=== PATIENT | female | born 1935 | race Caucasian/White ===

== ENCOUNTER 2022-06-12 17:00 | Inpatient (IN) | payer MEDICARE ==
[2022-06-12] MEDS ORDERED: MORPHINE SULFATE 4 MG/ML SYRINGE IVP STA (18:08)
[2022-06-12 18:44] LABS: Basophils # (A) 0.1 k/uL (0-0.2); Basophils % (A) 1 %; Eosinophils # (A) 0.1 k/uL (0-0.7); Eosinophils % (A) 1 %; HGB 12.5 gm/dL (11.4-16.0); Lymphocytes # (A) 1.9 k/uL (1.0-4.8); Lymphocytes % (A) 18 %; MCH 31.9 pg (25.0-35.0); MCHC 33.8 g/dL (31.0-37.0); MCV 94.3 fL (80.0-100.0); Mean Platelet Volume 8.8; Monocytes # (A) 0.4 k/uL (0-1.0); Monocytes % (A) 4 %; Neutrophils # (A) 8.6 k/uL (1.3-7.7); Neutrophils % (A) 77 %; Platelet Count 192 k/uL (150-450); RBC 3.92 m/uL (3.80-5.40); RDW 13.6 % (11.5-15.5); WBC 11.1 k/uL (3.8-10.6)
[2022-06-12 18:50] LABS: Albumin 4.5 g/dL (3.5-5.0); Calcium 10.1 mg/dL (8.4-10.2); Potassium 4.8 mmol/L (3.5-5.1); Total Bilirubin 0.3 mg/dL (0.2-1.3); Total Protein 6.9 g/dL (6.3-8.2)
[2022-06-12 19:00] LABS: Partial Thromboplastin Time 22.8 sec (22.0-30.0); Prothrombin Time 10.5 sec (9.0-12.0)
--- NOTE | 2022-06-12 19:02 | XR ---
EXAMINATION TYPE: XR Hip RT and AP Pelvis DATE OF EXAM: 06/12/2022 COMPARISON: NONE HISTORY: Fall. Pain TECHNIQUE: 3 views FINDINGS: There is impacted fracture of the right femoral neck. There is no dislocation. There is 3 c m of displacement. The pelvic ring is intact. Proximal left femur is intact. IMPRESSION: Acute impacted and displaced femoral neck fracture of the right hip.
--- NOTE | 2022-06-12 19:03 | XR ---
EXAMINATION TYPE: XR chest 1V DATE OF EXAM: 06/12/2022 COMPARISON: NONE HISTORY: Preop TECHNIQUE: Single view FINDINGS: There is no heart failure nor confluent pneumonic infiltrate. Costophrenic angles are clear . There are no hilar masses. The bony thorax is intact. IMPRESSION: No active cardiopulmonary disease. Normal heart.
--- NOTE | 2022-06-12 20:33 | ED ---
General Adult HPI - General Chief complaint: Fall Stated complaint: Fall/hip pain Time Seen by Provider: 06/12/22 17:24 Source: family Mode of arrival: wheelchair Limitations: no limitations - History of Present Illness Initial comments: This is an 86-year-old female with a past medical history including hypertension, diabetes as well as mild dementia presents emergency Department with her daughter and EMS after a fall in the parking lot. The patient stated that she was walking quickly around the car when she a mechanical fall, tripping and falling landing on her right hip. The patient stated that she did not hit her head and did not lose consciousness. The patient complained of right hip pain and had a shortened and rotated right hip. The patient denied any other trauma. The patient was resting in bed comfortably and denied any lightheade dness, dizziness as well as any fevers or chills. - Related Data Home Medications Medication Instructions Recorded Confirmed Albuterol Inhaler [Ventolin Hfa 2 puff INHALATION RT-Q4H PRN 06/12/22 06/12/22 Inhaler] Albuterol Nebulized [Ventolin 2.5 mg INHALATION RT-QID PRN 06/12/22 06/12/22 Nebulized] Aspirin EC [Ecotrin Low Dose] 81 mg PO DAILY 06/12/22 06/12/22 Gabapentin [Neurontin] 100 mg PO HS 06/12/22 06/12/22 HYDROcodone/APAP 7.5-325MG [[place] 1 tab PO Q6H PRN 06/12/22 06/12/22 7.5-325] Levothyroxine Sodium [Synthroid] 50 mcg PO DAILY 06/12/22 06/12/22 Ondansetron Odt [Zofran Odt] 4 mg PO Q4-6H PRN 06/12/22 06/12/22 guaiFENesin 200 mg PO Q6H PRN 06/12/22 06/12/22 lisinopriL [Zestril] 5 mg PO DAILY 06/12/22 06/12/22 Allergies Allergy/AdvReac Type Severity Reaction Status Date / Time No Known Allergies Allergy Verified 06/12/22 21:22 Review of Systems ROS Statement: Those systems with pertinent positive or pertinent negative responses have been documented in the HPI. ROS Other: All systems not noted in ROS Statement are negative. Past Medical History Past Medical History: COPD, Diabetes Mellitus, Renal Disease History of Any Multi-Drug Resistant Organisms: None Reported Past Surgical History: Appendectomy, Hysterectomy Additional Past Surgical History / Comment(s): gallbladder removed Past Psychological History: No Psychological Hx Reported Smoking Status: Current every day smoker Past Alcohol Use History: None Reported Past Drug Use History: None Reported General Exam Limitations: no limitations General appearance: alert, in no apparent distress Head exam: Present: atraumatic, normocephalic Eye exam: Present: normal appearance, PERRL Pupils: Present: normal accommodation ENT exam: Present: normal exam, normal oropharynx, mucous membranes moist Neck exam: Present: normal inspection, full ROM Respiratory exam: Present: normal lung sounds bilaterally Cardiovascular Exam: Present: regular rate, normal rhythm, normal heart sounds GI/Abdominal exam: Present: soft, normal bowel sounds Extremities exam: Present: normal inspection (Normal inspection of the left hip and left lower extremity. Tenderness palpation noted to the posterior right hip with decreased range of motion. Right leg was externally rotated and shortened), full ROM Back exam: Present: normal inspection, full ROM Neurological exam: Present: alert, oriented X3, CN II-XII intact Psychiatric exam: Present: normal affect, normal mood Skin exam: Present: warm, dry Course Vital Signs 06/12/22 06/12/22 06/12/22 17:18 17:21 21:28 Temperature 97.7 F 98.4 F Pulse Rate 85 81 Pulse Rate [ 85 Pulse Oximetery ] Respiratory 18 18 16 Rate Blood Pressure 158/82 158/82 Blood Pressure 153/84 [Left Arm] O2 Sat by Pulse 95 91 L Oximetry Medical Decision Making - Medical Decision Making The patient was seen and evaluated in the emergency department. On physical exam, the patient was resting in bed without any acute distress. Vital signs admission were stable and within normal limits. Due to the nature the patient's complaints, an x-ray of the right hip and pelvis were obtained. X-ray showed an acute impacted fracture of the right femoral neck. Due to these findings, orthopedic surgery, Dr. Brown was contacted. She did agree to accept the patient for admission and requested medical evaluation for clearance. The patient and her daughter were told of these results and the plan for admission and surgical intervention in the morning. They were agreeable to this plan and the patient was made nothing by mouth at midnight for surgery tomorrow and was admitted in stable condition. - Lab Data Result diagrams: 06/12/22 18:20 06/12/22 18:20 Lab Results 06/12/22 06/12/22 06/12/22 Range/Units 18:20 18:20 18:20 WBC 11.1 H (3.8-10.6) k/uL RBC 3.92 (3.80-5.40) m/uL Hgb 12.5 (11.4-16.0) gm/dL Hct 37.0 (34.0-46.0) % MCV 94.3 (80.0-100.0) fL MCH 31.9 (25.0-35.0) pg MCHC 33.8 (31.0-37.0) g/dL RDW 13.6 (11.5-15.5) % Plt Count 192 (150-450) k/uL MPV 8.8 Neutrophils % 77 % Lymphocytes % 18 % Monocytes % 4 % Eosinophils % 1 % Basophils % 1 % Neutrophils # 8.6 H (1.3-7.7) k/uL Lymphocytes # 1.9 (1.0-4.8) k/uL Monocytes # 0.4 (0-1.0) k/uL Eosinophils # 0.1 (0-0.7) k/uL Basophils # 0.1 (0-0.2) k/uL PT 10.5 (9.0-12.0) sec INR 1.0 (<1.2) APTT 22.8 (22.0-30.0) sec Sodium 138 (137-145) mmol/L Potassium 4.8 (3.5-5.1) mmol/L Chloride 106 (98-107) mmol/L Carbon Dioxide 24 (22-30) mmol/L Anion Gap 8 mmol/L BUN 42 H (7-17) mg/dL Creatinine 1.24 H (0.52-1.04) mg/dL Est GFR (CKD-EPI)AfAm 46 (>60 ml/min/1.73 sqM) Est GFR (CKD-EPI)NonAf 40 (>60 ml/min/1.73 sqM) Glucose 131 H (74-99) mg/dL Calcium 10.1 (8.4-10.2) mg/dL Total Bilirubin 0.3 (0.2-1.3) mg/dL AST 24 (14-36) U/L ALT 22 (4-34) U/L Alkaline Phosphatase 98 (38-126) U/L Total Protein 6.9 (6.3-8.2) g/dL Albumin 4.5 (3.5-5.0) g/dL Urine Color Urine Appearance (Clear) Urine pH (5.0-8.0) Ur Specific [place] (1.001-1.035) Urine Protein (Negative) Urine Glucose (UA) (Negative) Urine Ketones (Negative) Urine Blood (Negative) Urine Nitrite (Negative) Urine Bilirubin (Negative) Urine Urobilinogen (<2.0) mg/dL Ur Leukocyte Esterase (Negative) Blood Type Blood Type Recheck Bld Type Recheck Status Spec Expiration Date 06/12/22 06/12/22 Range/Units 20:57 21:13 WBC (3.8-10.6) k/uL RBC (3.80-5.40) m/uL Hgb (11.4-16.0) gm/dL Hct (34.0-46.0) % MCV (80.0-100.0) fL MCH (25.0-35.0) pg MCHC (31.0-37.0) g/dL RDW (11.5-15.5) % Plt Count (150-450) k/uL MPV Neutrophils % % Lymphocytes % % Monocytes % % Eosinophils % % Basophils % % Neutrophils # (1.3-7.7) k/uL Lymphocytes # (1.0-4.8) k/uL Monocytes # (0-1.0) k/uL Eosinophils # (0-0.7) k/uL Basophils # (0-0.2) k/uL PT (9.0-12.0) sec INR (<1.2) APTT (22.0-30.0) sec Sodium (137-145) mmol/L Potassium (3.5-5.1) mmol/L Chloride (98-107) mmol/L Carbon Dioxide (22-30) mmol/L Anion Gap mmol/L BUN (7-17) mg/dL Creatinine (0.52-1.04) mg/dL Est GFR (CKD-EPI)AfAm (>60 ml/min/1.73 sqM) Est GFR (CKD-EPI)NonAf (>60 ml/min/1.73 sqM) Glucose (74-99) mg/dL Calcium (8.4-10.2) mg/dL Total Bilirubin (0.2-1.3) mg/dL AST (14-36) U/L ALT (4-34) U/L Alkaline Phosphatase (38-126) U/L Total Protein (6.3-8.2) g/dL Albumin (3.5-5.0) g/dL Urine Color Light Yellow Urine Appearance Clear (Clear) Urine pH 5.5 (5.0-8.0) Ur Specific [place] 1.011 (1.001-1.035) Urine Protein Negative (Negative) Urine Glucose (UA) Negative (Negative) Urine Ketones Negative (Negative) Urine Blood Negative (Negative) Urine Nitrite Negative (Negative) Urine Bilirubin Negative (Negative) Urine Urobilinogen <2.0 (<2.0) mg/dL Ur Leukocyte Esterase Negative (Negative) Blood Type O Positive Blood Type Recheck No Previous Record Bld Type Recheck Status CABO Indicated Spec Expiration Date 06/15/20222312 Disposition Clinical Impression: Closed right hip fracture Disposition: ADMITTED IP TO THIS [facility] Condition: Stable Is patient prescribed a controlled substance at d/c from ED?: No Referrals: Nonstaff,Physician [Primary Care Provider] - 1-2 days Time of Disposition: 20:00 Decision Date: 06/12/22 Decision Time: 20:00
[2022-06-12] MEDS ORDERED: NALOXONE 0.4 MG/ML 1 ML VIAL IV PRN (20:35)
[2022-06-12] MEDS: SODIUM CHLORIDE 0.9% 1,000 ML IV SCH (20:57)
[2022-06-12] MEDS: HYDROmorphone 0.5 MG/0.5 ML SYRINGE IVP PRN (21:38)
[2022-06-12 21:41] LABS: Appearance,Urine Clear (Clear); Bilirubin,Urine Negative (Negative); Blood,Urine Negative (Negative); Color,Urine Light Yellow; Glucose,Urine (UA) Negative (Negative); Ketones,Urine Negative (Negative); Leukocyte Esterase,Urine Negative (Negative); Nitrite,Urine Negative (Negative); PH, Urine 5.5 (5.0-8.0); Protein,Urine Negative (Negative); Specific Gravity,Urine 1.011 (1.001-1.035); Urobilinogen,Urine <2.0 mg/dL (<2.0)
[2022-06-12] MEDS ORDERED: guaiFENesin SYRUP 100MG/5ML 200 MG/10 ML CUP PO PRN (22:22)
[2022-06-12] MEDS: GABAPENTIN 100 MG CAP PO SCH (22:40)
[2022-06-13] MEDS: HYDROmorphone 0.5 MG/0.5 ML SYRINGE IVP PRN (03:25)
[2022-06-13] MEDS: ONDANSETRON 4 MG/2 ML VIAL IVP PRN (06:31)
[2022-06-13] MEDS: LEVOTHYROXINE 50 MCG TAB PO SCH (06:31)
[2022-06-13] MEDS: ALBUTEROL NEBULIZED 2.5 MG/3 ML INHALATION PRN ×3 (07:24→18:04)
[2022-06-13] MEDS ORDERED: lisinopriL 5 MG TAB PO SCH (09:00)
[2022-06-13] MEDS: ASPIRIN 81 MG PO SCH (09:04)
[2022-06-13] MEDS: SODIUM CHLORIDE 0.9% 1,000 ML IV SCH ×2 (09:05→22:47)
--- NOTE | 2022-06-13 11:48 | P.HPOR ---
History of Present Illness H&P Date: 06/13/22 Chief Complaint: Right hip pain The patient is an 86-year-old female with a past medical history including COPD, diabetes, and renal failure who presented to the emergency department yesterday after sustaining a fall outside. The patient's daughter is at bedside and states that she was walking around her truck and fell. The patient does not use a cane or walker. She lives with her son but her daughter frequently takes care of her. X-rays in the emergency department revealed a displaced right femoral neck fracture. She was admitted to orthopedics for surgical intervention. Today, the patient appears comfortable laying in bed. She is very hard of hearing and is currently not wearing her hearing aids. Review of Systems ROS unobtainable: due to mental status Past Medical History Past Medical History: COPD, Diabetes Mellitus, Renal Disease Additional Past Medical History / Comment(s): diabetes controlled with diet History of Any Multi-Drug Resistant Organisms: None Reported Past Surgical History: Appendectomy, Hysterectomy Additional Past Surgical History / Comment(s): gallbladder removed Past Anesthesia/Blood Transfusion Reactions: No Reported Reaction Past Psychological History: No Psychological Hx Reported Smoking Status: Current every day smoker Past Alcohol Use History: None Reported Past Drug Use History: None Reported Medications and Allergies Home Medications Medication Instructions Recorded Confirmed Type Albuterol Inhaler [Ventolin Hfa 2 puff INHALATION RT-Q4H PRN 06/12/22 06/12/22 History Inhaler] Albuterol Nebulized [Ventolin 2.5 mg INHALATION RT-QID PRN 06/12/22 06/12/22 History Nebulized] Aspirin EC [Ecotrin Low Dose] 81 mg PO DAILY 06/12/22 06/12/22 History Gabapentin [Neurontin] 100 mg PO HS 06/12/22 06/12/22 History HYDROcodone/APAP 7.5-325MG [[place] 1 tab PO Q6H PRN 06/12/22 06/12/22 History 7.5-325] Levothyroxine Sodium [Synthroid] 50 mcg PO DAILY 06/12/22 06/12/22 History Ondansetron Odt [Zofran Odt] 4 mg PO Q4-6H PRN 06/12/22 06/12/22 History guaiFENesin 200 mg PO Q6H PRN 06/12/22 06/12/22 History lisinopriL [Zestril] 5 mg PO DAILY 06/12/22 06/12/22 History Allergies Allergy/AdvReac Type Severity Reaction Status Date / Time No Known Allergies Allergy Verified 06/12/22 21:22 Physical Examination Osteopathic Statement: *. No significant issues noted on an osteopathic structural exam other than those noted in the History and Physical/Consult. The patient is a 86 year old female that is no acute distress. She is alert and oriented x2 and very hard of hearing. The patient's head is normocephalic and atraumatic. Exam of the cervical spine reveals no pain upon palpation or range of motion. Exam of the bilateral upper extremities reveal no obvious deformities or pain upon range of motion. Exam of the left lower extremity reveals no pain upon palpation. Exam of the right lower extremity reveals a externally rotated and shortened leg. No pain upon palpation to the lateral hip. There is pain upon logrolling and any range of motion of the leg. Bilateral calves are soft and nontender. Patient has good foot and ankle motion bilaterally. Neurological and circulatory status is intact. Results X-rays of the right hip reveal a displaced femoral neck fracture. - Labs Labs: Abnormal Lab Results - Last 24 Hours (Table) 06/12/22 06/12/22 Range/Units 18:20 18:20 WBC 11.1 H (3.8-10.6) k/uL Neutrophils # 8.6 H (1.3-7.7) k/uL BUN 42 H (7-17) mg/dL Creatinine 1.24 H (0.52-1.04) mg/dL Glucose 131 H (74-99) mg/dL H & H 06/12/22 Range/Units 18:20 Hgb 12.5 (11.4-16.0) gm/dL Hct 37.0 (34.0-46.0) % Coagulation 06/12/22 Range/Units 18:20 INR 1.0 (<1.2) Result Diagrams: 06/12/22 18:20 06/12/22 18:20 Assessment and Plan (1) Diabetes mellitus Current Visit: Yes Status: Acute Code(s): E11.9 - TYPE 2 DIABETES MELLITUS WITHOUT COMPLICATIONS SNOMED Code(s): 37539238 (2) Renal failure Current Visit: Yes Status: Acute Code(s): N19 - UNSPECIFIED KIDNEY FAILURE SNOMED Code(s): 92471095 (3) COPD (chronic obstructive pulmonary disease) Current Visit: Yes Status: Acute Code(s): J44.9 - CHRONIC OBSTRUCTIVE PULMONARY DISEASE, UNSPECIFIED SNOMED Code(s): 05544274 (4) Closed right hip fracture Current Visit: Yes Status: Acute Code(s): S72.001A - FRACTURE OF UNSP PART OF NECK OF RIGHT FEMUR, INIT SNOMED Code(s): 787678800 Plan: The clinical and x-ray findings were discussed with the patient and her daughter. The case was discussed at length with Dr. Brown Treatment options were discussed and surgical intervention is recommended. We discussed the surgical plan as well as the expected postoperative course. Risks and benefits were reviewed including (but not limited to) the risks of infection, bleeding, blood clots, dislocation, delayed or nonunion, anesthesia-related complications and possible need for additional surgery. Questions were invited and answered. The patient expressed understanding and wishes to proceed with surgery. The patient will be kept on bedrest. Continue PRN pain management. NPO today. She is scheduled for a right hip hemiarthroplasty later this afternoon. She has been cleared by internal medicine this morning. Agree with above. PT seen and examined. Care discussed with the patient's daughter. Plan for hemiarthroplasty today.
[2022-06-13] MEDS ORDERED: PHENYLEPHRINE-0.9% NACL SYG 1,000 MCG/10 ML SYRINGE ONE (12:21)
[2022-06-13] MEDS ORDERED: PROPOFOL 10 MG/ML 20 ML VIAL IV ONE (12:21)
[2022-06-13] MEDS ORDERED: MIDAZOLAM 2 MG/2 ML VIAL ONE (12:21)
[2022-06-13] MEDS ORDERED: fentaNYL (PF) 50 MCG/ML 2 ML AMP ONE (12:21)
[2022-06-13] MEDS ORDERED: KETAMINE 10 MG/ML 20 ML VIAL ONE (12:21)
[2022-06-13] MEDS ORDERED: SODIUM CHLORIDE 0.9% 1,000 ML IV ONE ×2 (12:27→13:24)
--- NOTE | 2022-06-13 13:28 | P.CONS ---
History of Present Illness - Reason for Consult Preoperative clearance - History of Present Illness Patient is pleasant 86-year-old with moderate to severe dementia had a mechanical fall. Patient does have history of COPD with oxygen lives with the her son with frequent visits from daughter. X-rays showed a displaced right femoral fracture. Patient's EKG showed some ST depressions but patient is going for surgery today initially wanted to order an echocardiogram to see the any wall motion abnormalities patient doesn't have any history of coronary artery disease patient is bit dehydrated with the elevated creatinine of 1.24 baseline creatinine is not available bun of 42 to patient does have leukocytosis. Patient denied any chest pain or shortness of breath at this time patient is on 2 L of oxygen which she wears at home REVIEW OF SYSTEMS: All other review of systems are negative except those mentioned above PHYSICAL EXAMINATION: GENERAL: The patient is alert and oriented x2, not in any acute distress. Well developed, well nourished. HEENT: Pupils are round and equally reacting to light. EOMI. No scleral icterus. No conjunctival pallor. Normocephalic, atraumatic. No pharyngeal erythema. No thyromegaly. CARDIOVASCULAR: S1 and S2 present. No murmurs, rubs, or gallops. PULMONARY: Chest is clear to auscultation, no wheezing or crackles. ABDOMEN: Soft, nontender, nondistended, normoactive bowel sounds. No palpable organomegaly. MUSCULOSKELETAL: Deferred to orthopedic surgery EXTREMITIES: No cyanosis, clubbing, or pedal edema. NEUROLOGICAL: Gross neurological examination did not reveal any focal deficits. SKIN: No rashes. Assessment and plan -Preoperative risk assessment for orthopedic surgery for right hip fracture: Patient is moderate operative risk for surgery, same thing was discussed with the daughter at bedside and daughter is agreeable for surgery considering the surgery improves patient functionality. -Leukocytosis secondary to fall -Mild acute renal failure prerenal azotemia due to dehydration continue with IV fluids -COPD without any acute exacerbation continue with oxygen as needed -Hypertension next and have an hypothyroidism DVT prophylaxis: Subcutaneous heparin Past Medical History Past Medical History: COPD, Diabetes Mellitus, Renal Disease Additional Past Medical History / Comment(s): diabetes controlled with diet History of Any Multi-Drug Resistant Organisms: None Reported Past Surgical History: Appendectomy, Hysterectomy Additional Past Surgical History / Comment(s): gallbladder removed Past Anesthesia/Blood Transfusion Reactions: No Reported Reaction Past Psychological History: No Psychological Hx Reported Smoking Status: Current every day smoker Past Alcohol Use History: None Reported Past Drug Use History: None Reported Medications and Allergies Home Medications Medication Instructions Recorded Confirmed Type Albuterol Inhaler [Ventolin Hfa 2 puff INHALATION RT-Q4H PRN 06/12/22 06/12/22 History Inhaler] Albuterol Nebulized [Ventolin 2.5 mg INHALATION RT-QID PRN 06/12/22 06/12/22 History Nebulized] Aspirin EC [Ecotrin Low Dose] 81 mg PO DAILY 06/12/22 06/12/22 History Gabapentin [Neurontin] 100 mg PO HS 06/12/22 06/12/22 History HYDROcodone/APAP 7.5-325MG [[place] 1 tab PO Q6H PRN 06/12/22 06/12/22 History 7.5-325] Levothyroxine Sodium [Synthroid] 50 mcg PO DAILY 06/12/22 06/12/22 History Ondansetron Odt [Zofran Odt] 4 mg PO Q4-6H PRN 06/12/22 06/12/22 History guaiFENesin 200 mg PO Q6H PRN 06/12/22 06/12/22 History lisinopriL [Zestril] 5 mg PO DAILY 06/12/22 06/12/22 History Allergies Allergy/AdvReac Type Severity Reaction Status Date / Time No Known Allergies Allergy Verified 06/12/22 21:22 Physical Exam Vitals: Vital Signs Temp Pulse Pulse Resp BP BP Pulse Ox 06/13/22 12:00 95 06/13/22 11:50 90 06/13/22 11:41 88 06/13/22 09:00 97 16 96 06/13/22 07:42 98 134/76 90 L 06/13/22 07:41 96 06/13/22 07:28 97 06/13/22 07:24 95 06/13/22 01:29 98.3 F 86 15 107/66 93 L 06/12/22 21:28 98.4 F 85 16 153/84 91 L 06/12/22 17:21 81 18 158/82 06/12/22 17:18 97.7 F 85 18 158/82 95 Intake and Output 06/12/22 06/13/22 06/13/22 22:59 06:59 14:59 Intake Total 850 Output Total 1300 Balance -1300 850 Intake: IV 850 Output: Urine 1300 Other: Voiding Method Indwelling Catheter Weight 43.091 kg Results CBC & Chem 7: 06/12/22 18:20 06/12/22 18:20 Labs: Abnormal Lab Results - Last 24 Hours (Table) 06/12/22 06/12/22 Range/Units 18:20 18:20 WBC 11.1 H (3.8-10.6) k/uL Neutrophils # 8.6 H (1.3-7.7) k/uL BUN 42 H (7-17) mg/dL Creatinine 1.24 H (0.52-1.04) mg/dL Glucose 131 H (74-99) mg/dL
[2022-06-13] MEDS ORDERED: ceFAZolin 3,000 MG in SODIUM CHLORIDE 0.9% IRRIGATIO 3,000 ML IRRIGATION ONE (13:42)
[2022-06-13] MEDS ORDERED: MAGNESIUM HYDROXIDE 2,400 MG/10 ML CUP PO PRN (14:06)
[2022-06-13 14:11] LABS: Glucose,Whole Blood 98 mg/dL (70-110)
--- NOTE | 2022-06-13 14:30 | P.OP ---
Date of Procedure: 06/13/22 Preoperative Diagnosis: Right femoral neck fracture Postoperative Diagnosis: Same Procedure(s) Performed: Right hip uncemented hemiarthroplasty Implants: [employer], collared size 1 stem, +4 neck, 44 mm head Anesthesia: spinal Surgeon: Sophie Brown Founder And Chief Technical Officer #1: Saleem Cordova Founder And Chief Technical Officer #2: Olesya Amaro Estimated Blood Loss (ml): 100 Condition: stable Disposition: PACU Indications for Procedure: Brunilda is an 86-year-old female who had a ground-level fall sustaining a right femoral neck fracture that is displaced. We had a discussion with the patient and her daughter about her treatment options and they have decided to proceed with a harshad-hip arthroplasty. Description of Procedure: Patient, operative extremity, and procedure were identified in the preoperative holding area. After informed consent was obtained from the patient's daughter, her POA, the patient was brought back to the operating room. A spinal anesthetic was provided by the anesthesia team. The patient was then moved onto the operating table and placed in a lateral position with the [place] medina. All bony prominences and neurovascular structures were carefully padded and protected. The extremity was then prepped and draped in normal sterile fashion. After formal timeout was performed, a longitudinal incision was made centered over the greater trochanter. Dissection was carried down through the subcutaneo us tissue to the IT band. This was then split longitudinally and freed up from the abductors. The Charnley retractor was inserted. A modified Kidd injured her approach was utilized splitting the gluteus medius and lifting the anterior capsule along with lifting the abductors and part of the vastus. This was done with the hip in external rotation. The fracture was identified and there was a flush of hematoma. Further external rotation elevated the femoral neck and this was visualized down to the lesser trochanter. A revised neck cut was made about a finger's breath above the lesser trochanter. Using the corkscrew the femoral head was removed and measured 45 mm. The leg was then placed into the bag and external rotation. This revealed the proximal and of the femur. The jukebox routeman tool was then utilized to open the canal. The canal finder was then inserted followed by the rattail rasp. This was used to lateralize. The chili pepper rasp were then utilized to further lateralize. Serial broaches were then introduced with as much lateralization as possible and about 15 of anteversion. A size 1 was deemed to be a good fit. The broach was augmented with the trials a 0 neck and a 44 head. The hip was then reduced and taken through range of motion. It was stable past 90 of flexion and internal rotation. Patient was able to achieve full extension of the hip without undue tension. Leg lengths were just shy of even. There was some shuck. Hip was then dislocated and all trials were removed. The wound was thoroughly washed with pulse lavage. Final implants were selected a size 1 collared stem and 44 unipolar head. The stem was gently impacted into place. A 4+ neck was selected and fit into the 44 unipolar head. This construct was then inserted onto the Meyer taper and firmly tapped into place. The hip was then reduced and again taken through range of motion. The hip was stable and there was minimal shuck. Wound was again irrigated with pulse lavage. The abductors and capsule were repaired back to the bone with bone tunnels and FiberWire. There is good approximation of the soft tissue. The IT band was then repaired with a combination of FiberWire and stratafix. The remainder of the wound was closed in a layered fashion with 2-0 Vicryl and 4-0 Monocryl and skin glue. Wound was dressed with a operative foam dressing. Patient was aroused by the anesthesia team and brought back to PACU in stable condition.
--- NOTE | 2022-06-13 14:39 | XR ---
EXAMINATION TYPE: XR Hip Limited RT DATE OF EXAM: 06/13/2022 COMPARISON: NONE HISTORY: Postop hip surgery TECHNIQUE: Single view FINDINGS: There is right hip prosthesis. Components appear in anatomic position. IMPRESSION: No complicating process seen.
[2022-06-13] MEDS: HYDROcodone/APAP 7.5-325MG 1 EACH TAB PO PRN (15:52)
--- NOTE | 2022-06-13 19:39 | XR ---
EXAMINATION TYPE: XR pelvis AP view DATE OF EXAM: 06/13/2022 COMPARISON: Yesterday HISTORY: Postop hip surgery TECHNIQUE: Single view FINDINGS: There is right hip prosthesis. Components appear in anatomic position. IMPRESSION: No complicating process seen.
[2022-06-13 20:45] LABS: Glucose,Whole Blood 191 mg/dL (70-110)
[2022-06-13] MEDS ORDERED: HEPARIN SODIUM,PORCINE/PF 5,000 UNIT/0.5 ML SYRINGE SQ SCH (21:00)
[2022-06-13] MEDS: SENNOSIDES-DOCUSATE SODIUM 1 EACH TAB PO SCH (21:51)
[2022-06-13] MEDS: GABAPENTIN 100 MG CAP PO SCH (21:52)
[2022-06-14] MEDS: ONDANSETRON 4 MG/2 ML VIAL IVP PRN (01:31)
[2022-06-14 01:35] LABS: Glucose,Whole Blood 206 mg/dL (70-110)
[2022-06-14 05:57] LABS: Glucose,Whole Blood 179 mg/dL (70-110)
[2022-06-14] MEDS: LEVOTHYROXINE 50 MCG TAB PO SCH (06:00)
[2022-06-14] MEDS: ASPIRIN 81 MG PO SCH (08:50)
[2022-06-14] MEDS ORDERED: ENOXAPARIN 40 MG/0.4 ML SYRINGE SQ SCH (09:00)
[2022-06-14 09:02] LABS: Basophils # (A) 0.03 X 10*3/uL (0.00-0.10); Basophils % (A) 0.2 %; Eosinophils # (A) 0 X 10*3/uL (0.04-0.35); Eosinophils % (A) 0 %; HGB 9.8 g/dL (12.0-15.0); Immature Grans, Automated 0.3 %; Lymphocytes # (A) 0.56 X 10*3/uL (0.90-5.00); Lymphocytes % (A) 4.5 %; MCH 31.5 pg (27.0-32.0); MCHC 31.6 g/dL (32.0-37.0); MCV 99.7 fL (80.0-97.0); Monocytes # (A) 0.85 X 10*3/uL (0.20-1.00); Monocytes % (A) 6.8 %; NRBC Per 100 WBC 0 /100 WBCS (0.0-0.0); Neutrophils # (A) 11.03 X 10*3/uL (1.80-7.70); Neutrophils % (A) 88.2 %; Platelet Count 152 X 10*3/uL (140-440); RBC 3.11 X 10*6/uL (4.10-5.20); RDW 14.3 % (11.5-14.5); WBC 12.51 X 10*3/uL (4.50-10.00)
[2022-06-14 09:19] LABS: African American GFR (CKD) 33.7 (60.0-200.0); Anion Gap 11.4 mmol/L (10.00-18.00); BUN/Creat Ratio 21.18 Ratio (12.00-20.00); Blood Urea Nitrogen 34.1 mg/dL (9.0-27.0); Calcium 9.1 mg/dL (8.7-10.3); Non-African American GFR(CKD) 29.1 (60.0-200.0); Potassium 4.6 mmol/L (3.5-5.5)
--- NOTE | 2022-06-14 09:38 | XR ---
EXAMINATION TYPE: XR chest 1V portable DATE OF EXAM: 06/14/2022 COMPARISON: 06/12/2022 HISTORY: Hypoxia TECHNIQUE: Single frontal view of the chest is obtained. FINDINGS: There is hyperinflation. Bilateral lower lobe infiltrate and small effusion. Heart size no rmal. Curvature of the spine with vascular calcifications. No overt failure. IMPRESSION: 1. Bilateral lower lobe infiltrate and pleural effusion correlate for pneumonia. 2. COPD.
[2022-06-14 10:47] VITALS: BMI 17.4
[2022-06-14] MEDS: PIPERACILLIN-TAZOBACTAM 3.375 GM in SODIUM CHLORIDE 0.9% 100 ML IVPB SCH ×2 (11:24→22:05)
[2022-06-14 11:26] LABS: Glucose,Whole Blood 156 mg/dL (70-110)
[2022-06-14 12:34] LABS: ABG Base Excess -5.7 mmol/L; ABG HCO3 20 mmol/L (21-25); ABG Oxygen Saturation 84.4 % (94-97); ABG PCO2 37 mmHg (35-45); ABG PH 7.34 (7.35-7.45); ABG TCO2 21 mmol/L (19-24); Allen Test Performed? Yes
[2022-06-14 12:38] LABS: ABG PO2 50 mmHg (83-108)
[2022-06-14] MEDS: ALBUTEROL NEBULIZED 2.5 MG/3 ML INHALATION PRN (12:56)
--- NOTE | 2022-06-14 13:14 | P.PN ---
Subjective Progress Note Date: 06/14/22 Principal diagnosis: Status post right hip hemiarthroplasty This is a 86 year-old female post right hip hemiarthroplasty. This is post-op day 1. The patient was evaluated at the bedside today. The patient denies nausea, vomiting, abdominal pain, shortness of breath, and chest pain this morning. She states her pain is controlled at this time. The patient has not been up with physical therapy. A swallow evaluation has been ordered and we are awaiting pulmonary to see her as well. She is currently on a non-rebreather. The patient states her breathing feels good right now and she denies any shortness of breath or chest pain. Objective - Vital Signs Vital signs: Vital Signs Temp 99.7 F H 06/14/22 07:24 Pulse 96 06/14/22 13:07 Resp 18 06/14/22 13:07 BP 110/58 06/14/22 07:24 Pulse Ox 94 L 06/14/22 07:26 FiO2 Intake & Output 06/13/22 06/14/22 06/14/22 18:59 06:59 18:59 Intake Total 1051 Output Total 830 250 Balance 221 -250 Weight 43.091 kg Intake: IV 1051 Output: Urine 730 250 Estimated Blood Loss 100 Other: Voiding Method Indwelling Catheter Indwelling Catheter - Exam The patient does not appear in acute distress. Alert and orientated x3. Dressing is clean dry and intact. Incision appears fine with no erythema or active drainage. Calf is soft and nontender. Good foot and ankle motion without difficulty. Sensation and circulatory status is intact. - Labs CBC & Chem 7: 06/14/22 05:53 06/14/22 05:53 Labs: Abnormal Lab Results - Last 24 Hours (Table) 06/13/22 06/14/22 06/14/22 Range/Units 20:44 01:33 05:53 WBC 12.51 H (4.50-10.00) X 10*3/uL RBC 3.11 L (4.10-5.20) X 10*6/uL Hgb 9.8 L (12.0-15.0) g/dL Hct 31.0 L (37.2-46.3) % MCV 99.7 H (80.0-97.0) fL MCHC 31.6 L (32.0-37.0) g/dL Neutrophils # 11.03 H (1.80-7.70) X 10*3/uL Lymphocytes # 0.56 L (0.90-5.00) X 10*3/uL Eosinophils # 0 L (0.04-0.35) X 10*3/uL ABG pH (7.35-7.45) ABG pO2 (83-108) mmHg ABG HCO3 (21-25) mmol/L ABG O2 Saturation (94-97) % Chloride (96-109) mmol/L Carbon Dioxide (20.0-27.5) mmol/L BUN (9.0-27.0) mg/dL Creatinine (0.6-1.5) mg/dL Est GFR (CKD-EPI)AfAm (60.0-200.0) Est GFR (CKD-EPI)NonAf (60.0-200.0) BUN/Creatinine Ratio (12.00-20.00) Ratio Glucose (70-110) mg/dL POC Glucose (mg/dL) 191 H 206 H (70-110) mg/dL Total Creatine Kinase (30-135) U/L 06/14/22 06/14/22 06/14/22 Range/Units 05:53 05:55 11:24 WBC (4.50-10.00) X 10*3/uL RBC (4.10-5.20) X 10*6/uL Hgb (12.0-15.0) g/dL Hct (37.2-46.3) % MCV (80.0-97.0) fL MCHC (32.0-37.0) g/dL Neutrophils # (1.80-7.70) X 10*3/uL Lymphocytes # (0.90-5.00) X 10*3/uL Eosinophils # (0.04-0.35) X 10*3/uL ABG pH (7.35-7.45) ABG pO2 (83-108) mmHg ABG HCO3 (21-25) mmol/L ABG O2 Saturation (94-97) % Chloride 113 H (96-109) mmol/L Carbon Dioxide 19.0 L (20.0-27.5) mmol/L BUN 34.1 H (9.0-27.0) mg/dL Creatinine 1.6 H (0.6-1.5) mg/dL Est GFR (CKD-EPI)AfAm 33.7 L (60.0-200.0) Est GFR (CKD-EPI)NonAf 29.1 L (60.0-200.0) BUN/Creatinine Ratio 21.18 H (12.00-20.00) Ratio Glucose 181 H (70-110) mg/dL POC Glucose (mg/dL) 179 H 156 H (70-110) mg/dL Total Creatine Kinase (30-135) U/L 06/14/22 06/14/22 Range/Units 12:08 12:30 WBC (4.50-10.00) X 10*3/uL RBC (4.10-5.20) X 10*6/uL Hgb (12.0-15.0) g/dL Hct (37.2-46.3) % MCV (80.0-97.0) fL MCHC (32.0-37.0) g/dL Neutrophils # (1.80-7.70) X 10*3/uL Lymphocytes # (0.90-5.00) X 10*3/uL Eosinophils # (0.04-0.35) X 10*3/uL ABG pH 7.34 L (7.35-7.45) ABG pO2 50 L* (83-108) mmHg ABG HCO3 20 L (21-25) mmol/L ABG O2 Saturation 84.4 L (94-97) % Chloride (96-109) mmol/L Carbon Dioxide (20.0-27.5) mmol/L BUN (9.0-27.0) mg/dL Creatinine (0.6-1.5) mg/dL Est GFR (CKD-EPI)AfAm (60.0-200.0) Est GFR (CKD-EPI)NonAf (60.0-200.0) BUN/Creatinine Ratio (12.00-20.00) Ratio Glucose (70-110) mg/dL POC Glucose (mg/dL) (70-110) mg/dL Total Creatine Kinase 323 H (30-135) U/L Assessment and Plan (1) Diabetes mellitus Current Visit: Yes Status: Acute Code(s): E11.9 - TYPE 2 DIABETES MELLITUS WITHOUT COMPLICATIONS SNOMED Code(s): 28481699 (2) Renal failure Current Visit: Yes Status: Acute Code(s): N19 - UNSPECIFIED KIDNEY FAILURE SNOMED Code(s): 87032290 (3) COPD (chronic obstructive pulmonary disease) Current Visit: Yes Status: Acute Code(s): J44.9 - CHRONIC OBSTRUCTIVE PULMONARY DISEASE, UNSPECIFIED SNOMED Code(s): 69519028 (4) Closed right hip fracture Current Visit: Yes Status: Acute Code(s): S72.001A - FRACTURE OF UNSP PART OF NECK OF RIGHT FEMUR, INIT SNOMED Code(s): 960369071 Plan: 1. Continue pain control 2. Anticoagulation with Lovenox 3. Start physical therapy and ambulation, weightbearing as tolerated with a walker. 4. Anticipate discharge to skilled rehab when medically stable.
[2022-06-14 13:20] LABS: Creatine Kinase MB 3.8 ng/mL (0.0-2.4)
[2022-06-14 13:23] LABS: Troponin I 0.044 ng/mL (0.000-0.034)
[2022-06-14] MEDS: SODIUM CHLORIDE 0.9% 1,000 ML IV SCH (14:11)
--- NOTE | 2022-06-14 14:28 | P.PN ---
Subjective Progress Note Date: 06/14/22 Patient is pleasant 86-year-old with moderate to severe dementia had a mechanical fall. Patient does have history of COPD with oxygen lives with the her son with frequent visits from daughter. X-rays showed a displaced right femoral fracture. Patient's EKG showed some ST depressions but patient is going for surgery today initially wanted to order an echocardiogram to see the any wall motion abnormalities patient doesn't have any history of coronary artery disease patient is bit dehydrated with the elevated creatinine of 1.24 baseline creatinine is not available bun of 42 to patient does have leukocytosis. Patient denied any chest pain or shortness of breath at this time patient is on 2 L of oxygen which she wears at home 06/14/22. Patient seen and examined. Patient oxygen requirement increased this morning, had to be placed on 15 L of oxygen via Ventimask. Does not look in any respiratory distress on exam. Denies any chest pain. Case discussed with nursing staff REVIEW OF SYSTEMS: CONSTITUTIONAL: No fever, no malaise,. CARDIOVASCULAR: No chest pain, no palpitations, no syncope. PULMONARY: no cough, GASTROINTESTINAL: No diarrhea, no nausea, no vomiting, no abdominal pain. NEUROLOGICAL: No headaches, no weakness, PHYSICAL EXAMINATION: GENERAL: The patient is alert and oriented x3, not in any acute distress. Well developed, well nourished. HEENT: Pupils are round and equally reacting to light. EOMI. No scleral icterus. No conjunctival pallor. Normocephalic, atraumatic. No pharyngeal erythema. No thyromegaly. CARDIOVASCULAR: S1 and S2 present. No murmurs, rubs, or gallops. PULMONARY: Coarse breath some bilaterally ABDOMEN: Soft, nontender, nondistended, normoactive bowel sounds. No palpable organomegaly. MUSCULOSKELETAL: No joint swelling or deformity. EXTREMITIES: No cyanosis, clubbing, or pedal edema. NEUROLOGICAL: Gross neurological examination did not reveal any focal deficits. SKIN: No rashes. Assessment and plan Acute hypoxic respiratory failure Bacterial pneumonia Status post right hip hemiarthroplasty -Leukocytosis MARIA ELENA -COPD -Hypertension hypothyroidism Plan; Continue oxygen supplementation. Order stat ABGs ordered d-dimer, troponin. Results of chest x-ray noted, shows bilateral lower lobe infiltrate. Start patient on IV Zosyn. Consult pulmonary. Objective - Vital Signs Vital signs: Vital Signs Temp 99.7 F H 06/14/22 07:24 Pulse 96 06/14/22 13:07 Resp 18 06/14/22 13:07 BP 110/58 06/14/22 07:24 Pulse Ox 94 L 06/14/22 07:26 FiO2 Intake & Output 06/13/22 06/14/22 06/14/22 18:59 06:59 18:59 Intake Total 1051 Output Total 830 250 Balance 221 -250 Weight 43.091 kg Intake: IV 1051 Output: Urine 730 250 Estimated Blood Loss 100 Other: Voiding Method Indwelling Catheter Indwelling Catheter - Labs CBC & Chem 7: 06/14/22 05:53 06/14/22 05:53 Labs: Abnormal Lab Results - Last 24 Hours (Table) 06/13/22 06/14/22 06/14/22 Range/Units 20:44 01:33 05:53 WBC 12.51 H (4.50-10.00) X 10*3/uL RBC 3.11 L (4.10-5.20) X 10*6/uL Hgb 9.8 L (12.0-15.0) g/dL Hct 31.0 L (37.2-46.3) % MCV 99.7 H (80.0-97.0) fL MCHC 31.6 L (32.0-37.0) g/dL Neutrophils # 11.03 H (1.80-7.70) X 10*3/uL Lymphocytes # 0.56 L (0.90-5.00) X 10*3/uL Eosinophils # 0 L (0.04-0.35) X 10*3/uL ABG pH (7.35-7.45) ABG pO2 (83-108) mmHg ABG HCO3 (21-25) mmol/L ABG O2 Saturation (94-97) % Chloride (96-109) mmol/L Carbon Dioxide (20.0-27.5) mmol/L BUN (9.0-27.0) mg/dL Creatinine (0.6-1.5) mg/dL Est GFR (CKD-EPI)AfAm (60.0-200.0) Est GFR (CKD-EPI)NonAf (60.0-200.0) BUN/Creatinine Ratio (12.00-20.00) Ratio Glucose (70-110) mg/dL POC Glucose (mg/dL) 191 H 206 H (70-110) mg/dL Total Creatine Kinase (30-135) U/L CK-MB (CK-2) (0.0-2.4) ng/mL Troponin I (0.000-0.034) ng/mL 06/14/22 06/14/22 06/14/22 Range/Units 05:53 05:55 11:24 WBC (4.50-10.00) X 10*3/uL RBC (4.10-5.20) X 10*6/uL Hgb (12.0-15.0) g/dL Hct (37.2-46.3) % MCV (80.0-97.0) fL MCHC (32.0-37.0) g/dL Neutrophils # (1.80-7.70) X 10*3/uL Lymphocytes # (0.90-5.00) X 10*3/uL Eosinophils # (0.04-0.35) X 10*3/uL ABG pH (7.35-7.45) ABG pO2 (83-108) mmHg ABG HCO3 (21-25) mmol/L ABG O2 Saturation (94-97) % Chloride 113 H (96-109) mmol/L Carbon Dioxide 19.0 L (20.0-27.5) mmol/L BUN 34.1 H (9.0-27.0) mg/dL Creatinine 1.6 H (0.6-1.5) mg/dL Est GFR (CKD-EPI)AfAm 33.7 L (60.0-200.0) Est GFR (CKD-EPI)NonAf 29.1 L (60.0-200.0) BUN/Creatinine Ratio 21.18 H (12.00-20.00) Ratio Glucose 181 H (70-110) mg/dL POC Glucose (mg/dL) 179 H 156 H (70-110) mg/dL Total Creatine Kinase (30-135) U/L CK-MB (CK-2) (0.0-2.4) ng/mL Troponin I (0.000-0.034) ng/mL 06/14/22 06/14/22 Range/Units 12:08 12:30 WBC (4.50-10.00) X 10*3/uL RBC (4.10-5.20) X 10*6/uL Hgb (12.0-15.0) g/dL Hct (37.2-46.3) % MCV (80.0-97.0) fL MCHC (32.0-37.0) g/dL Neutrophils # (1.80-7.70) X 10*3/uL Lymphocytes # (0.90-5.00) X 10*3/uL Eosinophils # (0.04-0.35) X 10*3/uL ABG pH 7.34 L (7.35-7.45) ABG pO2 50 L* (83-108) mmHg ABG HCO3 20 L (21-25) mmol/L ABG O2 Saturation 84.4 L (94-97) % Chloride (96-109) mmol/L Carbon Dioxide (20.0-27.5) mmol/L BUN (9.0-27.0) mg/dL Creatinine (0.6-1.5) mg/dL Est GFR (CKD-EPI)AfAm (60.0-200.0) Est GFR (CKD-EPI)NonAf (60.0-200.0) BUN/Creatinine Ratio (12.00-20.00) Ratio Glucose (70-110) mg/dL POC Glucose (mg/dL) (70-110) mg/dL Total Creatine Kinase 323 H (30-135) U/L CK-MB (CK-2) 3.8 H (0.0-2.4) ng/mL Troponin I 0.044 H* (0.000-0.034) ng/mL
[2022-06-14] MEDS ORDERED: IPRATROPIUM-ALBUTEROL 3 ML NEB INHALATION PRN (16:18)
[2022-06-14] MEDS ORDERED: FUROSEMIDE 10 MG/ML 4 ML VIAL IV STA (16:20)
--- NOTE | 2022-06-14 16:21 | P.CNPUL ---
History of Present Illness Consult date: 06/14/22 Reason for consult: dyspnea, hypoxemia History of present illness: 86-year-old female patient is being seen for hypoxemia following a hip surgery. The patient presented to the hospital because of a displaced right femoral fracture and the patient was taken to the operating room yesterday and the patient underwent ORIF and today she is postop day #1. Note that the patient's oxygen requirement progressively got worse. Initially she was on 2 L and currently she is on a 15 L of oxygen through a nonrebreather facemask. She does not seem to be in significant respiratory distress. The pulmonary consultation was requested accordingly. Chest x-ray showed opacification lung bases worse on the right and the patient has probably some atelectatic changes in the right lung base. An underlying effusion cannot be completely excluded. She is known to have advanced COPD and she is oxygen dependent and she lives with her son. No fever. No chills. Blood gas fro today and this was done on a FiO2 of unknown showed a pH of 7.34 with a pCO2 of 37 and pO2 of 50. I believe this was done an FiO2 of 45-50%. Her d-dimer is expectedly elevated at 3.41 following a orthopedic surgery. The white cell count from yesterday or today is at 12.5 wit h a hemoglobin of 9.8 and a platelet count of 152. The rest of the blood work shows a BUN of 34 with a creatinine of 1.6 and a sodium level of 143. The glucose at 181. Troponins are 0.0 44. UA was negative. CPK was 323. Review of Systems DEMENTIA and DEAF ROS unobtainable: due to mental status Past Medical History Past Medical History: COPD, Diabetes Mellitus, Renal Disease Additional Past Medical History / Comment(s): diabetes controlled with diet History of Any Multi-Drug Resistant Organisms: None Reported Past Surgical History: Appendectomy, Hysterectomy Additional Past Surgical History / Comment(s): gallbladder removed Past Anesthesia/Blood Transfusion Reactions: No Reported Reaction Past Psychological History: No Psychological Hx Reported Smoking Status: Current every day smoker Past Alcohol Use History: None Reported Past Drug Use History: None Reported Medications and Allergies Home Medications Medication Instructions Recorded Confirmed Type Albuterol Inhaler [Ventolin Hfa 2 puff INHALATION RT-Q4H PRN 06/12/22 06/12/22 History Inhaler] Albuterol Nebulized [Ventolin 2.5 mg INHALATION RT-QID PRN 06/12/22 06/12/22 History Nebulized] Aspirin EC [Ecotrin Low Dose] 81 mg PO DAILY 06/12/22 06/12/22 History Gabapentin [Neurontin] 100 mg PO HS 06/12/22 06/12/22 History HYDROcodone/APAP 7.5-325MG [Bridgeton 1 tab PO Q6H PRN 06/12/22 06/12/22 History 7.5-325] Levothyroxine Sodium [Synthroid] 50 mcg PO DAILY 06/12/22 06/12/22 History Ondansetron Odt [Zofran Odt] 4 mg PO Q4-6H PRN 06/12/22 06/12/22 History guaiFENesin 200 mg PO Q6H PRN 06/12/22 06/12/22 History lisinopriL [Zestril] 5 mg PO DAILY 06/12/22 06/12/22 History Enoxaparin [Lovenox] 40 mg SQ DAILY #30 each 06/14/22 Rx Sennosides-Docusate Sodium 2 tab PO HS #30 tablet 06/14/22 Rx [Senokot-S] Allergies Allergy/AdvReac Type Severity Reaction Status Date / Time No Known Allergies Allergy Verified 06/12/22 21:22 Physical Exam Vitals: Vital Signs Temp Pulse Pulse Resp BP Pulse Ox 06/14/22 14:00 99.2 F 100 16 117/60 91 L 06/14/22 13:07 96 18 06/14/22 12:56 92 18 06/14/22 07:26 94 L 06/14/22 07:24 99.7 F H 93 17 110/58 92 L 06/14/22 01:20 97.9 F 96 20 134/71 90 L 06/13/22 19:49 98.8 F 96 18 112/64 88 L 06/13/22 18:13 86 06/13/22 18:04 86 06/13/22 16:52 96 118/56 93 L 06/13/22 16:37 97 123/65 93 L 06/13/22 16:22 96 137/61 94 L Intake and Output 06/14/22 06/14/22 06/14/22 06:59 14:59 22:59 Output Total 250 Balance -250 Output: Urine 250 Other: Voiding Method Indwelling Catheter Weight 43.091 kg GENERAL: The patient is alert and oriented x3, not in any acute distress. Well developed, well nourished. The patient is currently on 100% nonrebreather facemask. The breathing is nonlabored. Head exam was generally normal. There was no scleral icterus or corneal arcus. Mucous membranes were moist. HEENT: Pupils are round and equally reacting to light. EOMI. No scleral icterus. No conjunctival pallor. Normocephalic, atraumatic. No pharyngeal erythema. No thyromegaly. CARDIOVASCULAR: S1 and S2 present. No murmurs, rubs, or gallops. PULMONARY: Coarse breath some bilaterally ABDOMEN: Soft, nontender, nondistended, normoactive bowel sounds. No palpable organomegaly. MUSCULOSKELETAL: No joint swelling or deformity. EXTREMITIES: No cyanosis, clubbing, or pedal edema. NEUROLOGICAL: Gross neurological examination did not reveal any focal deficits. SKIN: No rashes. Results - Laboratory Findings CBC and BMP: 06/14/22 05:53 06/14/22 05:53 ABG ABG pH 7.34 (7.35-7.45) L 06/14/22 12:30 ABG pCO2 37 mmHg (35-45) 06/14/22 12:30 ABG pO2 50 mmHg (83-108) L* 06/14/22 12:30 ABG O2 Saturation 84.4 % (94-97) L 06/14/22 12:30 PT/INR, D-dimer PT 10.5 sec (9.0-12.0) 06/12/22 18:20 INR 1.0 (<1.2) 06/12/22 18:20 D-Dimer 3.41 mg/L FEU (<0.60) H 06/14/22 14:51 Abnormal lab findings: Abnormal Labs 06/12/22 06/12/22 06/13/22 18:20 18:20 20:44 WBC 11.1 H RBC Hgb Hct MCV MCHC Neutrophils # 8.6 H Lymphocytes # Eosinophils # D-Dimer ABG pH ABG pO2 ABG HCO3 ABG O2 Saturation Chloride Carbon Dioxide BUN 42 H Creatinine 1.24 H Est GFR (CKD-EPI)AfAm Est GFR (CKD-EPI)NonAf BUN/Creatinine Ratio Glucose 131 H POC Glucose (mg/dL) 191 H Total Creatine Kinase CK-MB (CK-2) Troponin I 06/14/22 06/14/22 06/14/22 01:33 05:53 05:53 WBC 12.51 H RBC 3.11 L Hgb 9.8 L Hct 31.0 L MCV 99.7 H MCHC 31.6 L Neutrophils # 11.03 H Lymphocytes # 0.56 L Eosinophils # 0 L D-Dimer ABG pH ABG pO2 ABG HCO3 ABG O2 Saturation Chloride 113 H Carbon Dioxide 19.0 L BUN 34.1 H Creatinine 1.6 H Est GFR (CKD-EPI)AfAm 33.7 L Est GFR (CKD-EPI)NonAf 29.1 L BUN/Creatinine Ratio 21.18 H Glucose 181 H POC Glucose (mg/dL) 206 H Total Creatine Kinase CK-MB (CK-2) Troponin I 06/14/22 06/14/22 06/14/22 05:55 11:24 12:08 WBC RBC Hgb Hct MCV MCHC Neutrophils # Lymphocytes # Eosinophils # D-Dimer ABG pH ABG pO2 ABG HCO3 ABG O2 Saturation Chloride Carbon Dioxide BUN Creatinine Est GFR (CKD-EPI)AfAm Est GFR (CKD-EPI)NonAf BUN/Creatinine Ratio Glucose POC Glucose (mg/dL) 179 H 156 H Total Creatine Kinase 323 H CK-MB (CK-2) 3.8 H Troponin I 0.044 H* 06/14/22 06/14/22 12:30 14:51 WBC RBC Hgb Hct MCV MCHC Neutrophils # Lymphocytes # Eosinophils # D-Dimer 3.41 H ABG pH 7.34 L ABG pO2 50 L* ABG HCO3 20 L ABG O2 Saturation 84.4 L Chloride Carbon Dioxide BUN Creatinine Est GFR (CKD-EPI)AfAm Est GFR (CKD-EPI)NonAf BUN/Creatinine Ratio Glucose POC Glucose (mg/dL) Total Creatine Kinase CK-MB (CK-2) Troponin I - Diagnostic Findings Chest x-ray: image reviewed Assessment and Plan Plan: Acute on chronic hypoxic yesterday failure. Currently on 100% on rebreather facemask. There is a significant worsening in the chest x-ray finding. There is development of lower lobe atelectasis worse on the right. Consider mucus plugging as the patient has some volume loss on the right and consider underlying effusion. Pulmonary embolism is felt to be very much less likely D-dimer, nonspecific elevation secondary to orthopedic surgery and femur fracture Right femur fracture post-ORIF and the patient is postop day #2 COPD Chronic hypoxic respiratory failure Dementia Impaired hearing/deafness Chronic kidney disease stage 2-3 Diabetes mellitus Plan Keep the patient 100% on rebreather facemask Continue IV Zosyn Incentive spirometer and deep breathing Lasix 40 mg IV 1 Noncontrast CAT scan of the chest Repeat chest x-ray in the morning Continue Lovenox for DVT prophylaxis at a dose of 30 mg subcu daily Fluids to KVO Advance diet Swallow evaluation and aspiration precautions We'll follow
[2022-06-14] MEDS: IPRATROPIUM-ALBUTEROL 3 ML NEB INHALATION PRN ×2 (16:31→19:49)
[2022-06-14 16:44] LABS: Glucose,Whole Blood 137 mg/dL (70-110)
--- NOTE | 2022-06-14 18:23 | CT ---
EXAMINATION TYPE: CT chest wo con CT DLP: 164.2 mGycm, Automated exposure control for dose reduction was used. DATE OF EXAM: 06/14/2022 5:29 PM COMPARISON: Chest 06/15/2022. CLINICAL INDICATION:Female, 86 years old with history of hypoxemia, hypoxic, pre-op for hip fx TECHNIQUE: Multiple axial images were obtained through the chest. Sagittal and coronal reformats were created for review. Contrast used: none Oral contrast used: none. FINDINGS: LUNGS/ PLEURA: There is atelectasis of the left lower lobe with opacified airways. There is trace lef t pleural effusion. Consolidation changes are seen in the right lower lobe with opacified airways. AIRWAY: A few opacified airways are seen in the bilateral lower lobes left greater than right.. HEART: Heart is within normal limits for size. Moderate to severe coronary artery atherosclerosis. MEDIASTINUM: No gross evidence of adenopathy. VASCULATURE: There is ascending thoracic aorta measuring up to 4.3 cm. MUSCULOSKELETAL: No acute osseous abnormalities SOFT TISSUES/LYMPH NODES: Unremarkable. LOWER NECK: No significant findings. UPPER ABDOMEN: Scattered splenic and hepatic calcified granulomas IMPRESSION: 1. Bilateral atelectasis with complete atelectasis of the left lower lobe and partial the right lowe r lobe. Opacified airways are seen within these lobes correlate for retained secretions/aspiration. A telectasis likely represents postobstructive atelectasis. 2. Moderate severe coronary artery atherosclerosis. 3. 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
[2022-06-14 20:11] LABS: Glucose,Whole Blood 210 mg/dL (70-110)
[2022-06-14] MEDS: GABAPENTIN 100 MG CAP PO SCH (22:05)
[2022-06-14] MEDS: SENNOSIDES-DOCUSATE SODIUM 1 EACH TAB PO SCH (22:05)
[2022-06-14] MEDS: HYDROcodone/APAP 7.5-325MG 1 EACH TAB PO PRN (22:06)
[2022-06-15 06:24] LABS: Glucose,Whole Blood 145 mg/dL (70-110)
[2022-06-15] MEDS: LEVOTHYROXINE 50 MCG TAB PO SCH (07:06)
[2022-06-15] MEDS: ASPIRIN 81 MG PO SCH (07:47)
[2022-06-15] MEDS: IPRATROPIUM-ALBUTEROL 3 ML NEB INHALATION PRN ×4 (07:48→20:46)
--- NOTE | 2022-06-15 07:56 | XR ---
EXAMINATION TYPE: XR chest 1V portable DATE OF EXAM: 06/15/2022 6:55 AM COMPARISON: Chest radiographs from 06/14/2022, CT chest 06/14/2022 TECHNIQUE: XR chest 1V portable Frontal view of the chest. CLINICAL INDICATION:Female, 86 years old with history of Pneumonia, effusion; FINDINGS: Lungs/Pleura: No pneumothorax. Flattening of the hemidiaphragms with increased lucency of the upper l ungs consistent with COPD changes. Retrocardiac consolidation which improves slightly improved from p rior examination. Improved aeration of the right lower lung. Small left pleural effusion. Pulmonary vascularity: Unremarkable. Heart/mediastinum: Cardiomediastinal silhouette is stable. Ascending thoracic aortic ectasia up to 4. 2 cm. Atherosclerotic calcifications are seen in the aorta. Musculoskeletal: No acute osseous pathology. Left shoulder arthropathy. IMPRESSION: 1. Slight decrease in retrocardiac consolidation with improved aeration of the right lung. 2. Small left pleural effusion. 3. COPD changes.
[2022-06-15] MEDS: PIPERACILLIN-TAZOBACTAM 3.375 GM in SODIUM CHLORIDE 0.9% 100 ML IVPB SCH ×2 (08:16→21:14)
[2022-06-15] MEDS: ENOXAPARIN 30 MG/0.3 ML SYRINGE SQ SCH (08:17)
[2022-06-15 10:25] LABS: Basophils # (A) 0.03 X 10*3/uL (0.00-0.10); Basophils % (A) 0.3 %; Eosinophils # (A) 0 X 10*3/uL (0.04-0.35); Eosinophils % (A) 0 %; HCT 25.9 % (37.2-46.3); HGB 8.1 g/dL (12.0-15.0); Immature Grans, Automated 0.4 %; Lymphocytes # (A) 0.95 X 10*3/uL (0.90-5.00); Lymphocytes % (A) 8.4 %; MCH 30.6 pg (27.0-32.0); MCHC 31.3 g/dL (32.0-37.0); MCV 97.7 fL (80.0-97.0); Mean Platelet Volume 11.8 fL (9.5-12.2); Monocytes # (A) 0.79 X 10*3/uL (0.20-1.00); NRBC Per 100 WBC 0 /100 WBCS (0.0-0.0); Neutrophils # (A) 9.43 X 10*3/uL (1.80-7.70); Neutrophils % (A) 83.9 %; Platelet Count 145 X 10*3/uL (140-440); RBC 2.65 X 10*6/uL (4.10-5.20); RDW 14.5 % (11.5-14.5); WBC 11.25 X 10*3/uL (4.50-10.00)
[2022-06-15 10:50] LABS: African American GFR (CKD) 21.9 (60.0-200.0); Albumin 3.3 g/dL (3.8-4.9); Albumin/Globulin Ratio 1.69 (1.60-3.17); Anion Gap 12.6 mmol/L (10.00-18.00); BUN/Creat Ratio 22.52 Ratio (12.00-20.00); Blood Urea Nitrogen 51.8 mg/dL (9.0-27.0); Calcium 9.2 mg/dL (8.7-10.3); Carbon Dioxide 22.2 mmol/L (20.0-27.5); Globulin 1.9 g/dL (1.6-3.3); Non-African American GFR(CKD) 18.9 (60.0-200.0); Potassium 4.3 mmol/L (3.5-5.5); Total Bilirubin 0.3 mg/dL (0.30-1.20); Total Protein 5.2 g/dL (6.2-8.2)
[2022-06-15] MEDS: SODIUM CHLORIDE 0.9% 1,000 ML IV SCH (10:56)
--- NOTE | 2022-06-15 11:01 | P.CRDCN ---
History of Present Illness Consult date: 06/15/22 History of present illness: HISTORY OF PRESENT ILLNESS: This is a 86-year-old female with a past medical history significant for hypertension and hypothyroidism. Patient does not follow with a icu nurse. We have been asked to see the patient in consultation for abnormal troponin. Patient is admitted to the hospital secondary to a fall. She suffered a right femoral neck fracture. She underwent right hip uncemented hemiarthroplasty with orthopedics on 06/13/2022. Patient examined at the bedside. Patient is lethargic at the time of examination. She was able to open her eyes and nod her head yes or no to a few questions. She denied having any chest pain or pressure. Denied having any shortness of breath. Patient is currently on 15 L of oxygen. Blood pressure stable at 103/65. Heart rate in the 80s to 90s. * EKG reveals sinus mechanism with no signs of acute ischemia * Chest xray slight decrease in retrocardiac consolidation with improved aeration of the right lung, small left pleural effusion, COPD changes. * Laboratory data: WBC 11.25. Hemoglobin 8.1. Platelet count 145. Sodium 146. Potassium 4.3. BUN 51.8. Creatinine 2.3. * Current home cardiac medications include lisinopril 5 mg daily and aspirin 81 mg daily REVIEW OF SYSTEMS: At the time of my exam: Unable to obtain thorough review of systems secondary to altered mental status PHYSICAL EXAM: VITAL SIGNS: Reviewed. GENERAL: Well-developed in no acute distress. HEENT: Head is normocephalic. Pupils are equal, round. Sclerae anicteric. Mucous membranes of the mouth are moist. Neck supple. No JVD or thyromegaly LUNGS: Respirations even and unlabored. Lungs essentially clear to auscultation bilaterally, diminished. HEART: Regular rate and rhythm. S1 and S2 heard. ABDOMEN: Soft. Nondistended. Nontender. EXTREMITIES: Normal range of motion. No clubbing or cyanosis. Peripheral pulses intact. No lower extremity edema NEUROLOGIC: Lethargic ASSESSMENT: Fall, status post right hip fracture, status post right hip hemiarthroplasty Acute hypoxic respiratory failure requiring supplemental oxygen COPD, patient oxygen dependent at home Abnormal troponin, of unclear significance, no evidence of acute coronary syndrome Acute kidney injury History of hypertension Hypothyroidism Dementia PLAN: Obtain additional troponin level Obtain 2D echo to assess cardiac structure and function Hold Lisinopril Begin IVF at 75cc/hr Further recommendations pending patient course Nurse practitioner note has been reviewed by physician. Signing provider agrees with the documented findings, assessment, and plan of care. Past Medical History Past Medical History: COPD, Diabetes Mellitus, Renal Disease Additional Past Medical History / Comment(s): diabetes controlled with diet History of Any Multi-Drug Resistant Organisms: None Reported Past Surgical History: Appendectomy, Hysterectomy Additional Past Surgical History / Comment(s): gallbladder removed Past Anesthesia/Blood Transfusion Reactions: No Reported Reaction Past Psychological History: No Psychological Hx Reported Smoking Status: Current every day smoker Past Alcohol Use History: None Reported Past Drug Use History: None Reported Medications and Allergies Home Medications Medication Instructions Recorded Confirmed Type Albuterol Inhaler [Ventolin Hfa 2 puff INHALATION RT-Q4H PRN 06/12/22 06/12/22 History Inhaler] Albuterol Nebulized [Ventolin 2.5 mg INHALATION RT-QID PRN 06/12/22 06/12/22 History Nebulized] Aspirin EC [Ecotrin Low Dose] 81 mg PO DAILY 06/12/22 06/12/22 History Gabapentin [Neurontin] 100 mg PO HS 06/12/22 06/12/22 History HYDROcodone/APAP 7.5-325MG [[place] 1 tab PO Q6H PRN 06/12/22 06/12/22 History 7.5-325] Levothyroxine Sodium [Synthroid] 50 mcg PO DAILY 06/12/22 06/12/22 History Ondansetron Odt [Zofran Odt] 4 mg PO Q4-6H PRN 06/12/22 06/12/22 History guaiFENesin 200 mg PO Q6H PRN 06/12/22 06/12/22 History lisinopriL [Zestril] 5 mg PO DAILY 06/12/22 06/12/22 History Enoxaparin [Lovenox] 40 mg SQ DAILY #30 each 06/14/22 Rx Sennosides-Docusate Sodium 2 tab PO HS #30 tablet 06/14/22 Rx [Senokot-S] Allergies Allergy/AdvReac Type Severity Reaction Status Date / Time No Known Allergies Allergy Verified 06/12/22 21:22 Physical Exam Vitals: Vital Signs Temp Pulse Pulse Resp BP Pulse Ox FiO2 06/15/22 07:58 88 06/15/22 07:48 100 100 100 06/15/22 07:20 97.5 F L 81 16 103/65 100 06/15/22 02:00 98.7 F 85 22 90/50 96 06/14/22 22:05 85 22 06/14/22 20:01 101 H 06/14/22 19:51 99 94 L 06/14/22 19:44 99.2 F 105 H 22 111/66 94 L 06/14/22 16:44 100 06/14/22 16:32 100 06/14/22 14:00 99.2 F 100 16 117/60 91 L 06/14/22 13:07 96 18 06/14/22 12:56 92 18 Intake and Output 06/14/22 06/15/22 06/15/22 22:59 06:59 14:59 Output Total 700 1000 Balance -700 -1000 Output: Urine 700 1000 Other: Voiding Method Indwelling Catheter Results 06/15/22 06:35 06/15/22 06:35 Cardiac Enzymes 06/14/22 06/15/22 Range/Units 12:08 06:35 AST 21 (13-35) U/L CK-MB (CK-2) 3.8 H (0.0-2.4) ng/mL Troponin I 0.044 H* (0.000-0.034) ng/mL CBC 06/15/22 Range/Units 06:35 WBC 11.25 H (4.50-10.00) X 10*3/uL RBC 2.65 L (4.10-5.20) X 10*6/uL Hgb 8.1 L (12.0-15.0) g/dL Hct 25.9 L (37.2-46.3) % Plt Count 145 (140-440) X 10*3/uL Comprehensive Metabolic Panel 06/15/22 Range/Units 06:35 Sodium 146 H (135-145) mmol/L Potassium 4.3 (3.5-5.5) mmol/L Chloride 111 H (96-109) mmol/L Carbon Dioxide 22.2 (20.0-27.5) mmol/L BUN 51.8 H (9.0-27.0) mg/dL Creatinine 2.3 H (0.6-1.5) mg/dL Glucose 141 H (70-110) mg/dL Calcium 9.2 (8.7-10.3) mg/dL AST 21 (13-35) U/L ALT 9 (8-44) U/L Alkaline Phosphatase 54 (41-126) U/L Total Protein 5.2 L (6.2-8.2) g/dL Albumin 3.3 L (3.8-4.9) g/dL Current Medications Generic Name Dose Route Start Last Admin Trade Name Freq PRN Reason Stop Dose Admin Acetaminophen 650 mg 06/13/22 10:34 Acetaminophen Tab 325 Mg Tab PO Q6HR PRN Fever and/ or Pain Hydrocodone Bitart/Acetaminophen 1 each 06/12/22 22:22 06/14/22 22:06 Hydrocodone/Apap 7.5-325mg 1 Each Tab PO 1 each Q6H PRN Administration Severe Pain (Scale 7 to 10) Albuterol/Ipratropium 3 ml 06/14/22 16:18 06/15/22 07:48 Ipratropium-Albuterol 3 Ml Neb INHALATION 3 ml RT-QID PRN Administration Shortness Of Breath Or Wheezing Albuterol/Ipratropium 3 ml 06/14/22 16:18 Ipratropium-Albuterol 3 Ml Neb INHALATION RT-Q2H PRN Shortness Of Breath Or Wheezing Aspirin 81 mg 06/13/22 09:00 06/15/22 07:47 Aspirin 81 Mg PO Not Given DAILY CHANDANA Enoxaparin Sodium 30 mg 06/15/22 09:00 06/15/22 08:17 Enoxaparin 30 Mg/0.3 Ml Syringe SQ 30 mg DAILY CHANDANA Administration Gabapentin 100 mg 06/12/22 22:30 06/14/22 22:05 Gabapentin 100 Mg Cap PO 100 mg HS CHANDANA Administration Guaifenesin 200 mg 06/12/22 22:22 Guaifenesin Syrup 100mg/5ml 200 Mg/10 Ml Cup PO Q6H PRN Congestion Piperacillin Sod/Tazobactam 100 mls @ 25 mls/hr 06/14/22 11:00 06/15/22 08:16 Sod 3.375 gm/ Sodium Chloride IVPB 25 mls/hr Q12HR CHANDANA Administration Protocol Sodium Chloride 1,000 mls @ 75 mls/hr 06/15/22 09:30 Saline 0.9% IV .[id number] [facility] Levothyroxine Sodium 50 mcg 06/13/22 06:30 06/15/22 07:06 Levothyroxine 50 Mcg Tab PO Not Given DAILY@0630 [facility] Magnesium Hydroxide 2,400 mg 06/13/22 14:06 Magnesium Hydroxide 2,400 Mg/10 Ml Cup PO DAILY PRN Constipation Naloxone HCl 0.2 mg 06/12/22 20:35 Naloxone 0.4 Mg/Ml 1 Ml Vial IV Q2M PRN Opioid Reversal Ondansetron HCl 4 mg 06/12/22 22:24 06/14/22 01:31 Ondansetron 4 Mg/2 Ml Vial IVP 4 mg Q6HR PRN Administration Nausea And Vomiting Senna/Docusate Sodium 2 each 06/13/22 21:00 06/14/22 22:05 Sennosides-Docusate Sodium 1 Each Tab PO 2 each HS CHANDANA Administration Tramadol HCl 50 mg 06/13/22 10:33 Tramadol 50 Mg Tab PO QID PRN Pain/Discomfort Intake and Output 06/14/22 06/15/22 06/15/22 22:59 06:59 14:59 Output Total 700 1000 Balance -700 -1000 Output: Urine 700 1000 Other: Voiding Method Indwelling Catheter 06/15/22 06:35 06/15/22 06:35
--- NOTE | 2022-06-15 11:23 | P.PN ---
Subjective Progress Note Date: 06/15/22 Principal diagnosis: Status post right hip hemiarthroplasty This is a 86 year-old female post right hip hemiarthroplasty. This is post-op day 2. The patient was evaluated at the bedside today. The patient denies nausea, vomiting, abdominal pain, shortness of breath, and chest pain this morning. She states her pain is controlled at this time. The patient has been evaluated by pulmonary and cardiology. Objective - Vital Signs Vital signs: Vital Signs Temp 97.5 F L 06/15/22 07:20 Pulse 88 06/15/22 07:58 Resp 16 06/15/22 07:20 BP 103/65 06/15/22 07:20 Pulse Ox 100 06/15/22 07:48 FiO2 100 06/15/22 07:48 Intake & Output 06/14/22 06/15/22 06/15/22 18:59 06:59 18:59 Output Total 700 1000 Balance -700 -1000 Weight 43.091 kg Output: Urine 700 1000 Other: Voiding Method Indwelling Catheter Indwelling Catheter - Exam The patient does not appear in acute distress. Alert and orientated x3. Dressing is clean dry and intact. Incision appears fine with no erythema or active drainage. Calf is soft and nontender. Good foot and ankle motion without difficulty. Sensation and circulatory status is intact. - Labs CBC & Chem 7: 06/15/22 06:35 06/15/22 06:35 Labs: Abnormal Lab Results - Last 24 Hours (Table) 06/14/22 06/14/22 06/14/22 Range/Units 11:24 12:08 12:30 WBC (4.50-10.00) X 10*3/uL RBC (4.10-5.20) X 10*6/uL Hgb (12.0-15.0) g/dL Hct (37.2-46.3) % MCV (80.0-97.0) fL MCHC (32.0-37.0) g/dL Immature Gran # (0.00-0.04) X 10*3/uL Neutrophils # (1.80-7.70) X 10*3/uL Eosinophils # (0.04-0.35) X 10*3/uL D-Dimer (<0.60) mg/L FEU ABG pH 7.34 L (7.35-7.45) ABG pO2 50 L* (83-108) mmHg ABG HCO3 20 L (21-25) mmol/L ABG O2 Saturation 84.4 L (94-97) % Sodium (135-145) mmol/L Chloride (96-109) mmol/L BUN (9.0-27.0) mg/dL Creatinine (0.6-1.5) mg/dL Est GFR (CKD-EPI)AfAm (60.0-200.0) Est GFR (CKD-EPI)NonAf (60.0-200.0) BUN/Creatinine Ratio (12.00-20.00) Ratio Glucose (70-110) mg/dL POC Glucose (mg/dL) 156 H (70-110) mg/dL Total Creatine Kinase 323 H (30-135) U/L CK-MB (CK-2) 3.8 H (0.0-2.4) ng/mL Troponin I 0.044 H* (0.000-0.034) ng/mL Total Protein (6.2-8.2) g/dL Albumin (3.8-4.9) g/dL 06/14/22 06/14/22 06/14/22 Range/Units 14:51 16:43 20:09 WBC (4.50-10.00) X 10*3/uL RBC (4.10-5.20) X 10*6/uL Hgb (12.0-15.0) g/dL Hct (37.2-46.3) % MCV (80.0-97.0) fL MCHC (32.0-37.0) g/dL Immature Gran # (0.00-0.04) X 10*3/uL Neutrophils # (1.80-7.70) X 10*3/uL Eosinophils # (0.04-0.35) X 10*3/uL D-Dimer 3.41 H (<0.60) mg/L FEU ABG pH (7.35-7.45) ABG pO2 (83-108) mmHg ABG HCO3 (21-25) mmol/L ABG O2 Saturation (94-97) % Sodium (135-145) mmol/L Chloride (96-109) mmol/L BUN (9.0-27.0) mg/dL Creatinine (0.6-1.5) mg/dL Est GFR (CKD-EPI)AfAm (60.0-200.0) Est GFR (CKD-EPI)NonAf (60.0-200.0) BUN/Creatinine Ratio (12.00-20.00) Ratio Glucose (70-110) mg/dL POC Glucose (mg/dL) 137 H 210 H (70-110) mg/dL Total Creatine Kinase (30-135) U/L CK-MB (CK-2) (0.0-2.4) ng/mL Troponin I (0.000-0.034) ng/mL Total Protein (6.2-8.2) g/dL Albumin (3.8-4.9) g/dL 06/15/22 06/15/22 06/15/22 Range/Units 06:22 06:35 06:35 WBC 11.25 H (4.50-10.00) X 10*3/uL RBC 2.65 L (4.10-5.20) X 10*6/uL Hgb 8.1 L (12.0-15.0) g/dL Hct 25.9 L (37.2-46.3) % MCV 97.7 H (80.0-97.0) fL MCHC 31.3 L (32.0-37.0) g/dL Immature Gran # 0.05 H (0.00-0.04) X 10*3/uL Neutrophils # 9.43 H (1.80-7.70) X 10*3/uL Eosinophils # 0 L (0.04-0.35) X 10*3/uL D-Dimer (<0.60) mg/L FEU ABG pH (7.35-7.45) ABG pO2 (83-108) mmHg ABG HCO3 (21-25) mmol/L ABG O2 Saturation (94-97) % Sodium 146 H (135-145) mmol/L Chloride 111 H (96-109) mmol/L BUN 51.8 H (9.0-27.0) mg/dL Creatinine 2.3 H (0.6-1.5) mg/dL Est GFR (CKD-EPI)AfAm 21.9 L (60.0-200.0) Est GFR (CKD-EPI)NonAf 18.9 L (60.0-200.0) BUN/Creatinine Ratio 22.52 H (12.00-20.00) Ratio Glucose 141 H (70-110) mg/dL POC Glucose (mg/dL) 145 H (70-110) mg/dL Total Creatine Kinase (30-135) U/L CK-MB (CK-2) (0.0-2.4) ng/mL Troponin I (0.000-0.034) ng/mL Total Protein 5.2 L (6.2-8.2) g/dL Albumin 3.3 L (3.8-4.9) g/dL 06/15/22 Range/Units 10:09 WBC (4.50-10.00) X 10*3/uL RBC (4.10-5.20) X 10*6/uL Hgb (12.0-15.0) g/dL Hct (37.2-46.3) % MCV (80.0-97.0) fL MCHC (32.0-37.0) g/dL Immature Gran # (0.00-0.04) X 10*3/uL Neutrophils # (1.80-7.70) X 10*3/uL Eosinophils # (0.04-0.35) X 10*3/uL D-Dimer (<0.60) mg/L FEU ABG pH (7.35-7.45) ABG pO2 (83-108) mmHg ABG HCO3 (21-25) mmol/L ABG O2 Saturation (94-97) % Sodium (135-145) mmol/L Chloride (96-109) mmol/L BUN (9.0-27.0) mg/dL Creatinine (0.6-1.5) mg/dL Est GFR (CKD-EPI)AfAm (60.0-200.0) Est GFR (CKD-EPI)NonAf (60.0-200.0) BUN/Creatinine Ratio (12.00-20.00) Ratio Glucose (70-110) mg/dL POC Glucose (mg/dL) (70-110) mg/dL Total Creatine Kinase (30-135) U/L CK-MB (CK-2) (0.0-2.4) ng/mL Troponin I 0.038 H* (0.000-0.034) ng/mL Total Protein (6.2-8.2) g/dL Albumin (3.8-4.9) g/dL Assessment and Plan (1) Diabetes mellitus Current Visit: Yes Status: Acute Code(s): E11.9 - TYPE 2 DIABETES MELLITUS WITHOUT COMPLICATIONS SNOMED Code(s): 89530812 (2) Renal failure Current Visit: Yes Status: Acute Code(s): N19 - UNSPECIFIED KIDNEY FAILURE SNOMED Code(s): 73331317 (3) COPD (chronic obstructive pulmonary disease) Current Visit: Yes Status: Acute Code(s): J44.9 - CHRONIC OBSTRUCTIVE PULMONARY DISEASE, UNSPECIFIED SNOMED Code(s): 50176718 (4) Closed right hip fracture Current Visit: Yes Status: Acute Code(s): S72.001A - FRACTURE OF UNSP PART OF NECK OF RIGHT FEMUR, INIT SNOMED Code(s): 242601386 Plan: 1. Continue pain control 2. Anticoagulation with Lovenox 3. Start physical therapy and ambulation, weightbearing as tolerated with a walker. 4. Anticipate discharge to skilled rehab when medically stable.
[2022-06-15 11:30] LABS: Glucose,Whole Blood 131 mg/dL (70-110)
--- NOTE | 2022-06-15 13:32 | P.PN ---
Subjective Progress Note Date: 06/15/22 Patient is pleasant 86-year-old with moderate to severe dementia had a mechanical fall. Patient does have history of COPD with oxygen lives with the her son with frequent visits from daughter. X-rays showed a displaced right femoral fracture. Patient's EKG showed some ST depressions but patient is going for surgery today initially wanted to order an echocardiogram to see the any wall motion abnormalities patient doesn't have any history of coronary artery disease patient is bit dehydrated with the elevated creatinine of 1.24 baseline creatinine is not available bun of 42 to patient does have leukocytosis. Patient denied any chest pain or shortness of breath at this time patient is on 2 L of oxygen which she wears at home 06/14/22. Patient seen and examined. Patient oxygen requirement increased this morning, had to be placed on 15 L of oxygen via Ventimask. Does not look in any respiratory distress on exam. Denies any chest pain. Case discussed with nursing staff 06/15/22. Patient seen and examined. Currently on 6 L of oxygen via nasal cannula. Respiratory status has improved compared to yesterday. Patient continues to be lethargic. Currently waiting on speech evaluation. REVIEW OF SYSTEMS: CONSTITUTIONAL: No fever, no malaise,. CARDIOVASCULAR: No chest pain, no palpitations, no syncope. PULMONARY: no cough, GASTROINTESTINAL: No diarrhea, no nausea, no vomiting, no abdominal pain. NEUROLOGICAL: No headaches, no weakness, PHYSICAL EXAMINATION: GENERAL: The patient is alert , not in any acute distress. Well developed, well nourished. HEENT: Pupils are round and equally reacting to light. EOMI. No scleral icterus. No conjunctival pallor. Normocephalic, atraumatic. No pharyngeal erythema. No thyromegaly. CARDIOVASCULAR: S1 and S2 present. No murmurs, rubs, or gallops. PULMONARY: Coarse breath some bilaterally ABDOMEN: Soft, nontender, nondistended, normoactive bowel sounds. No palpable organomegaly. MUSCULOSKELETAL: No joint swelling or deformity. Right hip surgical scar seen NEUROLOGICAL: Gross neurological examination did not reveal any focal deficits. SKIN: No rashes. Assessment and plan Acute hypoxic respiratory failure Bacterial pneumonia Elevated troponin Status post right hip hemiarthroplasty -Leukocytosis MARIA ELENA -COPD -Hypertension hypothyroidism Plan; Continue oxygen supplementation. Aggressive bronchopulmonary hygiene Aspiration precautions Follow-up on speech ventilation. Trend troponins. 2-D echo ordered Results of chest x-ray noted, shows bilateral lower lobe infiltrate. CT chest shows the following Bilateral atelectasis with complete atelectasis of the left lower lobe and partial right lower lobe. Specified airways are seen within these lobes cor relate for retained secretions/aspiration Continue IV Zosyn. Follow-up on pulmonary recommendations follow-up with cardiology recommendations Objective - Vital Signs Vital signs: Vital Signs Temp 97.5 F L 06/15/22 07:20 Pulse 92 06/15/22 11:48 Resp 16 06/15/22 07:20 BP 103/65 06/15/22 07:20 Pulse Ox 100 06/15/22 07:48 FiO2 100 06/15/22 07:48 Intake & Output 06/14/22 06/15/22 06/15/22 18:59 06:59 18:59 Output Total 700 1000 Balance -700 -1000 Weight 43.091 kg Output: Urine 700 1000 Other: Voiding Method Indwelling Catheter Indwelling Catheter - Labs CBC & Chem 7: 06/15/22 06:35 06/15/22 06:35 Labs: Abnormal Lab Results - Last 24 Hours (Table) 06/14/22 06/14/22 06/14/22 Range/Units 14:51 16:43 20:09 WBC (4.50-10.00) X 10*3/uL RBC (4.10-5.20) X 10*6/uL Hgb (12.0-15.0) g/dL Hct (37.2-46.3) % MCV (80.0-97.0) fL MCHC (32.0-37.0) g/dL Immature Gran # (0.00-0.04) X 10*3/uL Neutrophils # (1.80-7.70) X 10*3/uL Eosinophils # (0.04-0.35) X 10*3/uL D-Dimer 3.41 H (<0.60) mg/L FEU Sodium (135-145) mmol/L Chloride (96-109) mmol/L BUN (9.0-27.0) mg/dL Creatinine (0.6-1.5) mg/dL Est GFR (CKD-EPI)AfAm (60.0-200.0) Est GFR (CKD-EPI)NonAf (60.0-200.0) BUN/Creatinine Ratio (12.00-20.00) Ratio Glucose (70-110) mg/dL POC Glucose (mg/dL) 137 H 210 H (70-110) mg/dL Troponin I (0.000-0.034) ng/mL Total Protein (6.2-8.2) g/dL Albumin (3.8-4.9) g/dL Procalcitonin (0.02-0.09) ng/mL 06/15/22 06/15/22 06/15/22 Range/Units 06:22 06:35 06:35 WBC 11.25 H (4.50-10.00) X 10*3/uL RBC 2.65 L (4.10-5.20) X 10*6/uL Hgb 8.1 L (12.0-15.0) g/dL Hct 25.9 L (37.2-46.3) % MCV 97.7 H (80.0-97.0) fL MCHC 31.3 L (32.0-37.0) g/dL Immature Gran # 0.05 H (0.00-0.04) X 10*3/uL Neutrophils # 9.43 H (1.80-7.70) X 10*3/uL Eosinophils # 0 L (0.04-0.35) X 10*3/uL D-Dimer (<0.60) mg/L FEU Sodium (135-145) mmol/L Chloride (96-109) mmol/L BUN (9.0-27.0) mg/dL Creatinine (0.6-1.5) mg/dL Est GFR (CKD-EPI)AfAm (60.0-200.0) Est GFR (CKD-EPI)NonAf (60.0-200.0) BUN/Creatinine Ratio (12.00-20.00) Ratio Glucose (70-110) mg/dL POC Glucose (mg/dL) 145 H (70-110) mg/dL Troponin I (0.000-0.034) ng/mL Total Protein (6.2-8.2) g/dL Albumin (3.8-4.9) g/dL Procalcitonin 3.75 H (0.02-0.09) ng/mL 1106/15/22 06/15/22 Range/Units 06:35 10:09 11:28 WBC (4.50-10.00) X 10*3/uL RBC (4.10-5.20) X 10*6/uL Hgb (12.0-15.0) g/dL Hct (37.2-46.3) % MCV (80.0-97.0) fL MCHC (32.0-37.0) g/dL Immature Gran # (0.00-0.04) X 10*3/uL Neutrophils # (1.80-7.70) X 10*3/uL Eosinophils # (0.04-0.35) X 10*3/uL D-Dimer (<0.60) mg/L FEU Sodium 146 H (135-145) mmol/L Chloride 111 H (96-109) mmol/L BUN 51.8 H (9.0-27.0) mg/dL Creatinine 2.3 H (0.6-1.5) mg/dL Est GFR (CKD-EPI)AfAm 21.9 L (60.0-200.0) Est GFR (CKD-EPI)NonAf 18.9 L (60.0-200.0) BUN/Creatinine Ratio 22.52 H (12.00-20.00) Ratio Glucose 141 H (70-110) mg/dL POC Glucose (mg/dL) 131 H (70-110) mg/dL Troponin I 0.038 H* (0.000-0.034) ng/mL Total Protein 5.2 L (6.2-8.2) g/dL Albumin 3.3 L (3.8-4.9) g/dL Procalcitonin (0.02-0.09) ng/mL
[2022-06-15] MEDS: traMADol 50 MG TAB PO PRN (15:22)
--- NOTE | 2022-06-15 15:37 | P.PN ---
Subjective Progress Note Date: 06/15/22 86-year-old female patient is being seen for hypoxemia following a hip surgery. The patient presented to the hospital because of a displaced right femoral fracture and the patient was taken to the operating room yesterday and the patient underwent ORIF and today she is postop day #1. Note that the patient's oxygen requirement progressively got worse. Initially she was on 2 L and currently she is on a 15 L of oxygen through a nonrebreather facemask. She does not seem to be in significant respiratory distress. The pulmonary consultation was requested accordingly. Chest x-ray showed opacification lung bases worse on the right and the patient has probably some atelectatic changes in the right brit ng base. An underlying effusion cannot be completely excluded. She is known to have advanced COPD and she is oxygen dependent and she lives with her son. No fever. No chills. Blood gas fro today and this was done on a FiO2 of unknown showed a pH of 7.34 with a pCO2 of 37 and pO2 of 50. I believe this was done an FiO2 of 45-50%. Her d-dimer is expectedly elevated at 3.41 following a orthoped ic surgery. The white cell count from yesterday or today is at 12.5 with a hemoglobin of 9.8 and a platelet count of 152. The rest of the blood work shows a BUN of 34 with a creatinine of 1.6 and a sodium level of 143. The glucose at 181. Troponins are 0.0 44. UA was negative. CPK was 323. The patient is seen today 06/15/2022 in follow-up on the regular medical floor. She is currently resting comfortably in bed. Alert in no acute distress. She did undergo ORIF of the right hip. Postoperative day #2. He is currently maintaining O2 saturations up to 100% on nonrebreather mask. She's afebrile. Hemodynamically stable. Computed tomography scan of the chest revealed bilateral atelectasis with complete atelectasis of the left lower lobe and partial right lower lobe. Opacified areas are seen within is correlate for retained secretions/aspiration. Atelectasis. Moderate severe coronary artery atherosclerosis. Today's chest x-ray reveals slight decrease in retrocardiac consolidation with improved aeration in the right lung. Small effusion. COPD changes. White count 11.2. Hemoglobin 8.1. Platelets 145. Sodium 146. Potassium 4.3. BUN 52. Creatinine 2.3. Glucose 141. Calcitonin 3.75. She is continued on DuoNeb inhalations. Lovenox for DVT prophylaxis. Antibiotics in the form of Zosyn. Attempting to work with the incentive spirometer. Objective - Vital Signs Vital signs: Vital Signs Temp 97.5 F L 06/15/22 07:20 Pulse 92 06/15/22 11:48 Resp 16 06/15/22 07:20 BP 103/65 06/15/22 07:20 Pulse Ox 100 06/15/22 07:48 FiO2 100 06/15/22 07:48 Intake & Output 06/14/22 06/15/22 06/15/22 18:59 06:59 18:59 Output Total 700 1000 Balance -700 -1000 Weight 43.091 kg Output: Urine 700 1000 Other: Voiding Method Indwelling Catheter Indwelling Catheter - Exam GENERAL: The patient is an 86-year-old female patient, alert and oriented x3, not in any acute distress. Well developed, well nourished. The patient is currently on 100% nonrebreather facemask. The breathing is nonlabored. Head exam was generally normal. There was no scleral icterus or corneal arcus. Mucous membranes were moist. HEENT: Pupils are round and equally reacting to light. EOMI. No scleral icterus. No conjunctival pallor. Normocephalic, atraumatic. No pharyngeal erythema. No thyromegaly. CARDIOVASCULAR: S1 and S2 present. No murmurs, rubs, or gallops. PULMONARY: Minimal coarse breath sounds bilaterally with faint crackles in the bases ABDOMEN: Soft, nontender, nondistended, normoactive bowel sounds. No palpable organomegaly. MUSCULOSKELETAL: No joint swelling or deformity. EXTREMITIES: No cyanosis, clubbing, or pedal edema. NEUROLOGICAL: Gross neurological examination did not reveal any focal deficits. - Labs CBC & Chem 7: 06/15/22 06:35 06/15/22 06:35 Labs: Abnormal Lab Results - Last 24 Hours (Table) 06/14/22 06/14/22 06/15/22 Range/Units 16:43 20:09 06:22 WBC (4.50-10.00) X 10*3/uL RBC (4.10-5.20) X 10*6/uL Hgb (12.0-15.0) g/dL Hct (37.2-46.3) % MCV (80.0-97.0) fL MCHC (32.0-37.0) g/dL Immature Gran # (0.00-0.04) X 10*3/uL Neutrophils # (1.80-7.70) X 10*3/uL Eosinophils # (0.04-0.35) X 10*3/uL Sodium (135-145) mmol/L Chloride (96-109) mmol/L BUN (9.0-27.0) mg/dL Creatinine (0.6-1.5) mg/dL Est GFR (CKD-EPI)AfAm (60.0-200.0) Est GFR (CKD-EPI)NonAf (60.0-200.0) BUN/Creatinine Ratio (12.00-20.00) Ratio Glucose (70-110) mg/dL POC Glucose (mg/dL) 137 H 210 H 145 H (70-110) mg/dL Troponin I (0.000-0.034) ng/mL Total Protein (6.2-8.2) g/dL Albumin (3.8-4.9) g/dL Procalcitonin (0.02-0.09) ng/mL 06/15/22 06/15/22 06/15/22 Range/Units 06:35 06:35 06:35 WBC 11.25 H (4.50-10.00) X 10*3/uL RBC 2.65 L (4.10-5.20) X 10*6/uL Hgb 8.1 L (12.0-15.0) g/dL Hct 25.9 L (37.2-46.3) % MCV 97.7 H (80.0-97.0) fL MCHC 31.3 L (32.0-37.0) g/dL Immature Gran # 0.05 H (0.00-0.04) X 10*3/uL Neutrophils # 9.43 H (1.80-7.70) X 10*3/uL Eosinophils # 0 L (0.04-0.35) X 10*3/uL Sodium 146 H (135-145) mmol/L Chloride 111 H (96-109) mmol/L BUN 51.8 H (9.0-27.0) mg/dL Creatinine 2.3 H (0.6-1.5) mg/dL Est GFR (CKD-EPI)AfAm 21.9 L (60.0-200.0) Est GFR (CKD-EPI)NonAf 18.9 L (60.0-200.0) BUN/Creatinine Ratio 22.52 H (12.00-20.00) Ratio Glucose 141 H (70-110) mg/dL POC Glucose (mg/dL) (70-110) mg/dL Troponin I (0.000-0.034) ng/mL Total Protein 5.2 L (6.2-8.2) g/dL Albumin 3.3 L (3.8-4.9) g/dL Procalcitonin 3.75 H (0.02-0.09) ng/mL 06/15/22 06/15/22 Range/Units 10:09 11:28 WBC (4.50-10.00) X 10*3/uL RBC (4.10-5.20) X 10*6/uL Hgb (12.0-15.0) g/dL Hct (37.2-46.3) % MCV (80.0-97.0) fL MCHC (32.0-37.0) g/dL Immature Gran # (0.00-0.04) X 10*3/uL Neutrophils # (1.80-7.70) X 10*3/uL Eosinophils # (0.04-0.35) X 10*3/uL Sodium (135-145) mmol/L Chloride (96-109) mmol/L BUN (9.0-27.0) mg/dL Creatinine (0.6-1.5) mg/dL Est GFR (CKD-EPI)AfAm (60.0-200.0) Est GFR (CKD-EPI)NonAf (60.0-200.0) BUN/Creatinine Ratio (12.00-20.00) Ratio Glucose (70-110) mg/dL POC Glucose (mg/dL) 131 H (70-110) mg/dL Troponin I 0.038 H* (0.000-0.034) ng/mL Total Protein (6.2-8.2) g/dL Albumin (3.8-4.9) g/dL Procalcitonin (0.02-0.09) ng/mL Assessment and Plan Assessment: Acute on chronic hypoxic respiratory failure. Patient was on 100% nonrebreather facemask and the patient is currently down to 6 L of O2 nasal cannula. There is slight improvement in the chest x-ray today. Computed tomography scan of the chest revealed bilateral atelectasis with complete atelectasis of the left lower lobe and partial of the right lower lobe. Opacified airways are seen within the slopes correlate for retained secretions/aspiration. Atelectasis likely with postobstructive atelectasis. She is continued on bronchodilators and Zosyn. Educated with the incentive spirometer D-dimer, nonspecific elevation secondary to orthopedic surgery and femur fracture Right femur fracture post-ORIF and the patient is postop day #3 COPD Chronic hypoxic respiratory failure Dementia Impaired hearing/deafness Chronic kidney disease stage 2-3 Diabetes mellitus Plan: The patient was seen and evaluated Chest x-ray, labs and medications reviewed Encourage the increased use of the incentive spirometer Titrate the FiO2 as tolerated Increase her activity as tolerated We will continue to follow I have personally seen and examined the patient, performed the documentation and the assessment and plan as written. Number of minutes spent on the visit: 10. This is a joint evaluation that was done along with the nurse practitioner. The patient is doing better. She was in the 100% on rebreather facemask and the patient has been weaned down to 6 L of oxygen by nasal cannula. The CAT scan of the chest was completed yesterday and showed some bilateral atelectatic changes in the lung bases and there was some significant atelectasis and left lower lobe and partial atelectasis of the right lower lobe. These are postsurgical changes. Underlying pneumonia is felt to be less likely although it's possible. The patient accordingly is covered with IV Zosyn. The patient is currently improving. The patient was reassured. We'll do a swallow evaluation and if the swallow evaluation that included the patient will be off her diet.
[2022-06-15 16:38] LABS: Glucose,Whole Blood 204 mg/dL (70-110)
[2022-06-15 20:02] LABS: Glucose,Whole Blood 140 mg/dL (70-110)
[2022-06-15] MEDS: GABAPENTIN 100 MG CAP PO SCH (21:14)
[2022-06-15] MEDS: SENNOSIDES-DOCUSATE SODIUM 1 EACH TAB PO SCH (21:14)
[2022-06-16] MEDS: SODIUM CHLORIDE 0.9% 1,000 ML IV SCH ×2 (01:17→08:19)
[2022-06-16 06:03] LABS: Glucose,Whole Blood 134 mg/dL (70-110)
[2022-06-16] MEDS: traMADol 50 MG TAB PO PRN ×2 (06:52→12:52)
[2022-06-16] MEDS: LEVOTHYROXINE 50 MCG TAB PO SCH (06:52)
[2022-06-16] MEDS: ASPIRIN 81 MG PO SCH (07:26)
[2022-06-16] MEDS: IPRATROPIUM-ALBUTEROL 3 ML NEB INHALATION PRN ×3 (07:37→19:48)
[2022-06-16] MEDS: ENOXAPARIN 30 MG/0.3 ML SYRINGE SQ SCH (08:18)
[2022-06-16] MEDS: PIPERACILLIN-TAZOBACTAM 3.375 GM in SODIUM CHLORIDE 0.9% 100 ML IVPB SCH ×2 (08:19→21:51)
[2022-06-16 09:24] LABS: Basophils # (A) 0.02 X 10*3/uL (0.00-0.10); Basophils % (A) 0.2 %; Eosinophils # (A) 0 X 10*3/uL (0.04-0.35); Eosinophils % (A) 0 %; HCT 27.6 % (37.2-46.3); HGB 8.6 g/dL (12.0-15.0); Immature Grans, Automated 0.4 %; Lymphocytes # (A) 0.66 X 10*3/uL (0.90-5.00); Lymphocytes % (A) 7.3 %; MCH 30.7 pg (27.0-32.0); MCHC 31.2 g/dL (32.0-37.0); MCV 98.6 fL (80.0-97.0); Mean Platelet Volume 11.5 fL (9.5-12.2); Monocytes # (A) 0.45 X 10*3/uL (0.20-1.00); NRBC Per 100 WBC 0 /100 WBCS (0.0-0.0); Neutrophils # (A) 7.85 X 10*3/uL (1.80-7.70); Neutrophils % (A) 87.1 %; Platelet Count 162 X 10*3/uL (140-440); RDW 14.4 % (11.5-14.5); WBC 9.02 X 10*3/uL (4.50-10.00)
[2022-06-16 09:38] LABS: African American GFR (CKD) 31.5 (60.0-200.0); Albumin 3.6 g/dL (3.8-4.9); Albumin/Globulin Ratio 1.57 (1.60-3.17); Anion Gap 14.6 mmol/L (10.00-18.00); BUN/Creat Ratio 30.29 Ratio (12.00-20.00); Blood Urea Nitrogen 51.5 mg/dL (9.0-27.0); Calcium 9.6 mg/dL (8.7-10.3); Carbon Dioxide 21.4 mmol/L (20.0-27.5); Globulin 2.3 g/dL (1.6-3.3); Non-African American GFR(CKD) 27.2 (60.0-200.0); Potassium 3.9 mmol/L (3.5-5.5); Total Bilirubin 0.3 mg/dL (0.30-1.20); Total Protein 5.9 g/dL (6.2-8.2)
--- NOTE | 2022-06-16 10:04 | CA ---
Transthoracic Echo Report Name: Brunilda Elizabeth Age: 86 Gender: F : 1935 Exam Date: 06/15/2022 09:21 Exam Location: [facility] Ht (in): 62 Wt (lb): 95 Ordering Physician: Pankaj Cabezas MD Attending/Referring Phys: Chair Maker Adrienne Conklin RDCS Procedure CPT: Indications: SHORTNESS OF BREATH Cardiac Hx: Technical Quality: Contrast 1: Total Dose (mL): Contrast 2: Total Dose (mL): MEASUREMENTS (Male / Female) Normal Values 2D ECHO LV Diastolic Diameter PLAX 3.2 cm 4.2 - 5.9 / 3.9 - 5.3 cm LV Systolic Diameter PLAX 1.8 cm IVS Diastolic Thickness 1.0 cm 0.6 - 1.0 / 0.6 - 0.9 cm LVPW Diastolic Thickness 1.0 cm 0.6 - 1.0 / 0.6 - 0.9 cm LV Relative Wall Thickness 0.6 RV Internal Dim ED PLAX 2.5 cm LA Volume 20.8 cm??? 18 - 58 / 22 - 52 cm??? M-MODE Aortic Root Diameter MM 3.5 cm LA Systolic Diameter MM 2.7 cm LA Ao Ratio MM 0.8 AV Cusp Separation MM 1.1 cm DOPPLER AV Peak Velocity 165.5 cm/s AV Peak Gradient 11.0 mmHg AV Mean Velocity 111.3 cm/s AV Mean Gradient 5.5 mmHg AV Velocity Time Integral 31.4 cm LVOT Peak Velocity 107.2 cm/s LVOT Peak Gradient 4.6 mmHg MV Area PHT 3.0 cm??? Mitral E Point Velocity 88.7 cm/s Mitral A Point Velocity 135.7 cm/s Mitral E to A Ratio 0.7 MV Deceleration Time 251.2 ms MV E' Velocity 4.4 cm/s Mitral E to MV E' Ratio 20.0 TR Peak Velocity 301.2 cm/s TR Peak Gradient 36.3 mmHg Right Ventricular Systolic Press 40.3 mmHg FINDINGS Left Ventricle Mildly increased left ventricular wall thickness. Normal left ventricular systolic function with no obvious regional wall motion abnormalities. Left ventricular ejection fraction is estimated at 55-60 %. Right Ventricle Normal right ventricular size and function. Mild pulmonary hypertension. Right Atrium Normal right atrial size. Left Atrium Normal left atrial size. Mitral Valve Structurally normal mitral valve. Mild mitral regurgitation. Aortic Valve No aortic valve stenosis or regurgitation. Tricuspid Valve Mild tricuspid regurgitation. Pulmonic Valve Trace pulmonic regurgitation. Pericardium No pericardial effusion. Aorta Normal size aortic root and proximal ascending aorta. CONCLUSIONS Mildly increased left ventricular wall thickness Left ventricular ejection fraction 55-60% RVSP 40 Mild mitral regurgitation Mild tricuspid regurgitation No pericardial effusion Previewed by: Dr. Nate Woodward DO (Electronically Signed) Final Date: 16 June 2022 10:03
--- NOTE | 2022-06-16 11:01 | P.PN ---
Subjective Progress Note Date: 06/16/22 HISTORY OF PRESENT ILLNESS: This is a 86-year-old female with a past medical history significant for hypertension and hypothyroidism. Patient does not follow with a senior fire protection engineer. We have been asked to see the patient in consultation for abnormal troponin. Patient is admitted to the hospital secondary to a fall. She suffered a right femoral neck fracture. She underwent right hip uncemented hemiarthroplasty with orthopedics on 06/13/2022. Patient examined at the bedside. Patient is lethargic at the time of examination. She was able to open her eyes and nod her head yes or no to a few questions. She denied having any chest pain or pressure. Denied having any shortness of breath. Patient is currently on 15 L of oxygen. Blood pressure stable at 103/65. Heart rate in the 80s to 90s. * EKG reveals sinus mechanism with no signs of acute ischemia * Chest xray slight decrease in retrocardiac consolidation with improved aeration of the right lung, small left pleural effusion, COPD changes. * Laboratory data: WBC 11.25. Hemoglobin 8.1. Platelet count 145. Sodium 146. Potassium 4.3. BUN 51.8. Creatinine 2.3. * Current home cardiac medications include lisinopril 5 mg daily and aspirin 81 mg daily 06/16/2022 Patient examined this morning at bedside. Patient is more awake today in comparison to yesterday. She denies chest pain or pressure. She denies shortness of breath. She is currently nothing by mouth and is scheduled for modified barium swallow. Echocardiogram completed revealing ejection fraction 55-60%, mild MR, mild TR. Vital signs are stable. Creatinine today 1.7. PHYSICAL EXAM: VITAL SIGNS: Reviewed. GENERAL: Well-developed in no acute distress. HEENT: Head is normocephalic. Pupils are equal, round. Sclerae anicteric. Mucous membranes of the mouth are moist. Neck supple. No JVD or thyromegaly LUNGS: Respirations even and unlabored. Lungs essentially clear to auscultation bilaterally, diminished. HEART: Regular rate and rhythm. S1 and S2 heard. ABDOMEN: Soft. Nondistended. Nontender. EXTREMITIES: Normal range of motion. No clubbing or cyanosis. Peripheral pulses intact. No lower extremity edema NEUROLOGIC: Lethargic ASSESSMENT: Fall, status post right hip fracture, status post right hip hemiarthroplasty Acute hypoxic respiratory failure requiring supplemental oxygen COPD, patient oxygen dependent at home Abnormal troponin, of unclear significance, no evidence of acute coronary syndrome Acute kidney injury History of hypertension Hypothyroidism Dementia PLAN: Continue to hold lisinopril secondary to acute kidney injury Continue gentle IV fluid hydration Patient is currently stable from a cardiac standpoint with no further inpatient cardiac recommendations We will sign off. Please reconsult if needed. Nurse practitioner note has been reviewed by physician. Signing provider agrees with the documented findings, assessment, and plan of care. Objective - Vital Signs Vital signs: Vital Signs Temp 98.5 F 06/16/22 08:00 Pulse 87 06/16/22 08:00 Resp 21 06/16/22 02:00 BP 138/68 06/16/22 08:00 Pulse Ox 97 06/16/22 08:00 FiO2 100 06/15/22 07:48 Intake & Output 06/15/22 06/16/22 06/16/22 18:59 06:59 18:59 Output Total 400 Balance -400 Output: Urine 400 Other: Voiding Method Diaper Diaper Incontinent Incontinent # Voids 1 - Labs CBC & Chem 7: 06/16/22 06:16 06/16/22 06:16 Labs: Abnormal Lab Results - Last 24 Hours (Table) 06/15/22 06/15/22 06/15/22 Range/Units 06:35 10:09 11:28 RBC (4.10-5.20) X 10*6/uL Hgb (12.0-15.0) g/dL Hct (37.2-46.3) % MCV (80.0-97.0) fL MCHC (32.0-37.0) g/dL Neutrophils # (1.80-7.70) X 10*3/uL Lymphocytes # (0.90-5.00) X 10*3/uL Eosinophils # (0.04-0.35) X 10*3/uL Sodium (135-145) mmol/L Chloride (96-109) mmol/L BUN (9.0-27.0) mg/dL Creatinine (0.6-1.5) mg/dL Est GFR (CKD-EPI)AfAm (60.0-200.0) Est GFR (CKD-EPI)NonAf (60.0-200.0) BUN/Creatinine Ratio (12.00-20.00) Ratio Glucose (70-110) mg/dL POC Glucose (mg/dL) 131 H (70-110) mg/dL Troponin I 0.038 H* (0.000-0.034) ng/mL Total Protein (6.2-8.2) g/dL Albumin (3.8-4.9) g/dL Albumin/Globulin Ratio (1.60-3.17) g/dL Procalcitonin 3.75 H (0.02-0.09) ng/mL 06/15/22 06/15/22 06/16/22 Range/Units 16:36 20:01 06:01 RBC (4.10-5.20) X 10*6/uL Hgb (12.0-15.0) g/dL Hct (37.2-46.3) % MCV (80.0-97.0) fL MCHC (32.0-37.0) g/dL Neutrophils # (1.80-7.70) X 10*3/uL Lymphocytes # (0.90-5.00) X 10*3/uL Eosinophils # (0.04-0.35) X 10*3/uL Sodium (135-145) mmol/L Chloride (96-109) mmol/L BUN (9.0-27.0) mg/dL Creatinine (0.6-1.5) mg/dL Est GFR (CKD-EPI)AfAm (60.0-200.0) Est GFR (CKD-EPI)NonAf (60.0-200.0) BUN/Creatinine Ratio (12.00-20.00) Ratio Glucose (70-110) mg/dL POC Glucose (mg/dL) 204 H 140 H 134 H (70-110) mg/dL Troponin I (0.000-0.034) ng/mL Total Protein (6.2-8.2) g/dL Albumin (3.8-4.9) g/dL Albumin/Globulin Ratio (1.60-3.17) g/dL Procalcitonin (0.02-0.09) ng/mL 06/16/22 06/16/22 Range/Units 06:16 06:16 RBC 2.80 L (4.10-5.20) X 10*6/uL Hgb 8.6 L (12.0-15.0) g/dL Hct 27.6 L (37.2-46.3) % MCV 98.6 H (80.0-97.0) fL MCHC 31.2 L (32.0-37.0) g/dL Neutrophils # 7.85 H (1.80-7.70) X 10*3/uL Lymphocytes # 0.66 L (0.90-5.00) X 10*3/uL Eosinophils # 0 L (0.04-0.35) X 10*3/uL Sodium 151 H (135-145) mmol/L Chloride 115 H (96-109) mmol/L BUN 51.5 H (9.0-27.0) mg/dL Creatinine 1.7 H (0.6-1.5) mg/dL Est GFR (CKD-EPI)AfAm 31.5 L (60.0-200.0) Est GFR (CKD-EPI)NonAf 27.2 L (60.0-200.0) BUN/Creatinine Ratio 30.29 H (12.00-20.00) Ratio Glucose 129 H (70-110) mg/dL POC Glucose (mg/dL) (70-110) mg/dL Troponin I (0.000-0.034) ng/mL Total Protein 5.9 L (6.2-8.2) g/dL Albumin 3.6 L (3.8-4.9) g/dL Albumin/Globulin Ratio 1.57 L (1.60-3.17) g/dL Procalcitonin (0.02-0.09) ng/mL
--- NOTE | 2022-06-16 11:38 | FL ---
Modified barium swallow. HISTORY: Dysphagia. Modified barium swallow was performed with the department of speech pathology. The patient was prese nted with various consistencies of barium. There is no evidence for aspiration or penetration. Full report is to follow from the department of speech pathology. Impression: Normal study.
[2022-06-16 11:52] LABS: Glucose,Whole Blood 110 mg/dL (70-110)
--- NOTE | 2022-06-16 13:10 | P.PN ---
Subjective Progress Note Date: 06/16/22 Patient is pleasant 86-year-old with moderate to severe dementia had a mechanical fall. Patient does have history of COPD with oxygen lives with the her son with frequent visits from daughter. X-rays showed a displaced right femoral fracture. Patient's EKG showed some ST depressions but patient is going for surgery today initially wanted to order an echocardiogram to see the any wall motion abnormalities patient doesn't have any history of coronary artery disease patient is bit dehydrated with the elevated creatinine of 1.24 baseline creatinine is not available bun of 42 to patient does have leukocytosis. Patient denied any chest pain or shortness of breath at this time patient is on 2 L of oxygen which she wears at home 06/14/22. Patient seen and examined. Patient oxygen requirement increased this morning, had to be placed on 15 L of oxygen via Ventimask. Does not look in any respiratory distress on exam. Denies any chest pain. Case discussed with nursing staff 06/15/22. Patient seen and examined. Currently on 6 L of oxygen via nasal cannula. Respiratory status has improved compared to yesterday. Patient continues to be lethargic. Currently waiting on speech evaluation. 06/16. Patient seen and examined. Currently sitting upright in the bed. Going for swallow study today. Respiratory status has improved compared to yesterday REVIEW OF SYSTEMS: CONSTITUTIONAL: No fever, no malaise,. CARDIOVASCULAR: No chest pain, no palpitations, no syncope. PULMONARY: no cough, GASTROINTESTINAL: No diarrhea, no nausea, no vomiting, no abdominal pain. NEUROLOGICAL: No headaches, no weakness, PHYSICAL EXAMINATION: GENERAL: The patient is alert , not in any acute distress. Well developed, well nourished. HEENT: Pupils are round and equally reacting to light. EOMI. No scleral icterus. No conjunctival pallor. Normocephalic, atraumatic. No pharyngeal erythema. No thyromegaly. CARDIOVASCULAR: S1 and S2 present. No murmurs, rubs, or gallops. PULMONARY: Coarse breath some bilaterally ABDOMEN: Soft, nontender, nondistended, normoactive bowel sounds. No palpable organomegaly. MUSCULOSKELETAL: No joint swelling or deformity. Right hip surgical scar seen NEUROLOGICAL: Gross neurological examination did not reveal any focal deficits. SKIN: No rashes. Assessment and plan Acute hypoxic respiratory failure Bacterial pneumonia Elevated troponin Status post right hip hemiarthroplasty -Leukocytosis MARIA ELENA -COPD -Hypertension hypothyroidism Plan; Continue oxygen supplementation. Aggressive bronchopulmonary hygiene Aspiration precautions Follow-up on speech study Follow-up on 2-D echo Results of chest x-ray noted, shows bilateral lower lobe infiltrate. CT chest shows the following Bilateral atelectasis with complete atelectasis of the left lower lobe and partial right lower lobe. Specified airways are seen within these lobes correlate for retained secretions/aspiration Continue IV Zosyn. Follow-up on pulmonary recommendations follow-up with cardiology recommendations Objective - Vital Signs Vital signs: Vital Signs Temp 98.5 F 06/16/22 08:00 Pulse 87 06/16/22 08:00 Resp 21 06/16/22 02:00 BP 138/68 06/16/22 08:00 Pulse Ox 97 06/16/22 08:00 FiO2 100 06/15/22 07:48 Intake & Output 06/15/22 06/16/22 06/16/22 18:59 06:59 18:59 Output Total 400 Balance -400 Output: Urine 400 Other: Voiding Method Diaper Diaper Incontinent Incontinent # Voids 1 - Labs CBC & Chem 7: 06/16/22 06:16 06/16/22 06:16 Labs: Abnormal Lab Results - Last 24 Hours (Table) 06/15/22 06/15/22 06/16/22 Range/Units 16:36 20:01 06:01 RBC (4.10-5.20) X 10*6/uL Hgb (12.0-15.0) g/dL Hct (37.2-46.3) % MCV (80.0-97.0) fL MCHC (32.0-37.0) g/dL Neutrophils # (1.80-7.70) X 10*3/uL Lymphocytes # (0.90-5.00) X 10*3/uL Eosinophils # (0.04-0.35) X 10*3/uL Sodium (135-145) mmol/L Chloride (96-109) mmol/L BUN (9.0-27.0) mg/dL Creatinine (0.6-1.5) mg/dL Est GFR (CKD-EPI)AfAm (60.0-200.0) Est GFR (CKD-EPI)NonAf (60.0-200.0) BUN/Creatinine Ratio (12.00-20.00) Ratio Glucose (70-110) mg/dL POC Glucose (mg/dL) 204 H 140 H 134 H (70-110) mg/dL Total Protein (6.2-8.2) g/dL Albumin (3.8-4.9) g/dL Albumin/Globulin Ratio (1.60-3.17) g/dL 06/16/22 06/16/22 Range/Units 06:16 06:16 RBC 2.80 L (4.10-5.20) X 10*6/uL Hgb 8.6 L (12.0-15.0) g/dL Hct 27.6 L (37.2-46.3) % MCV 98.6 H (80.0-97.0) fL MCHC 31.2 L (32.0-37.0) g/dL Neutrophils # 7.85 H (1.80-7.70) X 10*3/uL Lymphocytes # 0.66 L (0.90-5.00) X 10*3/uL Eosinophils # 0 L (0.04-0.35) X 10*3/uL Sodium 151 H (135-145) mmol/L Chloride 115 H (96-109) mmol/L BUN 51.5 H (9.0-27.0) mg/dL Creatinine 1.7 H (0.6-1.5) mg/dL Est GFR (CKD-EPI)AfAm 31.5 L (60.0-200.0) Est GFR (CKD-EPI)NonAf 27.2 L (60.0-200.0) BUN/Creatinine Ratio 30.29 H (12.00-20.00) Ratio Glucose 129 H (70-110) mg/dL POC Glucose (mg/dL) (70-110) mg/dL Total Protein 5.9 L (6.2-8.2) g/dL Albumin 3.6 L (3.8-4.9) g/dL Albumin/Globulin Ratio 1.57 L (1.60-3.17) g/dL
--- NOTE | 2022-06-16 16:00 | P.PN ---
Subjective Progress Note Date: 06/16/22 86-year-old female patient is being seen for hypoxemia following a hip surgery. The patient presented to the hospital because of a displaced right femoral fracture and the patient was taken to the operating room yesterday and the patient underwent ORIF and today she is postop day #1. Note that the patient's oxygen requirement progressively got worse. Initially she was on 2 L and currently she is on a 15 L of oxygen through a nonrebreather facemask. She does not seem to be in significant respiratory distress. The pulmonary consultation was requested accordingly. Chest x-ray showed opacification lung bases worse on the right and the patient has probably some atelectatic changes in the right brit ng base. An underlying effusion cannot be completely excluded. She is known to have advanced COPD and she is oxygen dependent and she lives with her son. No fever. No chills. Blood gas fro today and this was done on a FiO2 of unknown showed a pH of 7.34 with a pCO2 of 37 and pO2 of 50. I believe this was done an FiO2 of 45-50%. Her d-dimer is expectedly elevated at 3.41 following a orthoped ic surgery. The white cell count from yesterday or today is at 12.5 with a hemoglobin of 9.8 and a platelet count of 152. The rest of the blood work shows a BUN of 34 with a creatinine of 1.6 and a sodium level of 143. The glucose at 181. Troponins are 0.0 44. UA was negative. CPK was 323. The patient is seen today 06/15/2022 in follow-up on the regular medical floor. She is currently resting comfortably in bed. Alert in no acute distress. She did undergo ORIF of the right hip. Postoperative day #2. He is currently maintaining O2 saturations up to 100% on nonrebreather mask. She's afebrile. Hemodynamically stable. Computed tomography scan of the chest revealed bilateral atelectasis with complete atelectasis of the left lower lobe and partial right lower lobe. Opacified areas are seen within is correlate for retained secretions/aspiration. Atelectasis. Moderate severe coronary artery atherosclerosis. Today's chest x-ray reveals slight decrease in retrocardiac consolidation with improved aeration in the right lung. Small effusion. COPD changes. White count 11.2. Hemoglobin 8.1. Platelets 145. Sodium 146. Potassium 4.3. BUN 52. Creatinine 2.3. Glucose 141. Calcitonin 3.75. She is continued on DuoNeb inhalations. Lovenox for DVT prophylaxis. Antibiotics in the form of Zosyn. Attempting to work with the incentive spirometer. The patient is seen today 06/16/2022 in follow-up on the regular medical floor. She is currently sitting up in bed. Awake and alert in no acute distress. Denies any worsening shortness of breath, cough or congestion. Currently maintaining O2 saturations in the mid 90s on 4 L/m per nasal cannula. She did undergo a barium swallow which revealed a normal study. No evidence of aspiration or penetration. White count 9.0. Hemoglobin 8.6. Platelets 162. Sodium 151. Potassium 3.9. BUN 52. Creatinine 1.7. Glucose 129. She is currently on normal saline at 75 ML's per hour. She remains on DuoNeb inhalations, Robitussin, antibiotics in the form of Zosyn. Objective - Vital Signs Vital signs: Vital Signs Temp 98.2 F 06/16/22 14:00 Pulse 95 06/16/22 14:00 Resp 18 06/16/22 14:00 BP 124/72 06/16/22 14:00 Pulse Ox 95 06/16/22 14:00 FiO2 100 06/15/22 07:48 Intake & Output 06/15/22 06/16/22 06/16/22 18:59 06:59 18:59 Output Total 400 Balance -400 Weight 43.091 kg Output: Urine 400 Other: Voiding Method Diaper Diaper Incontinent Incontinent # Voids 1 - Exam GENERAL: The patient is a very [id number] female patient, alert and or iented x3, not in any acute distress. The patient is currently on 4 L/m per nasal cannula. The breathing is nonlabored. Head exam was generally normal. There was no scleral icterus or corneal arcus. Mucous membranes were moist. Edentulous HEENT: Pupils are round and equally reacting to light. EOMI. No scleral icterus. No conjunctival pallor. Normocephalic, atraumatic. No pharyngeal erythema. No t hyromegaly. CARDIOVASCULAR: S1 and S2 present. No murmurs, rubs, or gallops. PULMONARY: Minimal coarse breath sounds bilaterally with faint crackles in the bases ABDOMEN: Soft, nontender, nondistended, normoactive bowel sounds. No palpable organomegaly. MUSCULOSKELETAL: No joint swelling or deformity. EXTREMITIES: No cyanosis, clubbing, or pedal edema. NEUROLOGICAL: Gross neurological examination did not reveal any focal deficits. - Labs CBC & Chem 7: 06/16/22 06:16 06/16/22 06:16 Labs: Abnormal Lab Results - Last 24 Hours (Table) 06/15/22 06/15/22 06/16/22 Range/Units 16:36 20:01 06:01 RBC (4.10-5.20) X 10*6/uL Hgb (12.0-15.0) g/dL Hct (37.2-46.3) % MCV (80.0-97.0) fL MCHC (32.0-37.0) g/dL Neutrophils # (1.80-7.70) X 10*3/uL Lymphocytes # (0.90-5.00) X 10*3/uL Eosinophils # (0.04-0.35) X 10*3/uL Sodium (135-145) mmol/L Chloride (96-109) mmol/L BUN (9.0-27.0) mg/dL Creatinine (0.6-1.5) mg/dL Est GFR (CKD-EPI)AfAm (60.0-200.0) Est GFR (CKD-EPI)NonAf (60.0-200.0) BUN/Creatinine Ratio (12.00-20.00) Ratio Glucose (70-110) mg/dL POC Glucose (mg/dL) 204 H 140 H 134 H (70-110) mg/dL Total Protein (6.2-8.2) g/dL Albumin (3.8-4.9) g/dL Albumin/Globulin Ratio (1.60-3.17) g/dL 06/16/22 06/16/22 Range/Units 06:16 06:16 RBC 2.80 L (4.10-5.20) X 10*6/uL Hgb 8.6 L (12.0-15.0) g/dL Hct 27.6 L (37.2-46.3) % MCV 98.6 H (80.0-97.0) fL MCHC 31.2 L (32.0-37.0) g/dL Neutrophils # 7.85 H (1.80-7.70) X 10*3/uL Lymphocytes # 0.66 L (0.90-5.00) X 10*3/uL Eosinophils # 0 L (0.04-0.35) X 10*3/uL Sodium 151 H (135-145) mmol/L Chloride 115 H (96-109) mmol/L BUN 51.5 H (9.0-27.0) mg/dL Creatinine 1.7 H (0.6-1.5) mg/dL Est GFR (CKD-EPI)AfAm 31.5 L (60.0-200.0) Est GFR (CKD-EPI)NonAf 27.2 L (60.0-200.0) BUN/Creatinine Ratio 30.29 H (12.00-20.00) Ratio Glucose 129 H (70-110) mg/dL POC Glucose (mg/dL) (70-110) mg/dL Total Protein 5.9 L (6.2-8.2) g/dL Albumin 3.6 L (3.8-4.9) g/dL Albumin/Globulin Ratio 1.57 L (1.60-3.17) g/dL Assessment and Plan Assessment: Acute on chronic hypoxic respiratory failure. Currently on 4 liters nasal cannul. There is slight improvement in the chest x-ray. Computed tomography scan of the chest revealed bilateral atelectasis with complete atelectasis of the left lower lobe and partial of the right lower lobe. Opacified airways are seen within the slopes correlate for retained secretions/aspiration. Atelectasis likely with postobstructive atelectasis. She is continued on bronchodilators and Zosyn. Educated with the incentive spirometer. D-dimer, nonspecific elevation secondary to orthopedic surgery and femur fracture Right femur fracture post-ORIF and the patient is postop day #4 Hypernatremia, currently 151 COPD Chronic hypoxic respiratory failure Dementia Impaired hearing/deafness Chronic kidney disease stage 2-3 Diabetes mellitus Plan: The patient was seen and evaluated Labs and medications reviewed Discontinue saline infusion Tolerating a diet Encourage the increased use of the incentive spirometer Titrate the FiO2 as tolerated Follow-up chest x-ray in a.m. Increase her activity as tolerated We will continue to follow I have personally seen and examined the patient, performed the documentation and the assessment and plan as written. Number of minutes spent on the visit: 10. Evaluation that was done along with the nurse practitioner. I agree on the above-mentioned plan. The patient was seen in conjunction with the WEEKEND RECEPTIONIST. This evaluation was done in more than 20 minutes.
[2022-06-16 16:43] LABS: Glucose,Whole Blood 174 mg/dL (70-110)
--- NOTE | 2022-06-16 16:57 | P.PN ---
Subjective Progress Note Date: 06/16/22 Principal diagnosis: Status post right hip hemiarthroplasty This is a 86 year-old female post right hip hemiarthroplasty. This is post-op day 3. The patient was evaluated at the bedside today. She states her pain is controlled at this time. The patient has been evaluated by pulmonary and cardiology and she is much more alert today than yesterday. She is very hard of hearing. Objective - Vital Signs Vital signs: Vital Signs Temp 98.2 F 06/16/22 14:00 Pulse 92 06/16/22 16:10 Resp 18 06/16/22 14:00 BP 124/72 06/16/22 14:00 Pulse Ox 95 06/16/22 14:00 FiO2 100 06/15/22 07:48 Intake & Output 06/15/22 06/16/22 06/16/22 18:59 06:59 18:59 Output Total 400 Balance -400 Weight 43.091 kg Output: Urine 400 Other: Voiding Method Diaper Diaper Incontinent Incontinent # Voids 1 1 - Exam The patient does not appear in acute distress. Alert and orientated x3. Dressing is clean dry and intact. Incision appears fine with no erythema or active drainage. Calf is soft and nontender. Good foot and ankle motion without difficulty. Sensation and circulatory status is intact. - Labs CBC & Chem 7: 06/16/22 06:16 06/16/22 06:16 Labs: Abnormal Lab Results - Last 24 Hours (Table) 06/15/22 06/16/22 06/16/22 Range/Units 20:01 06:01 06:16 RBC 2.80 L (4.10-5.20) X 10*6/uL Hgb 8.6 L (12.0-15.0) g/dL Hct 27.6 L (37.2-46.3) % MCV 98.6 H (80.0-97.0) fL MCHC 31.2 L (32.0-37.0) g/dL Neutrophils # 7.85 H (1.80-7.70) X 10*3/uL Lymphocytes # 0.66 L (0.90-5.00) X 10*3/uL Eosinophils # 0 L (0.04-0.35) X 10*3/uL Sodium (135-145) mmol/L Chloride (96-109) mmol/L BUN (9.0-27.0) mg/dL Creatinine (0.6-1.5) mg/dL Est GFR (CKD-EPI)AfAm (60.0-200.0) Est GFR (CKD-EPI)NonAf (60.0-200.0) BUN/Creatinine Ratio (12.00-20.00) Ratio Glucose (70-110) mg/dL POC Glucose (mg/dL) 140 H 134 H (70-110) mg/dL Total Protein (6.2-8.2) g/dL Albumin (3.8-4.9) g/dL Albumin/Globulin Ratio (1.60-3.17) g/dL 06/16/22 06/16/22 Range/Units 06:16 16:41 RBC (4.10-5.20) X 10*6/uL Hgb (12.0-15.0) g/dL Hct (37.2-46.3) % MCV (80.0-97.0) fL MCHC (32.0-37.0) g/dL Neutrophils # (1.80-7.70) X 10*3/uL Lymphocytes # (0.90-5.00) X 10*3/uL Eosinophils # (0.04-0.35) X 10*3/uL Sodium 151 H (135-145) mmol/L Chloride 115 H (96-109) mmol/L BUN 51.5 H (9.0-27.0) mg/dL Creatinine 1.7 H (0.6-1.5) mg/dL Est GFR (CKD-EPI)AfAm 31.5 L (60.0-200.0) Est GFR (CKD-EPI)NonAf 27.2 L (60.0-200.0) BUN/Creatinine Ratio 30.29 H (12.00-20.00) Ratio Glucose 129 H (70-110) mg/dL POC Glucose (mg/dL) 174 H (70-110) mg/dL Total Protein 5.9 L (6.2-8.2) g/dL Albumin 3.6 L (3.8-4.9) g/dL Albumin/Globulin Ratio 1.57 L (1.60-3.17) g/dL Assessment and Plan (1) Diabetes mellitus Current Visit: Yes Status: Acute Code(s): E11.9 - TYPE 2 DIABETES MELLITUS WITHOUT COMPLICATIONS SNOMED Code(s): 05907740 (2) Renal failure Current Visit: Yes Status: Acute Code(s): N19 - UNSPECIFIED KIDNEY FAILURE SNOMED Code(s): 01543557 (3) COPD (chronic obstructive pulmonary disease) Current Visit: Yes Status: Acute Code(s): J44.9 - CHRONIC OBSTRUCTIVE PULMONARY DISEASE, UNSPECIFIED SNOMED Code(s): 55577185 (4) Closed right hip fracture Current Visit: Yes Status: Acute Code(s): S72.001A - FRACTURE OF UNSP PART OF NECK OF RIGHT FEMUR, INIT SNOMED Code(s): 443326571 Plan: 1. Continue pain control 2. Anticoagulation with Lovenox 3. Start physical therapy and ambulation, weightbearing as tolerated with a walker. 4. Anticipate discharge to skilled rehab when medically stable, likely to [facility] on Tuesday.
[2022-06-16 21:04] LABS: Glucose,Whole Blood 168 mg/dL (70-110)
[2022-06-16] MEDS: SENNOSIDES-DOCUSATE SODIUM 1 EACH TAB PO SCH (21:51)
[2022-06-16] MEDS: GABAPENTIN 100 MG CAP PO SCH (21:51)
[2022-06-17 05:55] LABS: Glucose,Whole Blood 121 mg/dL (70-110)
[2022-06-17] MEDS: LEVOTHYROXINE 50 MCG TAB PO SCH (06:54)
[2022-06-17] MEDS: traMADol 50 MG TAB PO PRN (06:54)
[2022-06-17] MEDS: SODIUM CHLORIDE 0.9% 1,000 ML IV SCH ×2 (06:56→16:39)
--- NOTE | 2022-06-17 08:01 | XR ---
EXAMINATION TYPE: XR chest 1V portable DATE OF EXAM: 06/17/2022 COMPARISON: 06/15/2026 HISTORY: Shortness of breath TECHNIQUE: Single frontal view of the chest is obtained. FINDINGS: There is hyperinflation lungs and flattening the diaphragms consistent with COPD. There are diffuse prominent interstitial markings unchanged compared to previous likely representing chronic interstitial changes. The dense airspace opacity in the retrocardiac on the prior study has i mproved in the interval and is smaller in size. The findings suggest possibility of resolving pneumon ia or atelectasis. The is no pneumothorax. Small left pleural effusions not excluded. The heart size is normal. IMPRESSION: Decreasing retrocardiac opacity as described above. Probable chronic interstitial change s and COPD.
[2022-06-17] MEDS: IPRATROPIUM-ALBUTEROL 3 ML NEB INHALATION PRN ×3 (08:42→20:13)
[2022-06-17 08:47] LABS: Basophils # (A) 0.02 X 10*3/uL (0.00-0.10); Basophils % (A) 0.3 %; Eosinophils # (A) 0.06 X 10*3/uL (0.04-0.35); Eosinophils % (A) 0.8 %; HCT 24.7 % (37.2-46.3); HGB 7.8 g/dL (12.0-15.0); Immature Grans, Automated 0.7 %; Lymphocytes # (A) 1.05 X 10*3/uL (0.90-5.00); Lymphocytes % (A) 14.5 %; MCH 31.2 pg (27.0-32.0); MCHC 31.6 g/dL (32.0-37.0); MCV 98.8 fL (80.0-97.0); Mean Platelet Volume 11.8 fL (9.5-12.2); Monocytes # (A) 0.48 X 10*3/uL (0.20-1.00); Monocytes % (A) 6.6 %; NRBC Per 100 WBC 0 /100 WBCS (0.0-0.0); Neutrophils # (A) 5.58 X 10*3/uL (1.80-7.70); Neutrophils % (A) 77.1 %; Platelet Count 165 X 10*3/uL (140-440); RDW 14.6 % (11.5-14.5); WBC 7.24 X 10*3/uL (4.50-10.00)
[2022-06-17] MEDS: ASPIRIN 81 MG PO SCH (09:01)
[2022-06-17] MEDS: PIPERACILLIN-TAZOBACTAM 3.375 GM in SODIUM CHLORIDE 0.9% 100 ML IVPB SCH ×2 (09:01→21:23)
[2022-06-17] MEDS: ENOXAPARIN 30 MG/0.3 ML SYRINGE SQ SCH (09:01)
[2022-06-17 10:08] LABS: African American GFR (CKD) 33.9 (60.0-200.0); Albumin 3.3 g/dL (3.8-4.9); Albumin/Globulin Ratio 1.38 (1.60-3.17); Anion Gap 13.4 mmol/L (10.00-18.00); BUN/Creat Ratio 32.06 Ratio (12.00-20.00); Blood Urea Nitrogen 51.3 mg/dL (9.0-27.0); Calcium 9.4 mg/dL (8.7-10.3); Carbon Dioxide 21.6 mmol/L (20.0-27.5); Globulin 2.4 g/dL (1.6-3.3); Non-African American GFR(CKD) 29.3 (60.0-200.0); Potassium 3.7 mmol/L (3.5-5.5); Total Bilirubin 0.3 mg/dL (0.30-1.20); Total Protein 5.7 g/dL (6.2-8.2)
--- NOTE | 2022-06-17 11:30 | P.PN ---
Subjective Progress Note Date: 06/17/22 Principal diagnosis: Right hip hemiarthroplasty Patient is seen at bedside this morning. He is postop day #4 from right hip hemiarthroplasty. She has minimal pain at the surgical site as expected and denies any new complaints. She denies numbness, tingling or calf pain. Review of systems is negative for fever, chills, chest pain, shortness of breath or other Objective - Vital Signs Vital signs: Vital Signs Temp 98.3 F 06/17/22 08:00 Pulse 89 06/17/22 08:51 Resp 17 06/17/22 01:17 BP 148/72 06/17/22 08:00 Pulse Ox 99 06/17/22 08:00 FiO2 100 06/15/22 07:48 Intake & Output 06/16/22 06/17/22 06/17/22 18:59 06:59 18:59 Weight 43.091 kg Other: Voiding Method Diaper Diaper Incontinent Incontinent External Catheter # Voids 1 3 - Exam Inspection reveals a benign surgical wound. There is no active bleeding or d rainage. Neurovascular status is intact throughout the lower extremity with motor and sensation fully intact. Calf is soft and nontender. 2+ dorsalis pedis pulse and less than 2 second cap refill is present. - Constitutional General appearance: Present: no acute distress - Labs CBC & Chem 7: 06/17/22 06:36 06/17/22 06:36 Labs: Abnormal Lab Results - Last 24 Hours (Table) 06/16/22 06/16/22 06/17/22 Range/Units 16:41 21:02 05:54 RBC (4.10-5.20) X 10*6/uL Hgb (12.0-15.0) g/dL Hct (37.2-46.3) % MCV (80.0-97.0) fL MCHC (32.0-37.0) g/dL RDW (11.5-14.5) % Immature Gran # (0.00-0.04) X 10*3/uL Sodium (135-145) mmol/L Chloride (96-109) mmol/L BUN (9.0-27.0) mg/dL Creatinine (0.6-1.5) mg/dL Est GFR (CKD-EPI)AfAm (60.0-200.0) Est GFR (CKD-EPI)NonAf (60.0-200.0) BUN/Creatinine Ratio (12.00-20.00) Ratio Glucose (70-110) mg/dL POC Glucose (mg/dL) 174 H 168 H 121 H (70-110) mg/dL Total Protein (6.2-8.2) g/dL Albumin (3.8-4.9) g/dL Albumin/Globulin Ratio (1.60-3.17) g/dL 06/17/22 06/17/22 Range/Units 06:36 06:36 RBC 2.50 L (4.10-5.20) X 10*6/uL Hgb 7.8 L (12.0-15.0) g/dL Hct 24.7 L (37.2-46.3) % MCV 98.8 H (80.0-97.0) fL MCHC 31.6 L (32.0-37.0) g/dL RDW 14.6 H (11.5-14.5) % Immature Gran # 0.05 H (0.00-0.04) X 10*3/uL Sodium 149 H (135-145) mmol/L Chloride 114 H (96-109) mmol/L BUN 51.3 H (9.0-27.0) mg/dL Creatinine 1.6 H (0.6-1.5) mg/dL Est GFR (CKD-EPI)AfAm 33.9 L (60.0-200.0) Est GFR (CKD-EPI)NonAf 29.3 L (60.0-200.0) BUN/Creatinine Ratio 32.06 H (12.00-20.00) Ratio Glucose 111 H (70-110) mg/dL POC Glucose (mg/dL) (70-110) mg/dL Total Protein 5.7 L (6.2-8.2) g/dL Albumin 3.3 L (3.8-4.9) g/dL Albumin/Globulin Ratio 1.38 L (1.60-3.17) g/dL Assessment and Plan (1) Closed right hip fracture Narrative/Plan: She will continue with routine postop orthopedic protocol including pain management, wound care, PT, DVT prophylaxis and medical management. She may transfer to [facility] from orthopedic standpoint. Current Visit: Yes Status: Acute Priority: Medium Code(s): S72.001A - FRACTURE OF UNSP PART OF NECK OF RIGHT FEMUR, INIT SNOMED Code(s): 370724374 Time with Patient: Less than 30
[2022-06-17 11:52] LABS: Glucose,Whole Blood 108 mg/dL (70-110)
--- NOTE | 2022-06-17 13:47 | P.PN ---
Subjective Progress Note Date: 06/17/22 Patient is pleasant 86-year-old with moderate to severe dementia had a mechanical fall. Patient does have history of COPD with oxygen lives with the her son with frequent visits from daughter. X-rays showed a displaced right femoral fracture. Patient's EKG showed some ST depressions but patient is going for surgery today initially wanted to order an echocardiogram to see the any wall motion abnormalities patient doesn't have any history of coronary artery disease patient is bit dehydrated with the elevated creatinine of 1.24 baseline creatinine is not available bun of 42 to patient does have leukocytosis. Patient denied any chest pain or shortness of breath at this time patient is on 2 L of oxygen which she wears at home 06/14/22. Patient seen and examined. Patient oxygen requirement increased this morning, had to be placed on 15 L of oxygen via Ventimask. Does not look in any respiratory distress on exam. Denies any chest pain. Case discussed with nursing staff 06/15/22. Patient seen and examined. Currently on 6 L of oxygen via nasal cannula. Respiratory status has improved compared to yesterday. Patient continues to be lethargic. Currently waiting on speech evaluation. 06/16. Patient seen and examined. Currently sitting upright in the bed. Going for swallow study today. Respiratory status has improved compared to yesterday 06/17. Patient seen and examined. Continues to improve. Oxygen requirements are at 4 L. Denies any shortness of breath. Currently on modified diet REVIEW OF SYSTEMS: CONSTITUTIONAL: No fever, no malaise,. CARDIOVASCULAR: No chest pain, no palpitations, no syncope. PULMONARY: no cough, GASTROINTESTINAL: No diarrhea, no nausea, no vomiting, no abdominal pain. NEUROLOGICAL: No headaches, no weakness, PHYSICAL EXAMINATION: GENERAL: The patient is alert , not in any acute distress. Well developed, well nourished. HEENT: Pupils are round and equally reacting to light. EOMI. No scleral icterus. No conjunctival pallor. Normocephalic, atraumatic. No pharyngeal erythema. No thyromegaly. CARDIOVASCULAR: S1 and S2 present. No murmurs, rubs, or gallops. PULMONARY: Coarse breath some bilaterally ABDOMEN: Soft, nontender, nondistended, normoactive bowel sounds. No palpable organomegaly. MUSCULOSKELETAL: No joint swelling or deformity. Right hip surgical scar seen NEUROLOGICAL: Gross neurological examination did not reveal any focal deficits. SKIN: No rashes. Assessment and plan Acute hypoxic respiratory failure Bacterial pneumonia Elevated troponin Status post right hip hemiarthroplasty -Leukocytosis MARIA ELENA -COPD -Hypertension hypothyroidism Plan; Continue oxygen supplementation. Aggressive bronchopulmonary hygiene Aspiration precautions Follow-up on speech study 2-D echo done shows LVEF of 5560 percent, mild mitral regurg, mild tricuspid regurg, no pleural effusion Results of chest x-ray noted, shows bilateral lower lobe infiltrate. CT chest shows the following Bilateral atelectasis with complete atelectasis of the left lower lobe and partial right lower lobe. Specified airways are seen within these lobes correlate for retained secretions/aspiration Continue IV Zosyn. Follow-up on pulmonary recommendations follow-up with cardiology recommendations Orthopedics has cleared the patient for discharge, required Lovenox for DVT prophylaxis Objective - Vital Signs Vital signs: Vital Signs Temp 98.3 F 06/17/22 08:00 Pulse 89 06/17/22 08:51 Resp 17 06/17/22 01:17 BP 148/72 06/17/22 08:00 Pulse Ox 99 06/17/22 08:00 FiO2 100 06/15/22 07:48 Intake & Output 06/16/22 06/17/22 06/17/22 18:59 06:59 18:59 Weight 43.091 kg Other: Voiding Method Diaper Diaper Incontinent Incontinent External Catheter # Voids 1 3 - Labs CBC & Chem 7: 06/17/22 06:36 06/17/22 06:36 Labs: Abnormal Lab Results - Last 24 Hours (Table) 06/16/22 06/16/22 06/17/22 Range/Units 16:41 21:02 05:54 RBC (4.10-5.20) X 10*6/uL Hgb (12.0-15.0) g/dL Hct (37.2-46.3) % MCV (80.0-97.0) fL MCHC (32.0-37.0) g/dL RDW (11.5-14.5) % Immature Gran # (0.00-0.04) X 10*3/uL Sodium (135-145) mmol/L Chloride (96-109) mmol/L BUN (9.0-27.0) mg/dL Creatinine (0.6-1.5) mg/dL Est GFR (CKD-EPI)AfAm (60.0-200.0) Est GFR (CKD-EPI)NonAf (60.0-200.0) BUN/Creatinine Ratio (12.00-20.00) Ratio Glucose (70-110) mg/dL POC Glucose (mg/dL) 174 H 168 H 121 H (70-110) mg/dL Total Protein (6.2-8.2) g/dL Albumin (3.8-4.9) g/dL Albumin/Globulin Ratio (1.60-3.17) g/dL 06/17/22 06/17/22 Range/Units 06:36 06:36 RBC 2.50 L (4.10-5.20) X 10*6/uL Hgb 7.8 L (12.0-15.0) g/dL Hct 24.7 L (37.2-46.3) % MCV 98.8 H (80.0-97.0) fL MCHC 31.6 L (32.0-37.0) g/dL RDW 14.6 H (11.5-14.5) % Immature Gran # 0.05 H (0.00-0.04) X 10*3/uL Sodium 149 H (135-145) mmol/L Chloride 114 H (96-109) mmol/L BUN 51.3 H (9.0-27.0) mg/dL Creatinine 1.6 H (0.6-1.5) mg/dL Est GFR (CKD-EPI)AfAm 33.9 L (60.0-200.0) Est GFR (CKD-EPI)NonAf 29.3 L (60.0-200.0) BUN/Creatinine Ratio 32.06 H (12.00-20.00) Ratio Glucose 111 H (70-110) mg/dL POC Glucose (mg/dL) (70-110) mg/dL Total Protein 5.7 L (6.2-8.2) g/dL Albumin 3.3 L (3.8-4.9) g/dL Albumin/Globulin Ratio 1.38 L (1.60-3.17) g/dL
[2022-06-17 16:03] LABS: Glucose,Whole Blood 149 mg/dL (70-110)
--- NOTE | 2022-06-17 16:52 | P.PN ---
Subjective Progress Note Date: 06/17/22 86-year-old female patient is being seen for hypoxemia following a hip surgery. The patient presented to the hospital because of a displaced right femoral fracture and the patient was taken to the operating room yesterday and the patient underwent ORIF and today she is postop day #1. Note that the patient's oxygen requirement progressively got worse. Initially she was on 2 L and currently she is on a 15 L of oxygen through a nonrebreather facemask. She does not seem to be in significant respiratory distress. The pulmonary consultation was requested accordingly. Chest x-ray showed opacification lung bases worse on the right and the patient has probably some atelectatic changes in the right brit ng base. An underlying effusion cannot be completely excluded. She is known to have advanced COPD and she is oxygen dependent and she lives with her son. No fever. No chills. Blood gas fro today and this was done on a FiO2 of unknown showed a pH of 7.34 with a pCO2 of 37 and pO2 of 50. I believe this was done an FiO2 of 45-50%. Her d-dimer is expectedly elevated at 3.41 following a orthoped ic surgery. The white cell count from yesterday or today is at 12.5 with a hemoglobin of 9.8 and a platelet count of 152. The rest of the blood work shows a BUN of 34 with a creatinine of 1.6 and a sodium level of 143. The glucose at 181. Troponins are 0.0 44. UA was negative. CPK was 323. The patient is seen today 06/15/2022 in follow-up on the regular medical floor. She is currently resting comfortably in bed. Alert in no acute distress. She did undergo ORIF of the right hip. Postoperative day #2. He is currently maintaining O2 saturations up to 100% on nonrebreather mask. She's afebrile. Hemodynamically stable. Computed tomography scan of the chest revealed bilateral atelectasis with complete atelectasis of the left lower lobe and partial right lower lobe. Opacified areas are seen within is correlate for retained secretions/aspiration. Atelectasis. Moderate severe coronary artery atherosclerosis. Today's chest x-ray reveals slight decrease in retrocardiac consolidation with improved aeration in the right lung. Small effusion. COPD changes. White count 11.2. Hemoglobin 8.1. Platelets 145. Sodium 146. Potassium 4.3. BUN 52. Creatinine 2.3. Glucose 141. Calcitonin 3.75. She is continued on DuoNeb inhalations. Lovenox for DVT prophylaxis. Antibiotics in the form of Zosyn. Attempting to work with the incentive spirometer. The patient is seen today 06/16/2022 in follow-up on the regular medical floor. She is currently sitting up in bed. Awake and alert in no acute distress. Denies any worsening shortness of breath, cough or congestion. Currently maintaining O2 saturations in the mid 90s on 4 L/m per nasal cannula. She did undergo a barium swallow which revealed a normal study. No evidence of aspiration or penetration. White count 9.0. Hemoglobin 8.6. Platelets 162. Sodium 151. Potassium 3.9. BUN 52. Creatinine 1.7. Glucose 129. She is currently on normal saline at 75 ML's per hour. She remains on DuoNeb inhalations, Robitussin, antibiotics in the form of Zosyn. On 06/17/2022, clinically the patient is unchanged. Repeat chest x-ray was done today and the patient showed decreasing in retrocardiac opacity on the left and there is some chronic and this is a changes. Nevertheless, the bottom status is improved and the retrocardiac opacity is also improved. The patient has no specific complaints. The patient remains on Lovenox for DVT prophylaxis. The patient on IV Zosyn. No reported aspiration for now. Tolerating diet. Pain is under good control. Surgical one-sided striking and intact. The patient is postoperative day #4 following an ORIF of a hip fracture. The residual is at 7.2 with hemoglobin 7.8, sodium is at 149 and a potassium level of 3.7 with a BMI 51 and a creatinine of 1.6. Motor the patient is also IV fluids. Is on normal saline at rate of 75 an hour. Objective - Vital Signs Vital signs: Vital Signs Temp 98.1 F 06/17/22 14:00 Pulse 89 06/17/22 15:50 Resp 17 06/17/22 14:00 BP 141/67 06/17/22 14:00 Pulse Ox 95 06/17/22 15:39 FiO2 100 06/15/22 07:48 Intake & Output 06/16/22 06/17/22 06/17/22 18:59 06:59 18:59 Weight 43.091 kg Other: Voiding Method Diaper Diaper Incontinent Incontinent External Catheter # Voids 1 3 1 # Bowel Movements 1 - Exam GENERAL: The patient is a very [id number] female patient, alert and oriented x3, not in any acute distress. The patient is currently on 4 L/m per nasal cannula. The breathing is nonlabored. Head exam was generally normal. There was no scleral icterus or corneal arcus. Mucous membranes were moist. Edentulous HEENT: Pupils are round and equally reacting to light. EOMI. No scleral icterus. No conjunctival pallor. Normocephalic, atraumatic. No pharyngeal erythema. No thyromegaly. CARDIOVASCULAR: S1 and S2 present. No murmurs, rubs, or gallops. PULMONARY: Minimal coarse breath sounds bilaterally with faint crackles in the bases ABDOMEN: Soft, nontender, nondistended, normoactive bowel sounds. No palpable organomegaly. MUSCULOSKELETAL: No joint swelling or deformity. EXTREMITIES: No cyanosis, clubbing, or pedal edema. NEUROLOGICAL: Gross neurological examination did not reveal any focal deficits. - Labs CBC & Chem 7: 06/17/22 06:36 06/17/22 06:36 Labs: Abnormal Lab Results - Last 24 Hours (Table) 06/16/22 06/17/22 06/17/22 Range/Units 21:02 05:54 06:36 RBC 2.50 L (4.10-5.20) X 10*6/uL Hgb 7.8 L (12.0-15.0) g/dL Hct 24.7 L (37.2-46.3) % MCV 98.8 H (80.0-97.0) fL MCHC 31.6 L (32.0-37.0) g/dL RDW 14.6 H (11.5-14.5) % Immature Gran # 0.05 H (0.00-0.04) X 10*3/uL Sodium (135-145) mmol/L Chloride (96-109) mmol/L BUN (9.0-27.0) mg/dL Creatinine (0.6-1.5) mg/dL Est GFR (CKD-EPI)AfAm (60.0-200.0) Est GFR (CKD-EPI)NonAf (60.0-200.0) BUN/Creatinine Ratio (12.00-20.00) Ratio Glucose (70-110) mg/dL POC Glucose (mg/dL) 168 H 121 H (70-110) mg/dL Total Protein (6.2-8.2) g/dL Albumin (3.8-4.9) g/dL Albumin/Globulin Ratio (1.60-3.17) g/dL 06/17/22 06/17/22 Range/Units 06:36 16:02 RBC (4.10-5.20) X 10*6/uL Hgb (12.0-15.0) g/dL Hct (37.2-46.3) % MCV (80.0-97.0) fL MCHC (32.0-37.0) g/dL RDW (11.5-14.5) % Immature Gran # (0.00-0.04) X 10*3/uL Sodium 149 H (135-145) mmol/L Chloride 114 H (96-109) mmol/L BUN 51.3 H (9.0-27.0) mg/dL Creatinine 1.6 H (0.6-1.5) mg/dL Est GFR (CKD-EPI)AfAm 33.9 L (60.0-200.0) Est GFR (CKD-EPI)NonAf 29.3 L (60.0-200.0) BUN/Creatinine Ratio 32.06 H (12.00-20.00) Ratio Glucose 111 H (70-110) mg/dL POC Glucose (mg/dL) 149 H (70-110) mg/dL Total Protein 5.7 L (6.2-8.2) g/dL Albumin 3.3 L (3.8-4.9) g/dL Albumin/Globulin Ratio 1.38 L (1.60-3.17) g/dL Assessment and Plan Assessment: Acute on chronic hypoxic respiratory failure. Currently on 4 liters nasal cannul. There is slight improvement in the chest x-ray. Computed tomography scan of the chest revealed bilateral atelectasis with complete atelectasis of the left lower lobe and partial of the right lower lobe. Opacified airways are seen within the slopes correlate for retained secretions/aspiration. Atelectasis likely with postobstructive atelectasis. She is continued on bronchodilators and Zosyn. Educated with the incentive spirometer. The chest x- ray is improving. Oxygenation is stable at 4 L O2 nasal cannula. D-dimer, nonspecific elevation secondary to orthopedic surgery and femur fracture Right femur fracture post-ORIF and the patient is postop day #4 Hypernatremia, currently 151 COPD Chronic hypoxic respiratory failure Dementia Impaired hearing/deafness Chronic kidney disease stage 2-3 Diabetes mellitus Mild hyponatremia Plan: Fluids to KVO Tolerating a diet Encourage the increased use of the incentive spirometer Titrate the FiO2 as tolerated Follow-up chest x-ray in a.m. showed improvement in the left basilar opacity/infiltrate Increase her activity as tolerated We will continue to follow
[2022-06-17 19:34] LABS: Glucose,Whole Blood 185 mg/dL (70-110)
[2022-06-17] MEDS: SENNOSIDES-DOCUSATE SODIUM 1 EACH TAB PO SCH (21:24)
[2022-06-17] MEDS: GABAPENTIN 100 MG CAP PO SCH (21:24)
[2022-06-18] MEDS: HYDROcodone/APAP 7.5-325MG 1 EACH TAB PO PRN (01:20)
[2022-06-18 05:55] LABS: Glucose,Whole Blood 136 mg/dL (70-110)
[2022-06-18] MEDS: LEVOTHYROXINE 50 MCG TAB PO SCH (06:44)
[2022-06-18 08:47] LABS: Basophils # (A) 0.02 X 10*3/uL (0.00-0.10); Basophils % (A) 0.2 %; Eosinophils # (A) 0.07 X 10*3/uL (0.04-0.35); Eosinophils % (A) 0.8 %; HCT 23.3 % (37.2-46.3); HGB 7.3 g/dL (12.0-15.0); Immature Grans, Automated 0.4 %; Lymphocytes % (A) 13.2 %; MCH 30.3 pg (27.0-32.0); MCHC 31.3 g/dL (32.0-37.0); MCV 96.7 fL (80.0-97.0); Mean Platelet Volume 11.5 fL (9.5-12.2); Monocytes # (A) 0.78 X 10*3/uL (0.20-1.00); Monocytes % (A) 9.4 %; NRBC Per 100 WBC 0 /100 WBCS (0.0-0.0); Neutrophils # (A) 6.34 X 10*3/uL (1.80-7.70); Platelet Count 149 X 10*3/uL (140-440); RBC 2.41 X 10*6/uL (4.10-5.20); RDW 14.3 % (11.5-14.5); WBC 8.34 X 10*3/uL (4.50-10.00)
[2022-06-18] MEDS: ENOXAPARIN 30 MG/0.3 ML SYRINGE SQ SCH (09:43)
[2022-06-18] MEDS: PIPERACILLIN-TAZOBACTAM 3.375 GM in SODIUM CHLORIDE 0.9% 100 ML IVPB SCH ×2 (09:43→21:56)
[2022-06-18 12:08] LABS: Glucose,Whole Blood 115 mg/dL (70-110)
--- NOTE | 2022-06-18 12:43 | P.PN ---
Subjective Progress Note Date: 06/18/22 Patient is pleasant 86-year-old with moderate to severe dementia had a mechanical fall. Patient does have history of COPD with oxygen lives with the her son with frequent visits from daughter. X-rays showed a displaced right femoral fracture. Patient's EKG showed some ST depressions but patient is going for surgery today initially wanted to order an echocardiogram to see the any wall motion abnormalities patient doesn't have any history of coronary artery disease patient is bit dehydrated with the elevated creatinine of 1.24 baseline creatinine is not available bun of 42 to patient does have leukocytosis. Patient denied any chest pain or shortness of breath at this time patient is on 2 L of oxygen which she wears at home 06/14/22. Patient seen and examined. Patient oxygen requirement increased this morning, had to be placed on 15 L of oxygen via Ventimask. Does not look in any respiratory distress on exam. Denies any chest pain. Case discussed with nursing staff 06/15/22. Patient seen and examined. Currently on 6 L of oxygen via nasal cannula. Respiratory status has improved compared to yesterday. Patient continues to be lethargic. Currently waiting on speech evaluation. 06/16. Patient seen and examined. Currently sitting upright in the bed. Going for swallow study today. Respiratory status has improved compared to yesterday 06/17. Patient seen and examined. Continues to improve. Oxygen requirements are at 4 L. Denies any shortness of breath. Currently on modified diet 06/18. Patient seen and examined. Lethargic this morning. Nursing staff has also noticed that the patient is retaining urine. Currently on bladder management per protocol. Continues to be on 4 L of oxygen REVIEW OF SYSTEMS: CONSTITUTIONAL: No fever, no malaise,. CARDIOVASCULAR: No chest pain, no palpitations, no syncope. PULMONARY: no cough, GASTROINTESTINAL: No diarrhea, no nausea, no vomiting, no abdominal pain. NEUROLOGICAL: No headaches, no weakness, PHYSICAL EXAMINATION: GENERAL: The patient is alert , not in any acute distress. Well developed, well nourished. HEENT: Pupils are round and equally reacting to light. EOMI. No scleral icterus. No conjunctival pallor. Normocephalic, atraumatic. No pharyngeal erythema. No thyromegaly. CARDIOVASCULAR: S1 and S2 present. No murmurs, rubs, or gallops. PULMONARY: Coarse breath some bilaterally ABDOMEN: Soft, nontender, nondistended, normoactive bowel sounds. No palpable organomegaly. MUSCULOSKELETAL: No joint swelling or deformity. Right hip surgical scar seen NEUROLOGICAL: Gross neurological examination did not reveal any focal deficits. SKIN: No rashes. Assessment and plan Acute hypoxic respiratory failure Bacterial pneumonia Elevated troponin Status post right hip hemiarthroplasty -Leukocytosis MARIA ELENA -COPD -Hypertension hypothyroidism Plan; Continue oxygen supplementation. Aggressive bronchopulmonary hygiene Aspiration precautions Follow-up on speech study,. So done, currently on dysphagia diet 2-D echo done shows LVEF of 5560 percent, mild mitral regurg, mild tricuspid regurg, no pleural effusion chest x-ray noted, shows bilateral lower lobe infiltrate. CT chest shows the following Bilateral atelectasis with complete atelectasis of the left lower lobe and partial right lower lobe. Specified airways are seen within these lobes correlate for retained secretions/aspiration Continue IV Zosyn. Follow-up on pulmonary recommendations follow-up with cardiology recommendations Orthopedics has cleared the patient for discharge, required Lovenox for DVT prophylaxis Objective - Vital Signs Vital signs: Vital Signs Temp 98.0 F 06/18/22 08:00 Pulse 82 06/18/22 08:00 Resp 17 06/18/22 08:00 BP 132/67 06/18/22 08:00 Pulse Ox 92 L 06/18/22 08:00 FiO2 100 06/15/22 07:48 Intake & Output 06/17/22 06/18/22 06/18/22 18:59 06:59 18:59 Intake Total 900 Output Total 4002 2 Balance 900 -4002 -2 Intake: Intake, IV Titration 900 Amount Sodium Chloride 0.9% 1, 900 000 ml @ 75 mls/hr IV . [id number] [facility] Rx#:[id number] Output: Urine 3200 Straight 1200 Post Void Residual 800 Stool 2 2 Other: Voiding Method Diaper Incontinent External Catheter # Voids 2 # Bowel Movements 1 - Labs CBC & Chem 7: 06/18/22 06:17 06/17/22 06:36 Labs: Abnormal Lab Results - Last 24 Hours (Table) 06/17/22 06/17/22 06/18/22 Range/Units 16:02 19:33 05:53 RBC (4.10-5.20) X 10*6/uL Hgb (12.0-15.0) g/dL Hct (37.2-46.3) % MCHC (32.0-37.0) g/dL POC Glucose (mg/dL) 149 H 185 H 136 H (70-110) mg/dL 06/18/22 06/18/22 Range/Units 06:17 12:06 RBC 2.41 L (4.10-5.20) X 10*6/uL Hgb 7.3 L (12.0-15.0) g/dL Hct 23.3 L (37.2-46.3) % MCHC 31.3 L (32.0-37.0) g/dL POC Glucose (mg/dL) 115 H (70-110) mg/dL
--- NOTE | 2022-06-18 12:44 | P.PN ---
Subjective Progress Note Date: 06/18/22 Principal diagnosis: Right hip hemiarthroplasty Patient is seen at bedside this morning. She is postop day #5 from right hip hemiarthroplasty. She has minimal pain at the surgical site and denies any new complaints. She denies numbness, tingling or calf pain. Review of systems is negative for fever, chills, chest pain, shortness of breath or other Objective - Vital Signs Vital signs: Vital Signs Temp 98.0 F 06/18/22 08:00 Pulse 82 06/18/22 08:00 Resp 17 06/18/22 08:00 BP 132/67 06/18/22 08:00 Pulse Ox 92 L 06/18/22 08:00 FiO2 100 06/15/22 07:48 Intake & Output 06/17/22 06/18/22 06/18/22 18:59 06:59 18:59 Intake Total 900 Output Total 4002 2 Balance 900 -4002 -2 Intake: Intake, IV Titration 900 Amount Sodium Chloride 0.9% 1, 900 000 ml @ 75 mls/hr IV . [id number] [facility] Rx#:[id number] Output: Urine 3200 Straight 1200 Post Void Residual 800 Stool 2 2 Other: Voiding Method Diaper Incontinent External Catheter # Voids 2 # Bowel Movements 1 - Exam Inspection reveals a benign surgical wound. There is no active bleeding or d rainage. Neurovascular status is intact throughout the lower extremity with motor and sensation fully intact. Calf is soft and nontender. 2+ dorsalis pedis pulse and less than 2 second cap refill is present. - Constitutional General appearance: Present: no acute distress - Labs CBC & Chem 7: 06/18/22 06:17 06/17/22 06:36 Labs: Abnormal Lab Results - Last 24 Hours (Table) 06/17/22 06/17/22 06/18/22 Range/Units 16:02 19:33 05:53 RBC (4.10-5.20) X 10*6/uL Hgb (12.0-15.0) g/dL Hct (37.2-46.3) % MCHC (32.0-37.0) g/dL POC Glucose (mg/dL) 149 H 185 H 136 H (70-110) mg/dL 06/18/22 06/18/22 Range/Units 06:17 12:06 RBC 2.41 L (4.10-5.20) X 10*6/uL Hgb 7.3 L (12.0-15.0) g/dL Hct 23.3 L (37.2-46.3) % MCHC 31.3 L (32.0-37.0) g/dL POC Glucose (mg/dL) 115 H (70-110) mg/dL Assessment and Plan (1) Closed right hip fracture Narrative/Plan: She will continue with routine postop orthopedic protocol including pain management, wound care, PT, DVT prophylaxis and medical management. She may transfer to [facility] from orthopedic standpoint Current Visit: Yes Status: Acute Priority: Medium Code(s): S72.001A - FRACTURE OF UNSP PART OF NECK OF RIGHT FEMUR, INIT SNOMED Code(s): 954234450 Time with Patient: Less than 30
[2022-06-18] MEDS: ASPIRIN 81 MG PO SCH (13:24)
[2022-06-18 16:51] LABS: Glucose,Whole Blood 202 mg/dL (70-110)
--- NOTE | 2022-06-18 17:00 | P.PN ---
Subjective Progress Note Date: 06/18/22 86-year-old female patient is being seen for hypoxemia following a hip surgery. The patient presented to the hospital because of a displaced right femoral fracture and the patient was taken to the operating room yesterday and the patient underwent ORIF and today she is postop day #1. Note that the patient's oxygen requirement progressively got worse. Initially she was on 2 L and currently she is on a 15 L of oxygen through a nonrebreather facemask. She does not seem to be in significant respiratory distress. The pulmonary consultation was requested accordingly. Chest x-ray showed opacification lung bases worse on the right and the patient has probably some atelectatic changes in the right brit ng base. An underlying effusion cannot be completely excluded. She is known to have advanced COPD and she is oxygen dependent and she lives with her son. No fever. No chills. Blood gas fro today and this was done on a FiO2 of unknown showed a pH of 7.34 with a pCO2 of 37 and pO2 of 50. I believe this was done an FiO2 of 45-50%. Her d-dimer is expectedly elevated at 3.41 following a orthoped ic surgery. The white cell count from yesterday or today is at 12.5 with a hemoglobin of 9.8 and a platelet count of 152. The rest of the blood work shows a BUN of 34 with a creatinine of 1.6 and a sodium level of 143. The glucose at 181. Troponins are 0.0 44. UA was negative. CPK was 323. The patient is seen today 06/15/2022 in follow-up on the regular medical floor. She is currently resting comfortably in bed. Alert in no acute distress. She did undergo ORIF of the right hip. Postoperative day #2. He is currently maintaining O2 saturations up to 100% on nonrebreather mask. She's afebrile. Hemodynamically stable. Computed tomography scan of the chest revealed bilateral atelectasis with complete atelectasis of the left lower lobe and partial right lower lobe. Opacified areas are seen within is correlate for retained secretions/aspiration. Atelectasis. Moderate severe coronary artery atherosclerosis. Today's chest x-ray reveals slight decrease in retrocardiac consolidation with improved aeration in the right lung. Small effusion. COPD changes. White count 11.2. Hemoglobin 8.1. Platelets 145. Sodium 146. Potassium 4.3. BUN 52. Creatinine 2.3. Glucose 141. Calcitonin 3.75. She is continued on DuoNeb inhalations. Lovenox for DVT prophylaxis. Antibiotics in the form of Zosyn. Attempting to work with the incentive spirometer. The patient is seen today 06/16/2022 in follow-up on the regular medical floor. She is currently sitting up in bed. Awake and alert in no acute distress. Denies any worsening shortness of breath, cough or congestion. Currently maintaining O2 saturations in the mid 90s on 4 L/m per nasal cannula. She did undergo a barium swallow which revealed a normal study. No evidence of aspiration or penetration. White count 9.0. Hemoglobin 8.6. Platelets 162. Sodium 151. Potassium 3.9. BUN 52. Creatinine 1.7. Glucose 129. She is currently on normal saline at 75 ML's per hour. She remains on DuoNeb inhalations, Robitussin, antibiotics in the form of Zosyn. On 06/17/2022, clinically the patient is unchanged. Repeat chest x-ray was done today and the patient showed decreasing in retrocardiac opacity on the left and there is some chronic and this is a changes. Nevertheless, the bottom status is improved and the retrocardiac opacity is also improved. The patient has no specific complaints. The patient remains on Lovenox for DVT prophylaxis. The patient on IV Zosyn. No reported aspiration for now. Tolerating diet. Pain is under good control. Surgical one-sided striking and intact. The patient is postoperative day #4 following an ORIF of a hip fracture. The residual is at 7.2 with hemoglobin 7.8, sodium is at 149 and a potassium level of 3.7 with a BMI 51 and a creatinine of 1.6. Motor the patient is also IV fluids. Is on normal saline at rate of 75 an hour. 06/18/2022, the patient seen for a follow-up. The patient is postop day #5. The patient underwent ORIF of the hip. On today's evaluation, the patient is on 4 L of oxygen by nasal cannula. The patient is using the incentive spirometer. The patient on IV Zosyn. At times, the patient was found to be lethargic. The patient also found to be somewhat confused. Family the bedside. The patient had a CAT scan of the chest that showed right-sided pleural effusion and right basilar atelectasis. Patient's coughing mechanism is extremely poor. She is not doing what efforts with pulmonary toileting. Remains on IV Zosyn. Objective - Vital Signs Vital signs: Vital Signs Temp 97.5 F L 06/18/22 14:00 Pulse 110 H 06/18/22 14:00 Resp 16 06/18/22 14:00 BP 154/64 06/18/22 14:00 Pulse Ox 93 L 06/18/22 14:00 FiO2 100 06/15/22 07:48 Intake & Output 06/17/22 06/18/22 06/18/22 18:59 06:59 18:59 Intake Total 900 Output Total 4002 2 Balance 900 -4002 -2 Weight 43.091 kg Intake: Intake, IV Titration 900 Amount Sodium Chloride 0.9% 1, 900 000 ml @ 75 mls/hr IV . [id number] [facility] Rx#:[id number] Output: Urine 3200 Straight 1200 Post Void Residual 800 Stool 2 2 Other: Voiding Method Diaper Incontinent External Catheter # Voids 2 # Bowel Movements 1 - Exam GENERAL: The patient is a very [id number] female patient, alert and oriented x3, not in any acute distress. The patient is currently on 4 L/m per nasal cannula. The breathing is nonlabored. Head exam was generally normal. There was no scleral icterus or corneal arcus. Mucous membranes were moist. Edentulous HEENT: Pupils are round and equally reacting to light. EOMI. No scleral icterus. No conjunctival pallor. Normocephalic, atraumatic. No pharyngeal erythema. No thyromegaly. CARDIOVASCULAR: S1 and S2 present. No murmurs, rubs, or gallops. PULMONARY: Minimal coarse breath sounds bilaterally with faint crackles in the bases ABDOMEN: Soft, nontender, nondistended, normoactive bowel sounds. No palpable organomegaly. MUSCULOSKELETAL: No joint swelling or deformity. EXTREMITIES: No cyanosis, clubbing, or pedal edema. NEUROLOGICAL: Gross neurological examination did not reveal any focal deficits. - Labs CBC & Chem 7: 06/18/22 06:17 06/17/22 06:36 Labs: Abnormal Lab Results - Last 24 Hours (Table) 06/17/22 06/18/22 06/18/22 Range/Units 19:33 05:53 06:17 RBC 2.41 L (4.10-5.20) X 10*6/uL Hgb 7.3 L (12.0-15.0) g/dL Hct 23.3 L (37.2-46.3) % MCHC 31.3 L (32.0-37.0) g/dL POC Glucose (mg/dL) 185 H 136 H (70-110) mg/dL 06/18/22 06/18/22 Range/Units 12:06 16:50 RBC (4.10-5.20) X 10*6/uL Hgb (12.0-15.0) g/dL Hct (37.2-46.3) % MCHC (32.0-37.0) g/dL POC Glucose (mg/dL) 115 H 202 H (70-110) mg/dL Assessment and Plan Assessment: Acute on chronic hypoxic respiratory failure. Currently on 4 liters nasal cannul. There is slight improvement in the chest x-ray. Computed tomography scan of the chest revealed bilateral atelectasis with complete atelectasis of the left lower lobe and partial of the right lower lobe. Opacified airways are seen within the slopes correlate for retained secretions/aspiration. Atelecta sis likely with postobstructive atelectasis. She is continued on bronchodilators and Zosyn. Educated with the incentive spirometer. The chest x- ray is improving. Oxygenation is stable at 4 L O2 nasal cannula. D-dimer, nonspecific elevation secondary to orthopedic surgery and femur fracture Right femur fracture post-ORIF and the patient is postop day #5 Hypernatremia, improving COPD Chronic hypoxic respiratory failure Dementia Impaired hearing/deafness Chronic kidney disease stage 2-3 Diabetes mellitus Mild hyponatremia Plan: Continue same treatment plan Fluids to KVO Tolerating a diet Encourage the increased use of the incentive spirometer Continue with Lovenox for DVT prophylaxis 30 mg subcu on a daily basis Increase her activity as tolerated We will continue to follow Long-term prognosis poor based above-mentioned comorbidities
[2022-06-18 20:26] LABS: Glucose,Whole Blood 157 mg/dL (70-110)
[2022-06-18] MEDS: GABAPENTIN 100 MG CAP PO SCH (21:56)
[2022-06-18] MEDS: SENNOSIDES-DOCUSATE SODIUM 1 EACH TAB PO SCH (21:56)
[2022-06-19] MEDS: ONDANSETRON 4 MG/2 ML VIAL IVP PRN (03:32)
[2022-06-19] MEDS: traMADol 50 MG TAB PO PRN (03:40)
[2022-06-19 06:24] LABS: Glucose,Whole Blood 143 mg/dL (70-110)
[2022-06-19] MEDS: LEVOTHYROXINE 50 MCG TAB PO SCH (06:44)
[2022-06-19 08:04] LABS: Basophils % (A) 0 %; Eosinophils # (A) 0.1 k/uL (0-0.7); Eosinophils % (A) 2 %; HCT 24.8 % (34.0-46.0); Hypochromasia Marked; Lymphocytes # (A) 0.9 k/uL (1.0-4.8); Lymphocytes % (A) 13 %; MCH 30.2 pg (25.0-35.0); MCHC 30.3 g/dL (31.0-37.0); Mean Platelet Volume 9.9; Monocytes # (A) 0.4 k/uL (0-1.0); Monocytes % (A) 5 %; Neutrophils # (A) 5.5 k/uL (1.3-7.7); Neutrophils % (A) 78 %; Platelet Count 136 k/uL (150-450); RBC 2.48 m/uL (3.80-5.40); RDW 14.2 % (11.5-15.5); WBC 7.1 k/uL (3.8-10.6)
[2022-06-19 08:07] LABS: HGB 7.5 gm/dL (11.4-16.0); MCV 99.7 fL (80.0-100.0)
[2022-06-19] MEDS: ASPIRIN 81 MG PO SCH (08:12)
[2022-06-19] MEDS: ENOXAPARIN 30 MG/0.3 ML SYRINGE SQ SCH (08:12)
[2022-06-19] MEDS: PIPERACILLIN-TAZOBACTAM 3.375 GM in SODIUM CHLORIDE 0.9% 100 ML IVPB SCH ×3 (08:12→23:49)
[2022-06-19 08:14] LABS: ALT 11 U/L (4-34); AST 19 U/L (14-36); African American GFR (CKD) 52 (>60 ml/min/1.73 sqM); Albumin 2.5 g/dL (3.5-5.0); Albumin/Globulin Ratio 1.2; Alkaline Phosphatase 49 U/L (38-126); Anion Gap 3 mmol/L; Blood Urea Nitrogen 26 mg/dL (7-17); Calcium 8.3 mg/dL (8.4-10.2); Carbon Dioxide 26 mmol/L (22-30); Chloride 111 mmol/L (98-107); Globulin 2.1 g/dL; Glucose 183 mg/dL (74-99); Non-African American GFR(CKD) 45 (>60 ml/min/1.73 sqM); Potassium 3.7 mmol/L (3.5-5.1); Sodium 140 mmol/L (137-145); Total Bilirubin 0.6 mg/dL (0.2-1.3); Total Protein 4.6 g/dL (6.3-8.2)
[2022-06-19 11:30] LABS: Glucose,Whole Blood 145 mg/dL (70-110)
--- NOTE | 2022-06-19 12:57 | P.PN ---
Subjective Progress Note Date: 06/19/22 Patient is pleasant 86-year-old with moderate to severe dementia had a mechanical fall. Patient does have history of COPD with oxygen lives with the her son with frequent visits from daughter. X-rays showed a displaced right femoral fracture. Patient's EKG showed some ST depressions but patient is going for surgery today initially wanted to order an echocardiogram to see the any wall motion abnormalities patient doesn't have any history of coronary artery disease patient is bit dehydrated with the elevated creatinine of 1.24 baseline creatinine is not available bun of 42 to patient does have leukocytosis. Patient denied any chest pain or shortness of breath at this time patient is on 2 L of oxygen which she wears at home 06/14/22. Patient seen and examined. Patient oxygen requirement increased this morning, had to be placed on 15 L of oxygen via Ventimask. Does not look in any respiratory distress on exam. Denies any chest pain. Case discussed with nursing staff 06/15/22. Patient seen and examined. Currently on 6 L of oxygen via nasal cannula. Respiratory status has improved compared to yesterday. Patient continues to be lethargic. Currently waiting on speech evaluation. 06/16. Patient seen and examined. Currently sitting upright in the bed. Going for swallow study today. Respiratory status has improved compared to yesterday 06/17. Patient seen and examined. Continues to improve. Oxygen requirements are at 4 L. Denies any shortness of breath. Currently on modified diet 06/18. Patient seen and examined. Lethargic this morning. Nursing staff has also noticed that the patient is retaining urine. Currently on bladder management per protocol. Continues to be on 4 L of oxygen 06/19. Patient seen and examined. Labs reviewed. Patient is doing much better, more responsive, does not look in acute distress. Shortness of breath is improving. REVIEW OF SYSTEMS: CONSTITUTIONAL: No fever, no malaise,. CARDIOVASCULAR: No chest pain, no palpitations, no syncope. PULMONARY: no cough, GASTROINTESTINAL: No diarrhea, no nausea, no vomiting, no abdominal pain. NEUROLOGICAL: No headaches, no weakness, PHYSICAL EXAMINATION: GENERAL: The patient is alert , not in any acute distress. Well developed, well nourished. HEENT: Pupils are round and equally reacting to light. EOMI. No scleral icterus. No conjunctival pallor. Normocephalic, atraumatic. No pharyngeal erythema. No thyromegaly. CARDIOVASCULAR: S1 and S2 present. No murmurs, rubs, or gallops. PULMONARY: Coarse breath some bilaterally ABDOMEN: Soft, nontender, nondistended, normoactive bowel sounds. No palpable organomegaly. MUSCULOSKELETAL: No joint swelling or deformity. Right hip surgical scar seen NEUROLOGICAL: Gross neurological examination did not reveal any focal deficits. SKIN: No rashes. Assessment and plan Acute hypoxic respiratory failure Bacterial pneumonia Elevated troponin Status post right hip hemiarthroplasty -Leukocytosis MARIA ELENA -COPD -Hypertension hypothyroidism Plan; Continue oxygen supplementation. Aggressive bronchopulmonary hygiene Aspiration precautions Follow-up on speech study,. VFSS done, currently on dysphagia diet 2-D echo done shows LVEF of 5560 percent, mild mitral regurg, mild tricuspid regurg, no pleural effusion chest x-ray noted, shows bilateral lower lobe infiltrate. CT chest shows the following Bilateral atelectasis with complete atelectasis of the left lower lobe and partial right lower lobe. Specified airways are seen within these lobes correlate for retained secretions/aspiration Continue IV Zosyn. Follow-up on pulmonary recommendations follow-up with cardiology recommendations Orthopedics has cleared the patient for discharge, required Lovenox for DVT prophylaxis Objective - Vital Signs Vital signs: Vital Signs Temp 97.9 F 06/19/22 08:00 Pulse 82 06/19/22 08:00 Resp 17 06/19/22 08:00 BP 135/72 06/19/22 08:00 Pulse Ox 97 06/19/22 09:12 FiO2 100 06/15/22 07:48 Intake & Output 06/18/22 06/19/22 06/19/22 18:59 06:59 18:59 Output Total 1202 1000 Balance -1202 -1000 Weight 43.091 kg Output: Urine 1200 1000 Stool 2 Other: Voiding Method Diaper Diaper Incontinent Incontinent External Catheter Indwelling Catheter - Labs CBC & Chem 7: 06/19/22 07:44 06/19/22 07:44 Labs: Abnormal Lab Results - Last 24 Hours (Table) 06/18/22 06/18/22 06/19/22 Range/Units 16:50 20:24 06:22 RBC (3.80-5.40) m/uL Hgb (11.4-16.0) gm/dL Hct (34.0-46.0) % MCHC (31.0-37.0) g/dL Plt Count (150-450) k/uL Lymphocytes # (1.0-4.8) k/uL Chloride (98-107) mmol/L BUN (7-17) mg/dL Creatinine (0.52-1.04) mg/dL Glucose (74-99) mg/dL POC Glucose (mg/dL) 202 H 157 H 143 H (70-110) mg/dL Calcium (8.4-10.2) mg/dL Total Protein (6.3-8.2) g/dL Albumin (3.5-5.0) g/dL 06/19/22 06/19/22 06/19/22 Range/Units 07:44 07:44 11:28 RBC 2.48 L (3.80-5.40) m/uL Hgb 7.5 L D (11.4-16.0) gm/dL Hct 24.8 L (34.0-46.0) % MCHC 30.3 L (31.0-37.0) g/dL Plt Count 136 L (150-450) k/uL Lymphocytes # 0.9 L (1.0-4.8) k/uL Chloride 111 H (98-107) mmol/L BUN 26 H (7-17) mg/dL Creatinine 1.12 H (0.52-1.04) mg/dL Glucose 183 H (74-99) mg/dL POC Glucose (mg/dL) 145 H (70-110) mg/dL Calcium 8.3 L (8.4-10.2) mg/dL Total Protein 4.6 L (6.3-8.2) g/dL Albumin 2.5 L (3.5-5.0) g/dL
--- NOTE | 2022-06-19 14:07 | P.PN ---
Subjective Progress Note Date: 06/19/22 Principal diagnosis: Right hip hemiarthroplasty Patient is seen at bedside this morning. She is postop day #6 from right hip hemiarthroplasty. She has minimal pain at the surgical site and denies any new complaints. She denies numbness, tingling or calf pain. Review of systems is negative for fever, chills, chest pain, shortness of breath or other Objective - Vital Signs Vital signs: Vital Signs Temp 97.9 F 06/19/22 08:00 Pulse 82 06/19/22 08:00 Resp 17 06/19/22 08:00 BP 135/72 06/19/22 08:00 Pulse Ox 97 06/19/22 09:12 FiO2 100 06/15/22 07:48 Intake & Output 06/18/22 06/19/22 06/19/22 18:59 06:59 18:59 Output Total 1202 1000 Balance -1202 -1000 Weight 43.091 kg Output: Urine 1200 1000 Stool 2 Other: Voiding Method Diaper Diaper Incontinent Incontinent External Catheter Indwelling Catheter - Exam Inspection reveals a benign surgical wound. There is no active bleeding or drainage. Neurovascular status is intact throughout the lower extremity with motor and sensation fully intact. Calf is soft and nontender. 2+ dorsalis pedis pulse and less than 2 second cap refill is present. - Constitutional General appearance: Present: no acute distress - Labs CBC & Chem 7: 06/19/22 07:44 06/19/22 07:44 Labs: Abnormal Lab Results - Last 24 Hours (Table) 06/18/22 06/18/22 06/19/22 Range/Units 16:50 20:24 06:22 RBC (3.80-5.40) m/uL Hgb (11.4-16.0) gm/dL Hct (34.0-46.0) % MCHC (31.0-37.0) g/dL Plt Count (150-450) k/uL Lymphocytes # (1.0-4.8) k/uL Chloride (98-107) mmol/L BUN (7-17) mg/dL Creatinine (0.52-1.04) mg/dL Glucose (74-99) mg/dL POC Glucose (mg/dL) 202 H 157 H 143 H (70-110) mg/dL Calcium (8.4-10.2) mg/dL Total Protein (6.3-8.2) g/dL Albumin (3.5-5.0) g/dL 06/19/22 06/19/22 06/19/22 Range/Units 07:44 07:44 11:28 RBC 2.48 L (3.80-5.40) m/uL Hgb 7.5 L D (11.4-16.0) gm/dL Hct 24.8 L (34.0-46.0) % MCHC 30.3 L (31.0-37.0) g/dL Plt Count 136 L (150-450) k/uL Lymphocytes # 0.9 L (1.0-4.8) k/uL Chloride 111 H (98-107) mmol/L BUN 26 H (7-17) mg/dL Creatinine 1.12 H (0.52-1.04) mg/dL Glucose 183 H (74-99) mg/dL POC Glucose (mg/dL) 145 H (70-110) mg/dL Calcium 8.3 L (8.4-10.2) mg/dL Total Protein 4.6 L (6.3-8.2) g/dL Albumin 2.5 L (3.5-5.0) g/dL Assessment and Plan (1) Closed right hip fracture Narrative/Plan: She will continue with routine postop orthopedic protocol including pain management, wound care, PT, DVT prophylaxis and medical management. She may transfer to [facility] from orthopedic standpoint Current Visit: Yes Status: Acute Priority: Medium Code(s): S72.001A - FRACTURE OF UNSP PART OF NECK OF RIGHT FEMUR, INIT SNOMED Code(s): 628318557 Time with Patient: Less than 30
--- NOTE | 2022-06-19 16:27 | P.PN ---
Subjective Progress Note Date: 06/19/22 86-year-old female patient is being seen for hypoxemia following a hip surgery. The patient presented to the hospital because of a displaced right femoral fracture and the patient was taken to the operating room yesterday and the patient underwent ORIF and today she is postop day #1. Note that the patient's oxygen requirement progressively got worse. Initially she was on 2 L and currently she is on a 15 L of oxygen through a nonrebreather facemask. She does not seem to be in significant respiratory distress. The pulmonary consultation was requested accordingly. Chest x-ray showed opacification lung bases worse on the right and the patient has probably some atelectatic changes in the right brit ng base. An underlying effusion cannot be completely excluded. She is known to have advanced COPD and she is oxygen dependent and she lives with her son. No fever. No chills. Blood gas fro today and this was done on a FiO2 of unknown showed a pH of 7.34 with a pCO2 of 37 and pO2 of 50. I believe this was done an FiO2 of 45-50%. Her d-dimer is expectedly elevated at 3.41 following a orthoped ic surgery. The white cell count from yesterday or today is at 12.5 with a hemoglobin of 9.8 and a platelet count of 152. The rest of the blood work shows a BUN of 34 with a creatinine of 1.6 and a sodium level of 143. The glucose at 181. Troponins are 0.0 44. UA was negative. CPK was 323. The patient is seen today 06/15/2022 in follow-up on the regular medical floor. She is currently resting comfortably in bed. Alert in no acute distress. She did undergo ORIF of the right hip. Postoperative day #2. He is currently maintaining O2 saturations up to 100% on nonrebreather mask. She's afebrile. Hemodynamically stable. Computed tomography scan of the chest revealed bilateral atelectasis with complete atelectasis of the left lower lobe and partial right lower lobe. Opacified areas are seen within is correlate for retained secretions/aspiration. Atelectasis. Moderate severe coronary artery atherosclerosis. Today's chest x-ray reveals slight decrease in retrocardiac consolidation with improved aeration in the right lung. Small effusion. COPD changes. White count 11.2. Hemoglobin 8.1. Platelets 145. Sodium 146. Potassium 4.3. BUN 52. Creatinine 2.3. Glucose 141. Calcitonin 3.75. She is continued on DuoNeb inhalations. Lovenox for DVT prophylaxis. Antibiotics in the form of Zosyn. Attempting to work with the incentive spirometer. The patient is seen today 06/16/2022 in follow-up on the regular medical floor. She is currently sitting up in bed. Awake and alert in no acute distress. Denies any worsening shortness of breath, cough or congestion. Currently maintaining O2 saturations in the mid 90s on 4 L/m per nasal cannula. She did undergo a barium swallow which revealed a normal study. No evidence of aspiration or penetration. White count 9.0. Hemoglobin 8.6. Platelets 162. Sodium 151. Potassium 3.9. BUN 52. Creatinine 1.7. Glucose 129. She is currently on normal saline at 75 ML's per hour. She remains on DuoNeb inhalations, Robitussin, antibiotics in the form of Zosyn. On 06/17/2022, clinically the patient is unchanged. Repeat chest x-ray was done today and the patient showed decreasing in retrocardiac opacity on the left and there is some chronic and this is a changes. Nevertheless, the bottom status is improved and the retrocardiac opacity is also improved. The patient has no specific complaints. The patient remains on Lovenox for DVT prophylaxis. The patient on IV Zosyn. No reported aspiration for now. Tolerating diet. Pain is under good control. Surgical one-sided striking and intact. The patient is postoperative day #4 following an ORIF of a hip fracture. The residual is at 7.2 with hemoglobin 7.8, sodium is at 149 and a potassium level of 3.7 with a BMI 51 and a creatinine of 1.6. Motor the patient is also IV fluids. Is on normal saline at rate of 75 an hour. 06/18/2022, the patient seen for a follow-up. The patient is postop day #5. The patient underwent ORIF of the hip. On today's evaluation, the patient is on 4 L of oxygen by nasal cannula. The patient is using the incentive spirometer. The patient on IV Zosyn. At times, the patient was found to be lethargic. The patient also found to be somewhat confused. Family the bedside. The patient had a CAT scan of the chest that showed right-sided pleural effusion and right basilar atelectasis. Patient's coughing mechanism is extremely poor. She is not doing what efforts with pulmonary toileting. Remains on IV Zosyn. 06/19/2022, the patient is doing well. She is using the incentive spirometer. She is postop day #6 following her right hip ORIF. Surgical 1 site remains dry. The patient remains on IV Zosyn. She has a congested cough. Minimal amounts of sputum production. She had she is trying and she has been trying to expectorate mucus. Her coughing efforts of minimal at this point in time. She remains on Lovenox 30 mg subcu for deep prophylaxis. No issues with pain. Tolerating diet. Family was at the bedside. No new complaints otherwise for now. The white cell count of 7.12. Hemoglobin 7.5. BUN is 26 with a creatinine 1.1 and sodium levels of 140. Objective - Vital Signs Vital signs: Vital Signs Temp 97.9 F 06/19/22 14:00 Pulse 78 06/19/22 14:00 Resp 18 06/19/22 14:00 BP 100/61 06/19/22 14:00 Pulse Ox 97 06/19/22 14:00 FiO2 100 06/15/22 07:48 Intake & Output 06/18/22 06/19/22 06/19/22 18:59 06:59 18:59 Output Total 1202 1000 Balance -1202 -1000 Weight 43.091 kg Output: Urine 1200 1000 Stool 2 Other: Voiding Method Diaper Diaper Incontinent Incontinent External Catheter Indwelling Catheter - Exam GENERAL: The patient is a very [id number] female patient, alert and oriented x3, not in any acute distress. The patient is currently on 4 L/m per nasal cannula. The breathing is nonlabored. Head exam was generally normal. There was no scleral icterus or corneal arcus. Mucous membranes were moist. Edentulous HEENT: Pupils are round and equally reacting to light. EOMI. No scleral icterus. No conjunctival pallor. Normocephalic, atraumatic. No pharyngeal erythema. No thyromegaly. CARDIOVASCULAR: S1 and S2 present. No murmurs, rubs, or gallops. PULMONARY: Minimal coarse breath sounds bilaterally with faint crackles in the bases ABDOMEN: Soft, nontender, nondistended, normoactive bowel sounds. No palpable organomegaly. MUSCULOSKELETAL: No joint swelling or deformity. EXTREMITIES: No cyanosis, clubbing, or pedal edema. NEUROLOGICAL: Gross neurological examination did not reveal any focal deficits. - Labs CBC & Chem 7: 06/19/22 07:44 06/19/22 07:44 Labs: Abnormal Lab Results - Last 24 Hours (Table) 06/18/22 06/18/22 06/19/22 Range/Units 16:50 20:24 06:22 RBC (3.80-5.40) m/uL Hgb (11.4-16.0) gm/dL Hct (34.0-46.0) % MCHC (31.0-37.0) g/dL Plt Count (150-450) k/uL Lymphocytes # (1.0-4.8) k/uL Chloride (98-107) mmol/L BUN (7-17) mg/dL Creatinine (0.52-1.04) mg/dL Glucose (74-99) mg/dL POC Glucose (mg/dL) 202 H 157 H 143 H (70-110) mg/dL Calcium (8.4-10.2) mg/dL Total Protein (6.3-8.2) g/dL Albumin (3.5-5.0) g/dL 06/19/22 06/19/22 06/19/22 Range/Units 07:44 07:44 11:28 RBC 2.48 L (3.80-5.40) m/uL Hgb 7.5 L D (11.4-16.0) gm/dL Hct 24.8 L (34.0-46.0) % MCHC 30.3 L (31.0-37.0) g/dL Plt Count 136 L (150-450) k/uL Lymphocytes # 0.9 L (1.0-4.8) k/uL Chloride 111 H (98-107) mmol/L BUN 26 H (7-17) mg/dL Creatinine 1.12 H (0.52-1.04) mg/dL Glucose 183 H (74-99) mg/dL POC Glucose (mg/dL) 145 H (70-110) mg/dL Calcium 8.3 L (8.4-10.2) mg/dL Total Protein 4.6 L (6.3-8.2) g/dL Albumin 2.5 L (3.5-5.0) g/dL Assessment and Plan Assessment: Acute on chronic hypoxic respiratory failure. Currently on 4 liters nasal cannul. There is slight improvement in the chest x-ray. Computed tomography scan of the chest revealed bilateral atelectasis with complete atelectasis of the left lower lobe and partial of the right lower lobe. Opacified airways are seen within the slopes correlate for retained secretions/aspiration. Atelectasis likely with postobstructive atelectasis. She is continued on bronchodilators and Zosyn. Educated with the incentive spirometer. The chest x- ray is improving. Oxygenation is stable at 4 L O2 nasal cannula. D-dimer, nonspecific elevation secondary to orthopedic surgery and femur fracture Right femur fracture post-ORIF and the patient is postop day #5 Hypernatremia, improving COPD Chronic hypoxic respiratory failure Dementia Impaired hearing/deafness Chronic kidney disease stage 2-3 Diabetes mellitus Mild hyponatremia Plan: Condition is stable Oxygen stable at 4 L White cell count nonelevated Hemoglobin stable at 7.5 Creatinine is also stable Continue same treatment plan Fluids to KVO Encourage use of incentive spirometer Tolerating a diet Continue with Lovenox for DVT prophylaxis 30 mg subcu on a daily basis Increase her activity as tolerated We will continue to follow Long-term prognosis poor based above-mentioned comorbidities
[2022-06-19 16:41] LABS: Glucose,Whole Blood 138 mg/dL (70-110)
[2022-06-19] MEDS: IPRATROPIUM-ALBUTEROL 3 ML NEB INHALATION PRN (19:39)
[2022-06-19 20:15] LABS: Glucose,Whole Blood 213 mg/dL (70-110)
[2022-06-19] MEDS: SENNOSIDES-DOCUSATE SODIUM 1 EACH TAB PO SCH (21:14)
[2022-06-19] MEDS: ACETAMINOPHEN TAB 325 MG TAB PO PRN (21:15)
[2022-06-19] MEDS: GABAPENTIN 100 MG CAP PO SCH (21:15)
[2022-06-20] MEDS: LEVOTHYROXINE 50 MCG TAB PO SCH (05:49)
[2022-06-20 05:52] LABS: Glucose,Whole Blood 115 mg/dL (70-110)
[2022-06-20 06:39] LABS: ALT 9 U/L (4-34); AST 15 U/L (14-36); African American GFR (CKD) 46 (>60 ml/min/1.73 sqM); Albumin 2.3 g/dL (3.5-5.0); Albumin/Globulin Ratio 1.2; Alkaline Phosphatase 51 U/L (38-126); Anion Gap -1 mmol/L; Blood Urea Nitrogen 26 mg/dL (7-17); Calcium 8.5 mg/dL (8.4-10.2); Carbon Dioxide 28 mmol/L (22-30); Chloride 111 mmol/L (98-107); Glucose 104 mg/dL (74-99); Non-African American GFR(CKD) 40 (>60 ml/min/1.73 sqM); Sodium 138 mmol/L (137-145); Total Bilirubin 0.5 mg/dL (0.2-1.3); Total Protein 4.3 g/dL (6.3-8.2)
[2022-06-20 06:45] LABS: Glucose,Whole Blood 111 mg/dL (70-110)
[2022-06-20 06:55] LABS: HCT 24.4 % (34.0-46.0); HGB 7.5 gm/dL (11.4-16.0); Hypochromasia Moderate; MCHC 30.6 g/dL (31.0-37.0); MCV 98.1 fL (80.0-100.0); Mean Platelet Volume 10.2; Platelet Count 159 k/uL (150-450); RBC 2.49 m/uL (3.80-5.40); RDW 14.1 % (11.5-15.5); WBC 7.6 k/uL (3.8-10.6)
[2022-06-20] MEDS: ENOXAPARIN 30 MG/0.3 ML SYRINGE SQ SCH (07:59)
[2022-06-20] MEDS: PIPERACILLIN-TAZOBACTAM 3.375 GM in SODIUM CHLORIDE 0.9% 100 ML IVPB SCH ×3 (08:00→23:52)
[2022-06-20] MEDS: ASPIRIN 81 MG PO SCH (08:00)
[2022-06-20 11:14] LABS: Glucose,Whole Blood 188 mg/dL (70-110)
--- NOTE | 2022-06-20 13:21 | P.PN ---
Subjective Progress Note Date: 06/20/22 Patient is pleasant 86-year-old with moderate to severe dementia had a mechanical fall. Patient does have history of COPD with oxygen lives with the her son with frequent visits from daughter. X-rays showed a displaced right femoral fracture. Patient's EKG showed some ST depressions but patient is going for surgery today initially wanted to order an echocardiogram to see the any wall motion abnormalities patient doesn't have any history of coronary artery disease patient is bit dehydrated with the elevated creatinine of 1.24 baseline creatinine is not available bun of 42 to patient does have leukocytosis. Patient denied any chest pain or shortness of breath at this time patient is on 2 L of oxygen which she wears at home 06/14/22. Patient seen and examined. Patient oxygen requirement increased this morning, had to be placed on 15 L of oxygen via Ventimask. Does not look in any respiratory distress on exam. Denies any chest pain. Case discussed with nursing staff 06/15/22. Patient seen and examined. Currently on 6 L of oxygen via nasal cannula. Respiratory status has improved compared to yesterday. Patient continues to be lethargic. Currently waiting on speech evaluation. 06/16. Patient seen and examined. Currently sitting upright in the bed. Going for swallow study today. Respiratory status has improved compared to yesterday 06/17. Patient seen and examined. Continues to improve. Oxygen requirements are at 4 L. Denies any shortness of breath. Currently on modified diet 06/18. Patient seen and examined. Lethargic this morning. Nursing staff has also noticed that the patient is retaining urine. Currently on bladder management per protocol. Continues to be on 4 L of oxygen 06/19. Patient seen and examined. Labs reviewed. Patient is doing much better, more responsive, does not look in acute distress. Shortness of breath is improving. 06/20. Patient seen and examined. Continues to feel better. Currently on 3 L of oxygen. REVIEW OF SYSTEMS: CONSTITUTIONAL: No fever, no malaise,. CARDIOVASCULAR: No chest pain, no palpitations, no syncope. PULMONARY: no cough, GASTROINTESTINAL: No diarrhea, no nausea, no vomiting, no abdominal pain. NEUROLOGICAL: No headaches, no weakness, PHYSICAL EXAMINATION: GENERAL: The patient is alert , not in any acute distress. Well developed, well nourished. HEENT: Pupils are round and equally reacting to light. EOMI. No scleral icterus. No conjunctival pallor. Normocephalic, atraumatic. No pharyngeal erythema. No thyromegaly. CARDIOVASCULAR: S1 and S2 present. No murmurs, rubs, or gallops. PULMONARY: Coarse breath some bilaterally ABDOMEN: Soft, nontender, nondistended, normoactive bowel sounds. No palpable organomegaly. MUSCULOSKELETAL: No joint swelling or deformity. Right hip surgical scar seen NEUROLOGICAL: Gross neurological examination did not reveal any focal deficits. SKIN: No rashes. Assessment and plan Acute hypoxic respiratory failure Bacterial pneumonia Elevated troponin Status post right hip hemiarthroplasty -Leukocytosis MARIA ELENA -COPD -Hypertension hypothyroidism Plan; Continue oxygen supplementation. Aggressive bronchopulmonary hygiene Aspiration precautions Follow-up on speech study,. VFSS done, currently on dysphagia diet 2-D echo done shows LVEF of 5560 percent, mild mitral regurg, mild tricuspid regurg, no pleural effusion chest x-ray noted, shows bilateral lower lobe infiltrate. CT chest shows the following Bilateral atelectasis with complete atelectasis of the left lower lobe and partial right lower lobe. Specified airways are seen within these lobes correlate for retained secretions/aspiration Continue IV Zosyn. Follow-up on pulmonary recommendations follow-up with cardiology recommendations Orthopedics has cleared the patient for discharge, required Lovenox for DVT prophylaxis Possible discharge in the morning Objective - Vital Signs Vital signs: Vital Signs Temp 97.7 F 06/20/22 13:17 Pulse 84 06/20/22 13:17 Resp 20 06/20/22 13:17 BP 128/63 06/20/22 13:17 Pulse Ox 91 L 06/20/22 13:17 FiO2 100 06/15/22 07:48 Intake & Output 06/19/22 06/20/22 06/20/22 18:59 06:59 18:59 Intake Total 200 Output Total 600 850 Balance -600 -850 200 Intake: Oral 200 Output: Urine 600 850 Other: Voiding Method Diaper Incontinent Indwelling Catheter # Bowel Movements 1 - Labs CBC & Chem 7: 06/20/22 06:03 06/20/22 06:03 Labs: Abnormal Lab Results - Last 24 Hours (Table) 06/19/22 06/19/22 06/20/22 Range/Units 16:39 20:14 05:50 RBC (3.80-5.40) m/uL Hgb (11.4-16.0) gm/dL Hct (34.0-46.0) % MCHC (31.0-37.0) g/dL Chloride (98-107) mmol/L BUN (7-17) mg/dL Creatinine (0.52-1.04) mg/dL Glucose (74-99) mg/dL POC Glucose (mg/dL) 138 H 213 H 115 H (70-110) mg/dL Total Protein (6.3-8.2) g/dL Albumin (3.5-5.0) g/dL 06/20/22 06/20/22 06/20/22 Range/Units 06:03 06:03 06:44 RBC 2.49 L (3.80-5.40) m/uL Hgb 7.5 L (11.4-16.0) gm/dL Hct 24.4 L (34.0-46.0) % MCHC 30.6 L (31.0-37.0) g/dL Chloride 111 H (98-107) mmol/L BUN 26 H (7-17) mg/dL Creatinine 1.24 H (0.52-1.04) mg/dL Glucose 104 H (74-99) mg/dL POC Glucose (mg/dL) 111 H (70-110) mg/dL Total Protein 4.3 L (6.3-8.2) g/dL Albumin 2.3 L (3.5-5.0) g/dL 06/20/22 Range/Units 11:12 RBC (3.80-5.40) m/uL Hgb (11.4-16.0) gm/dL Hct (34.0-46.0) % MCHC (31.0-37.0) g/dL Chloride (98-107) mmol/L BUN (7-17) mg/dL Creatinine (0.52-1.04) mg/dL Glucose (74-99) mg/dL POC Glucose (mg/dL) 188 H (70-110) mg/dL Total Protein (6.3-8.2) g/dL Albumin (3.5-5.0) g/dL
--- NOTE | 2022-06-20 14:54 | P.PN ---
Subjective Progress Note Date: 06/20/22 86-year-old female patient is being seen for hypoxemia following a hip surgery. The patient presented to the hospital because of a displaced right femoral fracture and the patient was taken to the operating room yesterday and the patient underwent ORIF and today she is postop day #1. Note that the patient's oxygen requirement progressively got worse. Initially she was on 2 L and currently she is on a 15 L of oxygen through a nonrebreather facemask. She does not seem to be in significant respiratory distress. The pulmonary consultation was requested accordingly. Chest x-ray showed opacification lung bases worse on the right and the patient has probably some atelectatic changes in the right brit ng base. An underlying effusion cannot be completely excluded. She is known to have advanced COPD and she is oxygen dependent and she lives with her son. No fever. No chills. Blood gas fro today and this was done on a FiO2 of unknown showed a pH of 7.34 with a pCO2 of 37 and pO2 of 50. I believe this was done an FiO2 of 45-50%. Her d-dimer is expectedly elevated at 3.41 following a orthoped ic surgery. The white cell count from yesterday or today is at 12.5 with a hemoglobin of 9.8 and a platelet count of 152. The rest of the blood work shows a BUN of 34 with a creatinine of 1.6 and a sodium level of 143. The glucose at 181. Troponins are 0.0 44. UA was negative. CPK was 323. The patient is seen today 06/15/2022 in follow-up on the regular medical floor. She is currently resting comfortably in bed. Alert in no acute distress. She did undergo ORIF of the right hip. Postoperative day #2. He is currently maintaining O2 saturations up to 100% on nonrebreather mask. She's afebrile. Hemodynamically stable. Computed tomography scan of the chest revealed bilateral atelectasis with complete atelectasis of the left lower lobe and partial right lower lobe. Opacified areas are seen within is correlate for retained secretions/aspiration. Atelectasis. Moderate severe coronary artery atherosclerosis. Today's chest x-ray reveals slight decrease in retrocardiac consolidation with improved aeration in the right lung. Small effusion. COPD changes. White count 11.2. Hemoglobin 8.1. Platelets 145. Sodium 146. Potassium 4.3. BUN 52. Creatinine 2.3. Glucose 141. Calcitonin 3.75. She is continued on DuoNeb inhalations. Lovenox for DVT prophylaxis. Antibiotics in the form of Zosyn. Attempting to work with the incentive spirometer. The patient is seen today 06/16/2022 in follow-up on the regular medical floor. She is currently sitting up in bed. Awake and alert in no acute distress. Denies any worsening shortness of breath, cough or congestion. Currently maintaining O2 saturations in the mid 90s on 4 L/m per nasal cannula. She did undergo a barium swallow which revealed a normal study. No evidence of aspiration or penetration. White count 9.0. Hemoglobin 8.6. Platelets 162. Sodium 151. Potassium 3.9. BUN 52. Creatinine 1.7. Glucose 129. She is currently on normal saline at 75 ML's per hour. She remains on DuoNeb inhalations, Robitussin, antibiotics in the form of Zosyn. On 06/17/2022, clinically the patient is unchanged. Repeat chest x-ray was done today and the patient showed decreasing in retrocardiac opacity on the left and there is some chronic and this is a changes. Nevertheless, the bottom status is improved and the retrocardiac opacity is also improved. The patient has no specific complaints. The patient remains on Lovenox for DVT prophylaxis. The patient on IV Zosyn. No reported aspiration for now. Tolerating diet. Pain is under good control. Surgical one-sided striking and intact. The patient is postoperative day #4 following an ORIF of a hip fracture. The residual is at 7.2 with hemoglobin 7.8, sodium is at 149 and a potassium level of 3.7 with a BMI 51 and a creatinine of 1.6. Motor the patient is also IV fluids. Is on normal saline at rate of 75 an hour. 06/18/2022, the patient seen for a follow-up. The patient is postop day #5. The patient underwent ORIF of the hip. On today's evaluation, the patient is on 4 L of oxygen by nasal cannula. The patient is using the incentive spirometer. The patient on IV Zosyn. At times, the patient was found to be lethargic. The patient also found to be somewhat confused. Family the bedside. The patient had a CAT scan of the chest that showed right-sided pleural effusion and right basilar atelectasis. Patient's coughing mechanism is extremely poor. She is not doing what efforts with pulmonary toileting. Remains on IV Zosyn. 06/19/2022, the patient is doing well. She is using the incentive spirometer. She is postop day #6 following her right hip ORIF. Surgical 1 site remains dry. The patient remains on IV Zosyn. She has a congested cough. Minimal amounts of sputum production. She had she is trying and she has been trying to expectorate mucus. Her coughing efforts of minimal at this point in time. She remains on Lovenox 30 mg subcu for deep prophylaxis. No issues with pain. Tolerating diet. Family was at the bedside. No new complaints otherwise for now. The white cell count of 7.12. Hemoglobin 7.5. BUN is 26 with a creatinine 1.1 and sodium levels of 140. 06/20/2022, patient is more interactive and awake and alert. She is on 3 L of oxygen by nasal cannula. She is using the incentive spirometer. She has family at the bedside. She has no new complaints. She is postop day #7 following her hip surgery. She is afebrile. She is hemodynamically stable. Surgical one- sided dry clean and intact. The white cell count at 7.6 with a hemoglobin of 7.5. Urine is a 26 with a creatinine 1.2 and a sodium level is at 138. The patient has been on Zosyn as an empiric antibiotic coverage. She is on Lovenox for deep prophylaxis. Objective - Vital Signs Vital signs: Vital Signs Temp 97.7 F 06/20/22 13:17 Pulse 84 06/20/22 13:17 Resp 20 06/20/22 13:17 BP 128/63 06/20/22 13:17 Pulse Ox 91 L 06/20/22 13:17 FiO2 100 06/15/22 07:48 Intake & Output 06/19/22 06/20/22 06/20/22 18:59 06:59 18:59 Intake Total 200 Output Total 600 850 Balance -600 -850 200 Intake: Oral 200 Output: Urine 600 850 Other: Voiding Method Diaper Incontinent Indwelling Catheter # Bowel Movements 1 - Exam GENERAL: The patient is a very [id number] female patient, alert and oriented x3, not in any acute distress. The patient is currently on 4 L/m per nasal cannula. The breathing is nonlabored. Head exam was generally normal. There was no scleral icterus or corneal arcus. Mucous membranes were moist. Edentulous HEENT: Pupils are round and equally reacting to light. EOMI. No scleral icterus. No conjunctival pallor. Normocephalic, atraumatic. No pharyngeal erythema. No thyromegaly. CARDIOVASCULAR: S1 and S2 present. No murmurs, rubs, or gallops. PULMONARY: Minimal coarse breath sounds bilaterally with faint crackles in the bases ABDOMEN: Soft, nontender, nondistended, normoactive bowel sounds. No palpable organomegaly. MUSCULOSKELETAL: No joint swelling or deformity. EXTREMITIES: No cyanosis, clubbing, or pedal edema. NEUROLOGICAL: Gross neurological examination did not reveal any focal deficits. - Labs CBC & Chem 7: 06/20/22 06:03 06/20/22 06:03 Labs: Abnormal Lab Results - Last 24 Hours (Table) 06/19/22 06/19/22 06/20/22 Range/Units 16:39 20:14 05:50 RBC (3.80-5.40) m/uL Hgb (11.4-16.0) gm/dL Hct (34.0-46.0) % MCHC (31.0-37.0) g/dL Chloride (98-107) mmol/L BUN (7-17) mg/dL Creatinine (0.52-1.04) mg/dL Glucose (74-99) mg/dL POC Glucose (mg/dL) 138 H 213 H 115 H (70-110) mg/dL Total Protein (6.3-8.2) g/dL Albumin (3.5-5.0) g/dL 06/20/22 06/20/22 06/20/22 Range/Units 06:03 06:03 06:44 RBC 2.49 L (3.80-5.40) m/uL Hgb 7.5 L (11.4-16.0) gm/dL Hct 24.4 L (34.0-46.0) % MCHC 30.6 L (31.0-37.0) g/dL Chloride 111 H (98-107) mmol/L BUN 26 H (7-17) mg/dL Creatinine 1.24 H (0.52-1.04) mg/dL Glucose 104 H (74-99) mg/dL POC Glucose (mg/dL) 111 H (70-110) mg/dL Total Protein 4.3 L (6.3-8.2) g/dL Albumin 2.3 L (3.5-5.0) g/dL 06/20/22 Range/Units 11:12 RBC (3.80-5.40) m/uL Hgb (11.4-16.0) gm/dL Hct (34.0-46.0) % MCHC (31.0-37.0) g/dL Chloride (98-107) mmol/L BUN (7-17) mg/dL Creatinine (0.52-1.04) mg/dL Glucose (74-99) mg/dL POC Glucose (mg/dL) 188 H (70-110) mg/dL Total Protein (6.3-8.2) g/dL Albumin (3.5-5.0) g/dL Assessment and Plan Assessment: Acute on chronic hypoxic respiratory failure. Currently on 4 liters nasal cannul. There is slight improvement in the chest x-ray. Computed tomography scan of the chest revealed bilateral atelectasis with complete atelectasis of the left lower lobe and partial of the right lower lobe. Opacified airways are seen within the slopes correlate for retained secretions/aspiration. Atelectasis likely with postobstructive atelectasis. She is continued on bronchodilators and Zosyn. Educated with the incentive spirometer. The chest x- ray is improving. Oxygenation is stable at 3L O2 nasal cannula. D-dimer, nonspecific elevation secondary to orthopedic surgery and femur fracture Right femur fracture post-ORIF and the patient is postop day #6 Hypernatremia, improving COPD Chronic hypoxic respiratory failure Dementia Impaired hearing/deafness Chronic kidney disease stage 2-3 Diabetes mellitus Mild hyponatremia Plan: Condition is stable Oxygen stable at 3 L White cell count nonelevated Hemoglobin stable at 7.5 Creatinine is also stable Continue same treatment plan Fluids to KVO Encourage use of incentive spirometer Tolerating a diet Continue with Lovenox for DVT prophylaxis 30 mg subcu on a daily basis Increase her activity as tolerated We will continue to follow Long-term prognosis poor based above-mentioned comorbidities May switched to Augmentin at the time of discharge to complete a seven-day course. Pulmonary critical care services will sign off
[2022-06-20] MEDS: ACETAMINOPHEN TAB 325 MG TAB PO PRN (16:15)
[2022-06-20 16:29] LABS: Glucose,Whole Blood 131 mg/dL (70-110)
[2022-06-20] MEDS: IPRATROPIUM-ALBUTEROL 3 ML NEB INHALATION PRN (20:06)
[2022-06-20] MEDS ORDERED: FUROSEMIDE 10 MG/ML 4 ML VIAL IV STA (20:19)
[2022-06-20] MEDS: GABAPENTIN 100 MG CAP PO SCH (20:47)
[2022-06-20] MEDS: SENNOSIDES-DOCUSATE SODIUM 1 EACH TAB PO SCH (20:47)
[2022-06-20 20:51] LABS: Glucose,Whole Blood 198 mg/dL (70-110)
[2022-06-21] MEDS: IPRATROPIUM-ALBUTEROL 3 ML NEB INHALATION PRN ×4 (05:40→15:47)
--- NOTE | 2022-06-21 06:12 | XR ---
EXAMINATION TYPE: XR chest 1V portable DATE OF EXAM: 06/21/2022 CLINICAL HISTORY: Difficulty breathing progress study. Pleural effusion evaluation. TECHNIQUE: Single AP portable semiupright view of the chest is obtained. COMPARISON: Chest x-ray from 4 days earlier FINDINGS: Increasing bibasilar opacities are present. Cardiac silhouette size stable and within norm al limits with ectatic aortic knob redemonstrated. Osseous structures remain demineralized. IMPRESSION: Worsening small to borderline moderate sized bilateral pleural effusions and associated b ibasilar atelectasis and/or acute infiltrates.
[2022-06-21 06:24] LABS: Glucose,Whole Blood 160 mg/dL (70-110)
[2022-06-21] MEDS: LEVOTHYROXINE 50 MCG TAB PO SCH (06:43)
[2022-06-21] MEDS: ASPIRIN 81 MG PO SCH (09:10)
[2022-06-21] MEDS: ENOXAPARIN 30 MG/0.3 ML SYRINGE SQ SCH (09:10)
[2022-06-21] MEDS: PIPERACILLIN-TAZOBACTAM 3.375 GM in SODIUM CHLORIDE 0.9% 100 ML IVPB SCH ×2 (09:10→17:51)
[2022-06-21 11:21] LABS: African American GFR (CKD) 43 (>60 ml/min/1.73 sqM); Anion Gap 9 mmol/L; Blood Urea Nitrogen 25 mg/dL (7-17); Carbon Dioxide 31 mmol/L (22-30); Chloride 100 mmol/L (98-107); Glucose 155 mg/dL (74-99); Non-African American GFR(CKD) 37 (>60 ml/min/1.73 sqM); Potassium 3.8 mmol/L (3.5-5.1); Sodium 140 mmol/L (137-145)
[2022-06-21 11:37] LABS: Glucose,Whole Blood 160 mg/dL (70-110)
[2022-06-21] MEDS ORDERED: FUROSEMIDE 10 MG/ML 4 ML VIAL IV STA (12:17)
[2022-06-21] MEDS: FAMOTIDINE 20 MG TAB PO SCH (12:51)
--- NOTE | 2022-06-21 15:03 | P.PN ---
Subjective Progress Note Date: 06/21/22 86-year-old female patient is being seen for hypoxemia following a hip surgery. The patient presented to the hospital because of a displaced right femoral fracture and the patient was taken to the operating room yesterday and the patient underwent ORIF and today she is postop day #1. Note that the patient's oxygen requirement progressively got worse. Initially she was on 2 L and currently she is on a 15 L of oxygen through a nonrebreather facemask. She does not seem to be in significant respiratory distress. The pulmonary consultation was requested accordingly. Chest x-ray showed opacification lung bases worse on the right and the patient has probably some atelectatic changes in the right brit ng base. An underlying effusion cannot be completely excluded. She is known to have advanced COPD and she is oxygen dependent and she lives with her son. No fever. No chills. Blood gas fro today and this was done on a FiO2 of unknown showed a pH of 7.34 with a pCO2 of 37 and pO2 of 50. I believe this was done an FiO2 of 45-50%. Her d-dimer is expectedly elevated at 3.41 following a orthoped ic surgery. The white cell count from yesterday or today is at 12.5 with a hemoglobin of 9.8 and a platelet count of 152. The rest of the blood work shows a BUN of 34 with a creatinine of 1.6 and a sodium level of 143. The glucose at 181. Troponins are 0.0 44. UA was negative. CPK was 323. The patient is seen today 06/15/2022 in follow-up on the regular medical floor. She is currently resting comfortably in bed. Alert in no acute distress. She did undergo ORIF of the right hip. Postoperative day #2. He is currently maintaining O2 saturations up to 100% on nonrebreather mask. She's afebrile. Hemodynamically stable. Computed tomography scan of the chest revealed bilateral atelectasis with complete atelectasis of the left lower lobe and partial right lower lobe. Opacified areas are seen within is correlate for retained secretions/aspiration. Atelectasis. Moderate severe coronary artery atherosclerosis. Today's chest x-ray reveals slight decrease in retrocardiac consolidation with improved aeration in the right lung. Small effusion. COPD changes. White count 11.2. Hemoglobin 8.1. Platelets 145. Sodium 146. Potassium 4.3. BUN 52. Creatinine 2.3. Glucose 141. Calcitonin 3.75. She is continued on DuoNeb inhalations. Lovenox for DVT prophylaxis. Antibiotics in the form of Zosyn. Attempting to work with the incentive spirometer. The patient is seen today 06/16/2022 in follow-up on the regular medical floor. She is currently sitting up in bed. Awake and alert in no acute distress. Denies any worsening shortness of breath, cough or congestion. Currently maintaining O2 saturations in the mid 90s on 4 L/m per nasal cannula. She did undergo a barium swallow which revealed a normal study. No evidence of aspiration or penetration. White count 9.0. Hemoglobin 8.6. Platelets 162. Sodium 151. Potassium 3.9. BUN 52. Creatinine 1.7. Glucose 129. She is currently on normal saline at 75 ML's per hour. She remains on DuoNeb inhalations, Robitussin, antibiotics in the form of Zosyn. On 06/17/2022, clinically the patient is unchanged. Repeat chest x-ray was done today and the patient showed decreasing in retrocardiac opacity on the left and there is some chronic and this is a changes. Nevertheless, the bottom status is improved and the retrocardiac opacity is also improved. The patient has no specific complaints. The patient remains on Lovenox for DVT prophylaxis. The patient on IV Zosyn. No reported aspiration for now. Tolerating diet. Pain is under good control. Surgical one-sided striking and intact. The patient is postoperative day #4 following an ORIF of a hip fracture. The residual is at 7.2 with hemoglobin 7.8, sodium is at 149 and a potassium level of 3.7 with a BMI 51 and a creatinine of 1.6. Motor the patient is also IV fluids. Is on normal saline at rate of 75 an hour. 06/18/2022, the patient seen for a follow-up. The patient is postop day #5. The patient underwent ORIF of the hip. On today's evaluation, the patient is on 4 L of oxygen by nasal cannula. The patient is using the incentive spirometer. The patient on IV Zosyn. At times, the patient was found to be lethargic. The patient also found to be somewhat confused. Family the bedside. The patient had a CAT scan of the chest that showed right-sided pleural effusion and right basilar atelectasis. Patient's coughing mechanism is extremely poor. She is not doing what efforts with pulmonary toileting. Remains on IV Zosyn. 06/19/2022, the patient is doing well. She is using the incentive spirometer. She is postop day #6 following her right hip ORIF. Surgical 1 site remains dry. The patient remains on IV Zosyn. She has a congested cough. Minimal amounts of sputum production. She had she is trying and she has been trying to expectorate mucus. Her coughing efforts of minimal at this point in time. She remains on Lovenox 30 mg subcu for deep prophylaxis. No issues with pain. Tolerating diet. Family was at the bedside. No new complaints otherwise for now. The white cell count of 7.12. Hemoglobin 7.5. BUN is 26 with a creatinine 1.1 and sodium levels of 140. 06/20/2022, patient is more interactive and awake and alert. She is on 3 L of oxygen by nasal cannula. She is using the incentive spirometer. She has family at the bedside. She has no new complaints. She is postop day #7 following her hip surgery. She is afebrile. She is hemodynamically stable. Surgical one- sided dry clean and intact. The white cell count at 7.6 with a hemoglobin of 7.5. Urine is a 26 with a creatinine 1.2 and a sodium level is at 138. The patient has been on Zosyn as an empiric antibiotic coverage. She is on Lovenox for deep prophylaxis. The patient is seen today 06/21/2022 in follow-up on the regular medical floor. She is currently sitting up in a chair at the bedside. Awake and alert in no acute distress. He currently on 6 L high flow nasal cannula to maintain O2 saturations in the 90s. Chest x-ray reveals small to borderline moderate size bilateral pleural effusions and associated atelectasis. She was given Lasix last evening for worsening shortness of breath. Lung sounds remain diminished bilaterally. No edema. She is continued on antibiotics in the form of Zosyn. Sodium 140. Potassium 3.8. BUN 25. Creatinine 1.31. Glucose 155. ProBNP 1160. She is continued on DuoNeb inhalations. Lovenox for DVT prophylaxis. Objective - Vital Signs Vital signs: Vital Signs Temp 98.6 F 06/21/22 14:00 Pulse 94 06/21/22 14:00 Resp 18 06/21/22 14:00 BP 127/71 06/21/22 14:00 Pulse Ox 90 L 06/21/22 14:00 FiO2 100 06/15/22 07:48 Intake & Output 06/20/22 06/21/22 06/21/22 18:59 06:59 18:59 Intake Total 1280 Output Total 700 5550 900 Balance 580 -5550 -900 Intake: Oral 1280 Output: Urine 700 5550 900 Other: Voiding Method Diaper Diaper Incontinent Incontinent Indwelling Catheter Indwelling Catheter # Bowel Movements 1 - Exam GENERAL: The patient is a very pleasant 86-year-old female patient, alert and or iented x3, not in any acute distress. The patient is currently on 6 L/m per nasal cannula. The breathing is nonlabored. Head exam was generally normal. There was no scleral icterus or corneal arcus. Mucous membranes were moist. Edentulous HEENT: Pupils are round and equally reacting to light. EOMI. No scleral icterus. No conjunctival pallor. Normocephalic, atraumatic. No pharyngeal erythema. No t hyromegaly. CARDIOVASCULAR: S1 and S2 present. No murmurs, rubs, or gallops. PULMONARY: Minimal coarse breath sounds bilaterally, diminished in the bases ABDOMEN: Soft, nontender, nondistended, normoactive bowel sounds. No palpable organomegaly. MUSCULOSKELETAL: No joint swelling or deformity. EXTREMITIES: No cyanosis, clubbing, or pedal edema. NEUROLOGICAL: Gross neurological examination did not reveal any focal deficits. - Labs CBC & Chem 7: 06/20/22 06:03 06/21/22 10:26 Labs: Abnormal Lab Results - Last 24 Hours (Table) 06/20/22 06/20/22 06/21/22 Range/Units 16:27 20:50 06:22 Carbon Dioxide (22-30) mmol/L BUN (7-17) mg/dL Creatinine (0.52-1.04) mg/dL Glucose (74-99) mg/dL POC Glucose (mg/dL) 131 H 198 H 160 H (70-110) mg/dL 06/21/22 06/21/22 Range/Units 10:26 11:35 Carbon Dioxide 31 H (22-30) mmol/L BUN 25 H (7-17) mg/dL Creatinine 1.31 H (0.52-1.04) mg/dL Glucose 155 H (74-99) mg/dL POC Glucose (mg/dL) 160 H (70-110) mg/dL Assessment and Plan Assessment: Acute on chronic hypoxic respiratory failure. Currently on 6 liters nasal cannula. There is slight improvement in the chest x-ray. Computed tomography scan of the chest revealed bilateral atelectasis with complete atelectasis of the left lower lobe and partial of the right lower lobe. Opacified airways are seen within the slopes correlate for retained secretions/aspiration. Atelectasis likely with postobstructive atelectasis. She is continued on bronchodilators and Zosyn. Educated with the incentive spirometer. D-dimer, nonspecific elevation secondary to orthopedic surgery and femur fracture Right femur fracture post-ORIF on 06/13/2022 Hypernatremia, improved, currently 140 COPD Chronic hypoxic respiratory failure Dementia Impaired hearing/deafness Chronic kidney disease stage 2-3 Diabetes mellitus Plan: The patient was seen and evaluated Labs and medications reviewed Give additional Lasix 40 mg IVP 1 ProBNP today 1160 Check a pro-calcitonin Tolerating a diet Encourage the increased use of the incentive spirometer Titrate the FiO2 as tolerated Increase her activity as tolerated We will continue to follow I have personally seen and examined the patient, performed the documentation and the assessment and plan as written. Number of minutes spent on the visit: 10.
--- NOTE | 2022-06-21 15:34 | P.PN ---
Subjective Progress Note Date: 06/21/22 Patient is pleasant 86-year-old with moderate to severe dementia had a mechanical fall. Patient does have history of COPD with oxygen lives with the her son with frequent visits from daughter. X-rays showed a displaced right femoral fracture. Patient's EKG showed some ST depressions but patient is going for surgery today initially wanted to order an echocardiogram to see the any wall motion abnormalities patient doesn't have any history of coronary artery disease patient is bit dehydrated with the elevated creatinine of 1.24 baseline creatinine is not available bun of 42 to patient does have leukocytosis. Patient denied any chest pain or shortness of breath at this time patient is on 2 L of oxygen which she wears at home 06/14/22. Patient seen and examined. Patient oxygen requirement increased this morning, had to be placed on 15 L of oxygen via Ventimask. Does not look in any respiratory distress on exam. Denies any chest pain. Case discussed with nursing staff 06/15/22. Patient seen and examined. Currently on 6 L of oxygen via nasal cannula. Respiratory status has improved compared to yesterday. Patient continues to be lethargic. Currently waiting on speech evaluation. 06/16. Patient seen and examined. Currently sitting upright in the bed. Going for swallow study today. Respiratory status has improved compared to yesterday 06/17. Patient seen and examined. Continues to improve. Oxygen requirements are at 4 L. Denies any shortness of breath. Currently on modified diet 06/18. Patient seen and examined. Lethargic this morning. Nursing staff has also noticed that the patient is retaining urine. Currently on bladder management per protocol. Continues to be on 4 L of oxygen 06/19. Patient seen and examined. Labs reviewed. Patient is doing much better, more responsive, does not look in acute distress. Shortness of breath is improving. 06/20. Patient seen and examined. Continues to feel better. Currently on 3 L of oxygen. 06/21/2022 Patient sitting up in chair. Denies pain to right hip. Continues on nasal cannula with 6 L of oxygen, 91%. Not in acute distress. Received a dose of IV lasix 40 mg last night and again today. Continues on IV zosyn empirically. Creatinine today stable at 1.31. proBNP 1160 which is age appropriate. Chest xray today showing worsening bilateral pleural effusions and associated bibasilar atelectasis and or acute infiltrates. Continue to wean oxygen if tolerating. Review of Systems Constitutional: Denied any fatigue denied any fever. Cardio vascular: denied any chest pain, palpitations Gastrointestinal: denied any nausea, vomiting, diarrhea Pulmonary: Reports shortness of breath, cough Neurologic denied any new focal deficits All inpatient medications were reviewed and appropriate changes in these medications as dictated in the interval history and assessment and plan. PHYSICAL EXAMINATION: GENERAL: The patient is alert , not in any acute distress. Well developed, well nourished. Frail elderly. HEENT: Pupils are round and equally reacting to light. EOMI. No scleral icterus. No conjunctival pallor. Normocephalic, atraumatic. No pharyngeal erythema. No thyromegaly. Hard of hearing. CARDIOVASCULAR: S1 and S2 present. No murmurs, rubs, or gallops. PULMONARY: Coarse breath sounds bilaterally. ABDOMEN: Soft, nontender, nondistended, normoactive bowel sounds. No palpable organomegaly. MUSCULOSKELETAL: No joint swelling or deformity. Right hip surgical scar seen NEUROLOGICAL: Gross neurological examination did not reveal any focal deficits. Generalized diffuse weakness. SKIN: No rashes. Assessment and plan Acute on chronic hypoxic respiratory failure secondary to post obstructive atelectasis currently on 6L nasal cannula. Procalcitonin level pending rule out underlying bacterial pneumonia. Mild acute diastolic heart failure received IV lasix Elevated troponin Acute kidney injury mostly prerenal, improved. Status post right hip hemiarthroplasty Leukocytosis Chronic kidney disease stage 2 to 3 Chronic hypoxic respiratory failure COPD Hypertension hypothyroidism Diabetes Mellitus type 2 with hyperglycemia GI Prophylaxis DVT Prophyalxis Lovenox Full Code Plan; Continue oxygen supplementation. Aggressive bronchopulmonary hygiene Aspiration precautions, dysphagia diet Continue IV Zosyn. Follow-up on pulmonary recommendations IV lasix x 1 given today Orthopedics has cleared the patient for discharge, required Lovenox for DVT prophylaxis D/C subacute rehab possible in the next 24 to 48 hours The impression and plan of care has been dictated by Karen Yuan Nurse Practitioner as directed. Dr. Ramya MD I have performed a history and physical examination and medical decision making of this patient, discussed the same with the dictator, and agree with the dictators assessment and plan as written, documented as a scribe. Based on total visit time, I have performed more than 50% of this visit. Objective - Vital Signs Vital signs: Vital Signs Temp 97.8 F 06/21/22 08:00 Pulse 90 06/21/22 11:24 Resp 16 06/21/22 08:00 BP 122/61 06/21/22 08:00 Pulse Ox 91 L 06/21/22 08:00 FiO2 100 06/15/22 07:48 Intake & Output 06/20/22 06/21/22 06/21/22 18:59 06:59 18:59 Intake Total 1280 Output Total 700 5550 Balance 580 -5550 Intake: Oral 1280 Output: Urine 700 5550 Other: Voiding Method Diaper Incontinent Indwelling Catheter # Bowel Movements 1 - Labs CBC & Chem 7: 06/20/22 06:03 06/21/22 10:26 Labs: Abnormal Lab Results - Last 24 Hours (Table) 06/20/22 06/20/22 06/21/22 Range/Units 16:27 20:50 06:22 Carbon Dioxide (22-30) mmol/L BUN (7-17) mg/dL Creatinine (0.52-1.04) mg/dL Glucose (74-99) mg/dL POC Glucose (mg/dL) 131 H 198 H 160 H (70-110) mg/dL 06/21/22 06/21/22 Range/Units 10:26 11:35 Carbon Dioxide 31 H (22-30) mmol/L BUN 25 H (7-17) mg/dL Creatinine 1.31 H (0.52-1.04) mg/dL Glucose 155 H (74-99) mg/dL POC Glucose (mg/dL) 160 H (70-110) mg/dL Assessment and Plan Time with Patient: Less than 30
[2022-06-21 16:26] LABS: Glucose,Whole Blood 195 mg/dL (70-110)
--- NOTE | 2022-06-21 18:25 | CDI ---
Documentation Clarification Form Date: 06/21/2022 06:01:24 PM From: Shefali Rainey RN CCDS Admit Date: 06/12/2022 08:36:00 PM Patient Name: Brunilda Elizabeth Visit Number: [id number] Discharge Date: ATTENTION: The Clinical Documentation Specialists (CDI) and [facility] Coding Staff appreciate your assistance in clarifying documentation. Please respond to the clarification below the line at the bottom and electronically sign. The CDI & [facility] Coding staff will review the response and follow-up if needed. Please note: Queries are made part of the Legal Health Record. If you have any questions, please contact the author of this message via ITS. Dr. Bui The Registered Dietitian assessment on 06/14 documents that the patient has inadequate energy intake. Based on this information and the findings below, is there an additional diagnosis that is clinically appropriate for this patient? History/Risk Factors: 86-year-old female presents to the ED after sustaining a fall at home outside. Medical history: COPD, DM and Renal disease. 06/21, H&P. Clinical Indicators: Admitting diagnosis: Right hip fracture with repair; DM, HTN and Dementia RD Consult Assessment: 06/18 Below Current BMI: 17.4 Hgt 5ft 2in; Wgt 43.091kg Underweight Physical Findings: skin intact Estimated Nutritional Needs; current weight used: Needs in Kcals: 1600 Kcal: MSJ X 1.3 + 500 wgt gain, and additional lung hypermetabolic needs. Estimated protein Range 1 1.25g/kg related to adult maintenance VS CKD Estimated protein Needs 43-54 grams/ day. Will monitor renal fcn and adjust protein needs as needed Fluid needs 1ml/Kcal day 1600 Inadequate energy intake: Related to NPO w/ increased metabolic needs for COPD. NPO for labs/testing: AECOPD and requiring BiPAP. Controlled blood sugar: Meeting 75% of estimated nutritional needs. Treatment: Consistent CHO diet, chopped. Texture-modified diet; Carbohydrate- modified diet. Dietary Consult: See above Supplements: Glucerna BID Monitor: Supplement and Oral intake. Lab monitoring: Chemistry Is there an additional diagnosis that is clinically appropriate for this patient? [ ] Moderate Protein-Calorie Malnutrition [ ] Severe Protein-Calorie Malnutrition [ x ] Other condition, please specify Not malnurished [ ] Unable to Determine (Template Last Revised: September 2020) MTDD
[2022-06-21 20:34] LABS: Glucose,Whole Blood 196 mg/dL (70-110)
[2022-06-21] MEDS: SENNOSIDES-DOCUSATE SODIUM 1 EACH TAB PO SCH (22:07)
[2022-06-21] MEDS: GABAPENTIN 100 MG CAP PO SCH (22:07)
[2022-06-22] MEDS: PIPERACILLIN-TAZOBACTAM 3.375 GM in SODIUM CHLORIDE 0.9% 100 ML IVPB SCH ×4 (00:14→23:26)
[2022-06-22 06:36] LABS: Glucose,Whole Blood 150 mg/dL (70-110)
[2022-06-22] MEDS: LEVOTHYROXINE 50 MCG TAB PO SCH (06:53)
[2022-06-22] MEDS: ENOXAPARIN 30 MG/0.3 ML SYRINGE SQ SCH (08:24)
[2022-06-22] MEDS: ASPIRIN 81 MG PO SCH (08:25)
[2022-06-22] MEDS: FAMOTIDINE 20 MG TAB PO SCH (08:25)
[2022-06-22] MEDS: IPRATROPIUM-ALBUTEROL 3 ML NEB INHALATION PRN (08:52)
[2022-06-22 10:30] LABS: Basophils # (A) 0.07 X 10*3/uL (0.00-0.10); Basophils % (A) 0.8 %; Eosinophils # (A) 0.15 X 10*3/uL (0.04-0.35); Eosinophils % (A) 1.7 %; HCT 26.2 % (37.2-46.3); HGB 8.3 g/dL (12.0-15.0); Immature Grans, Automated 0.6 %; Lymphocytes # (A) 1.43 X 10*3/uL (0.90-5.00); Lymphocytes % (A) 16.2 %; MCH 29.9 pg (27.0-32.0); MCHC 31.7 g/dL (32.0-37.0); MCV 94.2 fL (80.0-97.0); Mean Platelet Volume 11.6 fL (9.5-12.2); Monocytes # (A) 0.64 X 10*3/uL (0.20-1.00); Monocytes % (A) 7.2 %; NRBC Per 100 WBC 0 /100 WBCS (0.0-0.0); Neutrophils # (A) 6.49 X 10*3/uL (1.80-7.70); Neutrophils % (A) 73.5 %; Platelet Count 266 X 10*3/uL (140-440); RBC 2.78 X 10*6/uL (4.10-5.20); RDW 14.3 % (11.5-14.5); WBC 8.83 X 10*3/uL (4.50-10.00)
[2022-06-22 10:58] LABS: African American GFR (CKD) 39.9 (60.0-200.0); Anion Gap 12.4 mmol/L (10.00-18.00); BUN/Creat Ratio 17.43 Ratio (12.00-20.00); Blood Urea Nitrogen 24.4 mg/dL (9.0-27.0); Carbon Dioxide 28.6 mmol/L (20.0-27.5); Non-African American GFR(CKD) 34.4 (60.0-200.0); Potassium 3.8 mmol/L (3.5-5.5)
[2022-06-22 11:40] LABS: Glucose,Whole Blood 154 mg/dL (70-110)
--- NOTE | 2022-06-22 13:21 | XR ---
EXAMINATION TYPE: XR chest 1V portable DATE OF EXAM: 06/22/2022 CLINICAL HISTORY: Difficulty breathing progress study. CHF and hypoxemia. TECHNIQUE: Single AP portable upright view of the chest is obtained. COMPARISON: Chest x-ray from one day earlier and older studies. FINDINGS: Persistent bibasilar opacities redemonstrated. Cardiac silhouette size stable and upper leon its of normal. Osseous structures remain demineralized. Underlying scoliosis is present. IMPRESSION: Stable small to borderline moderate sized bilateral pleural effusions and associated biba silar atelectasis and/or acute infiltrates.
[2022-06-22] MEDS ORDERED: FUROSEMIDE 10 MG/ML 4 ML VIAL IV STA (13:50)
--- NOTE | 2022-06-22 13:54 | P.PN ---
Subjective Progress Note Date: 06/22/22 86-year-old female patient is being seen for hypoxemia following a hip surgery. The patient presented to the hospital because of a displaced right femoral fracture and the patient was taken to the operating room yesterday and the patient underwent ORIF and today she is postop day #1. Note that the patient's oxygen requirement progressively got worse. Initially she was on 2 L and currently she is on a 15 L of oxygen through a nonrebreather facemask. She does not seem to be in significant respiratory distress. The pulmonary consultation was requested accordingly. Chest x-ray showed opacification lung bases worse on the right and the patient has probably some atelectatic changes in the right brit ng base. An underlying effusion cannot be completely excluded. She is known to have advanced COPD and she is oxygen dependent and she lives with her son. No fever. No chills. Blood gas fro today and this was done on a FiO2 of unknown showed a pH of 7.34 with a pCO2 of 37 and pO2 of 50. I believe this was done an FiO2 of 45-50%. Her d-dimer is expectedly elevated at 3.41 following a orthoped ic surgery. The white cell count from yesterday or today is at 12.5 with a hemoglobin of 9.8 and a platelet count of 152. The rest of the blood work shows a BUN of 34 with a creatinine of 1.6 and a sodium level of 143. The glucose at 181. Troponins are 0.0 44. UA was negative. CPK was 323. The patient is seen today 06/15/2022 in follow-up on the regular medical floor. She is currently resting comfortably in bed. Alert in no acute distress. She did undergo ORIF of the right hip. Postoperative day #2. He is currently maintaining O2 saturations up to 100% on nonrebreather mask. She's afebrile. Hemodynamically stable. Computed tomography scan of the chest revealed bilateral atelectasis with complete atelectasis of the left lower lobe and partial right lower lobe. Opacified areas are seen within is correlate for retained secretions/aspiration. Atelectasis. Moderate severe coronary artery atherosclerosis. Today's chest x-ray reveals slight decrease in retrocardiac consolidation with improved aeration in the right lung. Small effusion. COPD changes. White count 11.2. Hemoglobin 8.1. Platelets 145. Sodium 146. Potassium 4.3. BUN 52. Creatinine 2.3. Glucose 141. Calcitonin 3.75. She is continued on DuoNeb inhalations. Lovenox for DVT prophylaxis. Antibiotics in the form of Zosyn. Attempting to work with the incentive spirometer. The patient is seen today 06/16/2022 in follow-up on the regular medical floor. She is currently sitting up in bed. Awake and alert in no acute distress. Denies any worsening shortness of breath, cough or congestion. Currently maintaining O2 saturations in the mid 90s on 4 L/m per nasal cannula. She did undergo a barium swallow which revealed a normal study. No evidence of aspiration or penetration. White count 9.0. Hemoglobin 8.6. Platelets 162. Sodium 151. Potassium 3.9. BUN 52. Creatinine 1.7. Glucose 129. She is currently on normal saline at 75 ML's per hour. She remains on DuoNeb inhalations, Robitussin, antibiotics in the form of Zosyn. On 06/17/2022, clinically the patient is unchanged. Repeat chest x-ray was done today and the patient showed decreasing in retrocardiac opacity on the left and there is some chronic and this is a changes. Nevertheless, the bottom status is improved and the retrocardiac opacity is also improved. The patient has no specific complaints. The patient remains on Lovenox for DVT prophylaxis. The patient on IV Zosyn. No reported aspiration for now. Tolerating diet. Pain is under good control. Surgical one-sided striking and intact. The patient is postoperative day #4 following an ORIF of a hip fracture. The residual is at 7.2 with hemoglobin 7.8, sodium is at 149 and a potassium level of 3.7 with a BMI 51 and a creatinine of 1.6. Motor the patient is also IV fluids. Is on normal saline at rate of 75 an hour. 06/18/2022, the patient seen for a follow-up. The patient is postop day #5. The patient underwent ORIF of the hip. On today's evaluation, the patient is on 4 L of oxygen by nasal cannula. The patient is using the incentive spirometer. The patient on IV Zosyn. At times, the patient was found to be lethargic. The patient also found to be somewhat confused. Family the bedside. The patient had a CAT scan of the chest that showed right-sided pleural effusion and right basilar atelectasis. Patient's coughing mechanism is extremely poor. She is not doing what efforts with pulmonary toileting. Remains on IV Zosyn. 06/19/2022, the patient is doing well. She is using the incentive spirometer. She is postop day #6 following her right hip ORIF. Surgical 1 site remains dry. The patient remains on IV Zosyn. She has a congested cough. Minimal amounts of sputum production. She had she is trying and she has been trying to expectorate mucus. Her coughing efforts of minimal at this point in time. She remains on Lovenox 30 mg subcu for deep prophylaxis. No issues with pain. Tolerating diet. Family was at the bedside. No new complaints otherwise for now. The white cell count of 7.12. Hemoglobin 7.5. BUN is 26 with a creatinine 1.1 and sodium levels of 140. 06/20/2022, patient is more interactive and awake and alert. She is on 3 L of oxygen by nasal cannula. She is using the incentive spirometer. She has family at the bedside. She has no new complaints. She is postop day #7 following her hip surgery. She is afebrile. She is hemodynamically stable. Surgical one- sided dry clean and intact. The white cell count at 7.6 with a hemoglobin of 7.5. Urine is a 26 with a creatinine 1.2 and a sodium level is at 138. The patient has been on Zosyn as an empiric antibiotic coverage. She is on Lovenox for deep prophylaxis. The patient is seen today 06/21/2022 in follow-up on the regular medical floor. She is currently sitting up in a chair at the bedside. Awake and alert in no acute distress. He currently on 6 L high flow nasal cannula to maintain O2 saturations in the 90s. Chest x-ray reveals small to borderline moderate size bilateral pleural effusions and associated atelectasis. She was given Lasix last evening for worsening shortness of breath. Lung sounds remain diminished bilaterally. No edema. She is continued on antibiotics in the form of Zosyn. Sodium 140. Potassium 3.8. BUN 25. Creatinine 1.31. Glucose 155. ProBNP 1160. She is continued on DuoNeb inhalations. Lovenox for DVT prophylaxis. The patient is seen today 06/22/2022 in follow-up on the regular medical floor. She is currently sitting up in a chair at the bedside. Awake and alert in no acute distress. Remains on 6 L high flow nasal cannula with O2 saturation low 90s. She's afebrile. Hemodynamically stable. Lungs sounds with crackles in the bilateral bases. She did respond well with a -5 L balance from Lasix yesterday. Chest x-ray continues to show persistent bibasilar small to moderate pleural effusions. An additional 40 mg of Lasix IV will be given today. White count 8.8. Hemoglobin 8.3. Sodium 141. Potassium 3.8. BUN 24. Creatinine 1.4. Glucose 128. Objective - Vital Signs Vital signs: Vital Signs Temp 98.7 F 06/22/22 07:58 Pulse 78 06/22/22 09:03 Resp 20 06/22/22 07:58 BP 127/63 06/22/22 07:58 Pulse Ox 90 L 06/22/22 08:52 FiO2 100 06/15/22 07:48 Intake & Output 06/21/22 06/22/22 06/22/22 18:59 06:59 18:59 Intake Total 1080 Output Total 1500 Balance -420 Intake: Oral 1080 Output: Urine 1500 Other: Voiding Method Diaper Diaper Diaper Incontinent Indwelling Catheter Incontinent Indwelling Catheter - Exam GENERAL: The patient is a very pleasant 86-year-old female patient, up in a chair at the bedside, alert and oriented x3, not in any acute distress. The patient is currently on 6 L/m per nasal cannula. The breathing is nonlabored. Head exam was generally normal. There was no scleral icterus or corneal arcus. Mucous membranes were moist. Edentulous HEENT: Pupils are round and equally reacting to light. EOMI. No scleral icterus. No conjunctival pallor. Normocephalic, atraumatic. No pharyngeal erythema. No thyromegaly. CARDIOVASCULAR: S1 and S2 present. No murmurs, rubs, or gallops. PULMONARY: Lungs sounds with crackles in the bilateral bases, diminished in the bases ABDOMEN: Soft, nontender, nondistended, normoactive bowel sounds. No palpable organomegaly. MUSCULOSKELETAL: No joint swelling or deformity. EXTREMITIES: No cyanosis, clubbing, or pedal edema. NEUROLOGICAL: Gross neurological examination did not reveal any focal deficits. - Labs CBC & Chem 7: 06/22/22 06:29 06/22/22 06:29 Labs: Abnormal Lab Results - Last 24 Hours (Table) 06/21/22 06/21/22 06/21/22 Range/Units 13:13 16:25 20:33 RBC (4.10-5.20) X 10*6/uL Hgb (12.0-15.0) g/dL Hct (37.2-46.3) % MCHC (32.0-37.0) g/dL Immature Gran # (0.00-0.04) X 10*3/uL Carbon Dioxide (20.0-27.5) mmol/L Est GFR (CKD-EPI)AfAm (60.0-200.0) Est GFR (CKD-EPI)NonAf (60.0-200.0) Glucose (70-110) mg/dL POC Glucose (mg/dL) 195 H 196 H (70-110) mg/dL Procalcitonin 0.36 H (0.02-0.09) ng/mL 06/22/22 06/22/22 06/22/22 Range/Units 06:29 06:29 06:35 RBC 2.78 L (4.10-5.20) X 10*6/uL Hgb 8.3 L (12.0-15.0) g/dL Hct 26.2 L (37.2-46.3) % MCHC 31.7 L (32.0-37.0) g/dL Immature Gran # 0.05 H (0.00-0.04) X 10*3/uL Carbon Dioxide 28.6 H (20.0-27.5) mmol/L Est GFR (CKD-EPI)AfAm 39.9 L (60.0-200.0) Est GFR (CKD-EPI)NonAf 34.4 L (60.0-200.0) Glucose 128 H (70-110) mg/dL POC Glucose (mg/dL) 150 H (70-110) mg/dL Procalcitonin (0.02-0.09) ng/mL 06/22/22 Range/Units 11:36 RBC (4.10-5.20) X 10*6/uL Hgb (12.0-15.0) g/dL Hct (37.2-46.3) % MCHC (32.0-37.0) g/dL Immature Gran # (0.00-0.04) X 10*3/uL Carbon Dioxide (20.0-27.5) mmol/L Est GFR (CKD-EPI)AfAm (60.0-200.0) Est GFR (CKD-EPI)NonAf (60.0-200.0) Glucose (70-110) mg/dL POC Glucose (mg/dL) 154 H (70-110) mg/dL Procalcitonin (0.02-0.09) ng/mL Assessment and Plan Assessment: Acute on chronic hypoxic respiratory failure. Currently on 6 liters nasal cannula. There is slight improvement in the chest x-ray. Computed tomography scan of the chest revealed bilateral atelectasis with complete atelectasis of the left lower lobe and partial of the right lower lobe. Opacified airways are seen within the slopes correlate for retained secretions/aspiration. Atelectasis likely with postobstructive atelectasis. Pro-calcitonin 0.36. She is continued on bronchodilators and Zosyn. Educated with the incentive spirometer. Chest x-ray is also showing bilateral pleural effusions. Responding well to IV diuretics. D-dimer, nonspecific elevation secondary to orthopedic surgery and femur fracture Right femur fracture post-ORIF on 06/13/2022 Hypernatremia, improved, currently 140 COPD Chronic hypoxic respiratory failure Dementia Impaired hearing/deafness Chronic kidney disease stage 2-3 Diabetes mellitus Plan: The patient was seen and evaluated Chest x-ray, Labs and medications reviewed Give additional Lasix 40 mg IVP 1 Encourage the increased use of the incentive spirometer Titrate the FiO2 as tolerated Plan will be for discharge to [facility] hopefully tomorrow We will continue to follow I have personally seen and examined the patient, performed the documentation and the assessment and plan as written. Number of minutes spent on the visit: 10.
[2022-06-22] MEDS ORDERED: methylPREDNISolone SOD SUCCI 40 MG/ML 1 ML VIAL IV STA (14:41)
--- NOTE | 2022-06-22 14:48 | P.PN ---
Subjective Progress Note Date: 06/22/22 Patient is pleasant 86-year-old with moderate to severe dementia had a mechanical fall. Patient does have history of COPD with oxygen lives with the her son with frequent visits from daughter. X-rays showed a displaced right femoral fracture. Patient's EKG showed some ST depressions but patient is going for surgery today initially wanted to order an echocardiogram to see the any wall motion abnormalities patient doesn't have any history of coronary artery disease patient is bit dehydrated with the elevated creatinine of 1.24 baseline creatinine is not available bun of 42 to patient does have leukocytosis. Patient denied any chest pain or shortness of breath at this time patient is on 2 L of oxygen which she wears at home 06/14/22. Patient seen and examined. Patient oxygen requirement increased this morning, had to be placed on 15 L of oxygen via Ventimask. Does not look in any respiratory distress on exam. Denies any chest pain. Case discussed with nursing staff 06/15/22. Patient seen and examined. Currently on 6 L of oxygen via nasal cannula. Respiratory status has improved compared to yesterday. Patient continues to be lethargic. Currently waiting on speech evaluation. 06/16. Patient seen and examined. Currently sitting upright in the bed. Going for swallow study today. Respiratory status has improved compared to yesterday 06/17. Patient seen and examined. Continues to improve. Oxygen requirements are at 4 L. Denies any shortness of breath. Currently on modified diet 06/18. Patient seen and examined. Lethargic this morning. Nursing staff has also noticed that the patient is retaining urine. Currently on bladder management per protocol. Continues to be on 4 L of oxygen 06/19. Patient seen and examined. Labs reviewed. Patient is doing much better, more responsive, does not look in acute distress. Shortness of breath is improving. 06/20. Patient seen and examined. Continues to feel better. Currently on 3 L of oxygen. 06/21/2022 Patient sitting up in chair. Denies pain to right hip. Continues on nasal cannula with 6 L of oxygen, 91%. Not in acute distress. Received a dose of IV lasix 40 mg last night and again today. Continues on IV zosyn empirically. Creatinine today stable at 1.31. proBNP 1160 which is age appropriate. Chest xray today showing worsening bilateral pleural effusions and associated bibasilar atelectasis and or acute infiltrates. Continue to wean oxygen if tolerating. 06/22/2022 Patient sitting up in chair today, reports no acute events overnight. Continues on 6L of oxygen via nasal cannula, Daughter at bedside reports that she does not wear oxygen at home. Patient reports continued nicotine use at home as well. She has diuresed well with 2 doses of IV lasix with 5L documented off. Currently using IS and achieving 750 she is encouraged to use frequently. Chest xray has been repeated today showing small to borderline moderate bilateral pleural effusions and associated bibasilar atelectasis, and or acute infiltrates. Continues on duonebs and IV zosyn. She does have scattered expiratory wheezing n oted on exam today, started on budesonide and will give a dose of IV steroids. Continue to wean oxygen as tolerated, discharge pending to subacute rehab if patient is able to maintain oxygen saturations on 4L nasal cannula. Creatinine is increased to 1.4 today. Review of Systems Constitutional: Denied any fatigue denied any fever. Cardio vascular: denied any chest pain, palpitations Gastrointestinal: denied any nausea, vomiting, diarrhea Pulmonary: Denies shortness of breath at rest, improving cough Neurologic denied any new focal deficits All inpatient medications were reviewed and appropriate changes in these medications as dictated in the interval history and assessment and plan. PHYSICAL EXAMINATION: GENERAL: The patient is alert , not in any acute distress. Well developed, well nourished. Frail elderly. HEENT: Pupils are round and equally reacting to light. EOMI. No scleral icterus. No conjunctival pallor. Normocephalic, atraumatic. No pharyngeal erythema. No thyromegaly. Hard of hearing. CARDIOVASCULAR: S1 and S2 present. No murmurs, rubs, or gallops. PULMONARY: Scattered expiratory wheezing ABDOMEN: Soft, nontender, nondistended, normoactive bowel sounds. No palpable organomegaly. MUSCULOSKELETAL: No joint swelling or deformity. Right hip surgical scar seen NEUROLOGICAL: Gross neurological examination did not reveal any focal deficits. Generalized diffuse weakness. SKIN: No rashes. Assessment and plan Acute on chronic hypoxic respiratory failure secondary to post obstructive atelectasis currently on 6L nasal cannula. Possible underlying bacterial pneumonia with procalcitonin 0.36. Mild acute diastolic heart failure received IV lasix COPD with acute exacerbation Elevated troponin Acute kidney injury mostly prerenal, Status post right hip hemiarthroplasty Leukocytosis Chronic kidney disease stage 2 to 3 Chronic hypoxic respiratory failure COPD Hypertension hypothyroidism Diabetes Mellitus type 2 with hyperglycemia GI Prophylaxis DVT Prophyalxis Lovenox Full Code Plan; Continue oxygen supplementation. Aggressive bronchopulmonary hygiene Aspiration precautions, dysphagia diet Continue IV Zosyn, duonebs IV lasix x 1 given today Orthopedics has cleared the patient for discharge, required Lovenox for DVT prophylaxis D/C subacute rehab possible in the next 24 to 48 hours The impression and plan of care has been dictated by Karen Yuan, Nurse Practitioner as directed. Dr. Ramya MD I have performed a history and physical examination and medical decision making of this patient, discussed the same with the dictator, and agree with the dictators assessment and plan as written, documented as a scribe. Based on total visit time, I have performed more than 50% of this visit. Objective - Vital Signs Vital signs: Vital Signs Temp 98.3 F 06/22/22 14:00 Pulse 88 06/22/22 14:00 Resp 20 06/22/22 14:00 BP 120/65 06/22/22 14:00 Pulse Ox 100 06/22/22 14:00 FiO2 100 06/15/22 07:48 Intake & Output 06/21/22 06/22/22 06/22/22 18:59 06:59 18:59 Intake Total 1080 Output Total 1500 Balance -420 Intake: Oral 1080 Output: Urine 1500 Other: Voiding Method Diaper Diaper Diaper Incontinent Indwelling Catheter Incontinent Indwelling Catheter - Labs CBC & Chem 7: 06/22/22 06:29 06/22/22 06:29 Labs: Abnormal Lab Results - Last 24 Hours (Table) 06/21/22 06/21/22 06/21/22 Range/Units 13:13 16:25 20:33 RBC (4.10-5.20) X 10*6/uL Hgb (12.0-15.0) g/dL Hct (37.2-46.3) % MCHC (32.0-37.0) g/dL Immature Gran # (0.00-0.04) X 10*3/uL Carbon Dioxide (20.0-27.5) mmol/L Est GFR (CKD-EPI)AfAm (60.0-200.0) Est GFR (CKD-EPI)NonAf (60.0-200.0) Glucose (70-110) mg/dL POC Glucose (mg/dL) 195 H 196 H (70-110) mg/dL Procalcitonin 0.36 H (0.02-0.09) ng/mL 06/22/22 06/22/22 06/22/22 Range/Units 06:29 06:29 06:35 RBC 2.78 L (4.10-5.20) X 10*6/uL Hgb 8.3 L (12.0-15.0) g/dL Hct 26.2 L (37.2-46.3) % MCHC 31.7 L (32.0-37.0) g/dL Immature Gran # 0.05 H (0.00-0.04) X 10*3/uL Carbon Dioxide 28.6 H (20.0-27.5) mmol/L Est GFR (CKD-EPI)AfAm 39.9 L (60.0-200.0) Est GFR (CKD-EPI)NonAf 34.4 L (60.0-200.0) Glucose 128 H (70-110) mg/dL POC Glucose (mg/dL) 150 H (70-110) mg/dL Procalcitonin (0.02-0.09) ng/mL 06/22/22 Range/Units 11:36 RBC (4.10-5.20) X 10*6/uL Hgb (12.0-15.0) g/dL Hct (37.2-46.3) % MCHC (32.0-37.0) g/dL Immature Gran # (0.00-0.04) X 10*3/uL Carbon Dioxide (20.0-27.5) mmol/L Est GFR (CKD-EPI)AfAm (60.0-200.0) Est GFR (CKD-EPI)NonAf (60.0-200.0) Glucose (70-110) mg/dL POC Glucose (mg/dL) 154 H (70-110) mg/dL Procalcitonin (0.02-0.09) ng/mL Assessment and Plan Time with Patient: Less than 30
[2022-06-22] MEDS: IPRATROPIUM-ALBUTEROL 3 ML NEB INHALATION SCH ×2 (16:04→21:46)
[2022-06-22 16:25] LABS: Glucose,Whole Blood 173 mg/dL (70-110)
[2022-06-22 20:25] LABS: Glucose,Whole Blood 275 mg/dL (70-110)
[2022-06-22] MEDS: SENNOSIDES-DOCUSATE SODIUM 1 EACH TAB PO SCH (21:44)
[2022-06-22] MEDS: GABAPENTIN 100 MG CAP PO SCH (21:44)
[2022-06-22] MEDS: BUDESONIDE 0.5 MG/2 ML NEBU INHALATION SCH (21:46)
[2022-06-23 02:17] VITALS: RESP 18
[2022-06-23] MEDS: LEVOTHYROXINE 50 MCG TAB PO SCH (05:19)
[2022-06-23 06:06] LABS: Glucose,Whole Blood 112 mg/dL (70-110)
[2022-06-23] MEDS: BUDESONIDE 0.5 MG/2 ML NEBU INHALATION SCH (08:13)
[2022-06-23] MEDS: IPRATROPIUM-ALBUTEROL 3 ML NEB INHALATION SCH ×2 (08:13→12:02)
[2022-06-23] MEDS: ASPIRIN 81 MG PO SCH (09:25)
[2022-06-23] MEDS: ENOXAPARIN 30 MG/0.3 ML SYRINGE SQ SCH (09:25)
[2022-06-23] MEDS: FAMOTIDINE 20 MG TAB PO SCH (09:26)
[2022-06-23] MEDS: PIPERACILLIN-TAZOBACTAM 3.375 GM in SODIUM CHLORIDE 0.9% 100 ML IVPB SCH (09:26)
[2022-06-23] MEDS ORDERED: FUROSEMIDE 20 MG TAB PO SCH (09:45)
[2022-06-23 09:59] VITALS: BP 117/67; PULSE 81; TEMP 98.9
[2022-06-23 10:44] LABS: African American GFR (CKD) 39.9 (60.0-200.0); Anion Gap 10.6 mmol/L (10.00-18.00); BUN/Creat Ratio 21.93 Ratio (12.00-20.00); Blood Urea Nitrogen 30.7 mg/dL (9.0-27.0); Calcium 9.1 mg/dL (8.7-10.3); Carbon Dioxide 30.3 mmol/L (20.0-27.5); Non-African American GFR(CKD) 34.4 (60.0-200.0); Potassium 3.9 mmol/L (3.5-5.5)
[2022-06-23 11:25] LABS: Glucose,Whole Blood 125 mg/dL (70-110)
[2022-06-23] MEDS ORDERED: INSULIN ASPART (NovoLOG) 100 UNIT/ML VIAL SQ SCH (12:30)
--- NOTE | 2022-06-23 14:22 | P.DS ---
Providers Date of admission: 06/12/22 20:36 Attending physician: Rafy Hernandez Consults: 06/12/22 20:35 Consult Physician Urgent Consulting Provider: Sophie Brown Consult Reason/Comments: Medical clearance Do you want consulting provider notified?: Yes, Notify in am 06/14/22 10:53 Consult Physician Routine Consulting Provider: Grady Vega Reason/Comments: hypoxia/pneumonia/asp? Do you want consulting provider notified?: Yes Primary care physician: Physician Nonstaff Hospital Course: Final Diagnosis Acute on chronic hypoxic respiratory failure secondary to post obstructive atelectasis currently on 6L nasal cannula. Possible underlying bacterial pneumonia with procalcitonin 0.36. Mild acute diastolic heart failure received IV lasix COPD with acute exacerbation Elevated troponin ACS ruled out Acute kidney injury mostly prerenal, improving Status post right hip hemiarthroplasty Leukocytosis Chronic kidney disease stage 2 to 3 Chronic hypoxic respiratory failure COPD Hypertension hypothyroidism Diabetes Mellitus type 2 with hyperglycemia Chronic daily nicotine use Mild dementia per medical notes Full Code Discharge Disposition Patient is stable for discharge to subacute rehab. She is postoperative day #10 surgical repair of right femoral neck fracture with right hip uncemented hemiarthroplasty. Postoperatively patient required oxygen support with 15L nasal cannula which has been weaned to 4L of oxygen. Patient will discharge on inhalers, and also oral lasix 20 mg po daily. Patient will also finish course of antibiotics with 5 days of oral augmentin BID. Patient counseled extensively on smoking cessation. Lisinopril has been stopped on discharge. Patient will continue on lovenox 40 mg SQ daily for dvt prophylaxis as recommended by orthopedics. Continue on bowel regimen. Recommend to repeat labs in 2 to 3 days. Follow up with Orthopedics on 07/07/22, cardiology, pulmonary. D/C to [facility] for rehab. Hospital Course This is an 86 year old female with medical history of COPD, chronic kidney disease, chronic hypoxic respiratory failure, hypertension, hypothyroidism, diabetes. Patient is a daily smoker, does not wear home oxygen. Patient presents to the hospital after suffering a fall in a parking lot. She had mechanical fall secondary to tripping and was found to have right femoral neck fracture. She was evaluated by orthopedics and underwent surgical repair of right hip. Postoperatively patient went into respiratory distress and chest xray taken showing COPD and possible underlying pneumonia, with bilateral lower lobe infiltrate and also pleural effusion. Cardiology and Pulmonary were consulted. Follow up chest CT taken showing bilateral atelectasis with complete atelectasis of the left lower lobe and partial atelectasis of the right lower lobe. There are pacer lead airways correlation for retained secretions/aspiration. This atelectasis likely represents postobstructive atelectasis. 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 Patient had echocardiogram done showing an EF of 55-60% with mild MR/mild TR no pericardial effusion. proBNP 1160, procalcionin 0.36. She had mild leukocytosis on admission which has improved and has been normal. She was started on empiric antibiotic coverage with IV Zosyn. Which she responded well to additionally patient received 3 doses of IV Lasix daily and diuresed over 10 L of fluid. Oxygen has been weaned down to 4L of oxygen via nasal cannula. Underwent modified barium to rule out aspiration and this was a normal study with no evidence for aspiration or penetration. She does continue to smoke and history of COPD she was given a dose of IV steroids and also started on budesonide. Patient was cleared by cardiology for discharge and recommended to hold lisinopril on discharge. Blood pressure has remained stable. Follow up chest xray shows stable pleural effusions bilaterally, and associated bibasilar atelectasis/acute infiltrate. She has improved oxygenation and increased aeration. Recommend to continue with incentive spirometer. Stable from orthopedics. Stable from pulmonary perspective. Patient will discharge to subacute rehab today. 06/23/2022 Patient is evaluated today sitting up in chair. Reports improvement in shortness of breath, no cough. She has been cleared by pulmonary services for discharge today to so subacute rehab. She is alert x 2 to 3 appropriate. Focal neurological exam is negative she does have generalized diffuse weakness. Patient continues on regular diet and tolerating well. Dressing is intact to right thigh, she reports no pain. +2 pedal pulses no peripheral edema. Lungs are diminished with improved aeration today. S1 and S2 auscultated. Abdomen is soft and nontender. Most recent labs showing white count of 8.83, hgb 8.3, sodium 141, potassium 3.9, BUN 30.7, creatinine 1.4, blood glucose 120s, calcium 9.1. Remains afebrile, heart rate 78, blood pressure 117/67, 97% on 4.5 L of nasal cannula. Stable for DC to rehab today. Total time taken in discharge planning greater than 35 minutes. Please see medication reconciliation for a list of current medication. Thank you for allowing us to participate in the care of this patient. The impression and plan of care has been dictated by Karen Yuan, Nurse Practitioner as directed. Dr. Ramya MD I have performed a history and physical examination and medical decision making of this patient, discussed the same with the dictator, and agree with the dictators assessment and plan as written, documented as a scribe. Based on total visit time, I have performed more than 50% of this visit. Patient Condition at Discharge: Stable Plan - Discharge Summary Discharge Rx Participant: Yes New Discharge Prescriptions: New Enoxaparin [Lovenox] 40 mg SQ DAILY #30 each Sennosides-Docusate Sodium [Senokot-S] 2 tab PO HS #30 tablet Magnesium Hydroxide [Milk of Magnesia Concentrate] 2,400 mg PO DAILY PRN ml PRN Reason: Constipation Budesonide [Pulmicort] 0.5 mg INHALATION RT-BID ml Furosemide [Lasix] 20 mg PO DAILY tab Famotidine [Pepcid] 20 mg PO DAILY tab Amoxic-Pot Clav 500-125 mg [Augmentin 500-125 mg] 1 each PO Q12HR tab Continue Albuterol Inhaler [Ventolin Hfa Inhaler] 2 puff INHALATION RT-Q4H PRN PRN Reason: Shortness Of Breath Aspirin EC [Ecotrin Low Dose] 81 mg PO DAILY HYDROcodone/APAP 7.5-325MG [[place] 7.5-325] 1 tab PO Q6H PRN #4 tab PRN Reason: Severe Pain (Scale 7 To 10) Albuterol Nebulized [Ventolin Nebulized] 2.5 mg INHALATION RT-QID PRN PRN Reason: Shortness Of Breath guaiFENesin 200 mg PO Q6H PRN PRN Reason: Congestion Levothyroxine Sodium [Synthroid] 50 mcg PO DAILY Ondansetron Odt [Zofran ODT] 4 mg PO Q4-6H PRN PRN Reason: Nausea And Vomiting Gabapentin [Neurontin] 100 mg PO HS #3 cap Discontinued lisinopriL [Zestril] 5 mg PO DAILY Discharge Medication List Albuterol Inhaler [Ventolin Hfa Inhaler] 2 puff INHALATION RT-Q4H PRN 06/12/22 [History] Albuterol Nebulized [Ventolin Nebulized] 2.5 mg INHALATION RT-QID PRN 06/12/22 [History] Aspirin EC [Ecotrin Low Dose] 81 mg PO DAILY 06/12/22 [History] Levothyroxine Sodium [Synthroid] 50 mcg PO DAILY 06/12/22 [History] Ondansetron Odt [Zofran ODT] 4 mg PO Q4-6H PRN 06/12/22 [History] guaiFENesin 200 mg PO Q6H PRN 06/12/22 [History] Enoxaparin [Lovenox] 40 mg SQ DAILY #30 each 06/14/22 [Rx] Sennosides-Docusate Sodium [Senokot-S] 2 tab PO HS #30 tablet 06/14/22 [Rx] Amoxic-Pot Clav 500-125 mg [Augmentin 500-125 mg] 1 each PO Q12HR tab 06/23/22 [Rx] Budesonide [Pulmicort] 0.5 mg INHALATION RT-BID ml 06/23/22 [Rx] Famotidine [Pepcid] 20 mg PO DAILY tab 06/23/22 [Rx] Furosemide [Lasix] 20 mg PO DAILY tab 06/23/22 [Rx] Gabapentin [Neurontin] 100 mg PO HS #3 cap 06/23/22 [Rx] HYDROcodone/APAP 7.5-325MG [[place] 7.5-325] 1 tab PO Q6H PRN #4 tab 06/23/22 [Rx] Magnesium Hydroxide [Milk of Magnesia Concentrate] 2,400 mg PO DAILY PRN ml 06/23/22 [Rx] Follow up Appointment(s)/Referral(s): Sophie Brown DO [Doctor of Osteopathic Medicine] - 07/07/22 2:45 pm Shukri Bermudez MD [STAFF PHYSICIAN] - Nate Woodward DO [STAFF PHYSICIAN] - 1 Week (office will call with appointment time) Salvador Mckenzie [NON-STAFF] - As Needed Fortino Longo MD [STAFF PHYSICIAN] - 1 Week Ambulatory/Diagnostic Orders: Basic Metabolic Panel [LAB.AMB] Time Frame: 3 Days, Location: None Selected Complete Blood Count w/diff [LAB.AMB] Time Frame: 3 Days, Location: None Selected Activity/Diet/Wound Care/Special Instructions: Weightbearing as tolerated with walker Keep incision clean and dry. Dressing is not needed. Lovenox 40 mg daily for 4 weeks. May shower over dressing Follow up with Dr. Sophie Brown in 2 weeks. Call [facility] with questions or concerns, Recommend to hold lisinopril on discharge and monitor blood pressure Continue oral lasix 20 mg po daily 5 days of oral augmentin BID on discharge Repeat labs in 2 to 3 days Discharge Disposition: TRANSFER TO SNF/ECF
--- NOTE | 2022-06-23 15:05 | P.PN ---
Subjective Progress Note Date: 06/23/22 86-year-old female patient is being seen for hypoxemia following a hip surgery. The patient presented to the hospital because of a displaced right femoral fracture and the patient was taken to the operating room yesterday and the patient underwent ORIF and today she is postop day #1. Note that the patient's oxygen requirement progressively got worse. Initially she was on 2 L and currently she is on a 15 L of oxygen through a nonrebreather facemask. She does not seem to be in significant respiratory distress. The pulmonary consultation was requested accordingly. Chest x-ray showed opacification lung bases worse on the right and the patient has probably some atelectatic changes in the right brit ng base. An underlying effusion cannot be completely excluded. She is known to have advanced COPD and she is oxygen dependent and she lives with her son. No fever. No chills. Blood gas fro today and this was done on a FiO2 of unknown showed a pH of 7.34 with a pCO2 of 37 and pO2 of 50. I believe this was done an FiO2 of 45-50%. Her d-dimer is expectedly elevated at 3.41 following a orthoped ic surgery. The white cell count from yesterday or today is at 12.5 with a hemoglobin of 9.8 and a platelet count of 152. The rest of the blood work shows a BUN of 34 with a creatinine of 1.6 and a sodium level of 143. The glucose at 181. Troponins are 0.0 44. UA was negative. CPK was 323. The patient is seen today 06/15/2022 in follow-up on the regular medical floor. She is currently resting comfortably in bed. Alert in no acute distress. She did undergo ORIF of the right hip. Postoperative day #2. He is currently maintaining O2 saturations up to 100% on nonrebreather mask. She's afebrile. Hemodynamically stable. Computed tomography scan of the chest revealed bilateral atelectasis with complete atelectasis of the left lower lobe and partial right lower lobe. Opacified areas are seen within is correlate for retained secretions/aspiration. Atelectasis. Moderate severe coronary artery atherosclerosis. Today's chest x-ray reveals slight decrease in retrocardiac consolidation with improved aeration in the right lung. Small effusion. COPD changes. White count 11.2. Hemoglobin 8.1. Platelets 145. Sodium 146. Potassium 4.3. BUN 52. Creatinine 2.3. Glucose 141. Calcitonin 3.75. She is continued on DuoNeb inhalations. Lovenox for DVT prophylaxis. Antibiotics in the form of Zosyn. Attempting to work with the incentive spirometer. The patient is seen today 06/16/2022 in follow-up on the regular medical floor. She is currently sitting up in bed. Awake and alert in no acute distress. Denies any worsening shortness of breath, cough or congestion. Currently maintaining O2 saturations in the mid 90s on 4 L/m per nasal cannula. She did undergo a barium swallow which revealed a normal study. No evidence of aspiration or penetration. White count 9.0. Hemoglobin 8.6. Platelets 162. Sodium 151. Potassium 3.9. BUN 52. Creatinine 1.7. Glucose 129. She is currently on normal saline at 75 ML's per hour. She remains on DuoNeb inhalations, Robitussin, antibiotics in the form of Zosyn. On 06/17/2022, clinically the patient is unchanged. Repeat chest x-ray was done today and the patient showed decreasing in retrocardiac opacity on the left and there is some chronic and this is a changes. Nevertheless, the bottom status is improved and the retrocardiac opacity is also improved. The patient has no specific complaints. The patient remains on Lovenox for DVT prophylaxis. The patient on IV Zosyn. No reported aspiration for now. Tolerating diet. Pain is under good control. Surgical one-sided striking and intact. The patient is postoperative day #4 following an ORIF of a hip fracture. The residual is at 7.2 with hemoglobin 7.8, sodium is at 149 and a potassium level of 3.7 with a BMI 51 and a creatinine of 1.6. Motor the patient is also IV fluids. Is on normal saline at rate of 75 an hour. 06/18/2022, the patient seen for a follow-up. The patient is postop day #5. The patient underwent ORIF of the hip. On today's evaluation, the patient is on 4 L of oxygen by nasal cannula. The patient is using the incentive spirometer. The patient on IV Zosyn. At times, the patient was found to be lethargic. The patient also found to be somewhat confused. Family the bedside. The patient had a CAT scan of the chest that showed right-sided pleural effusion and right basilar atelectasis. Patient's coughing mechanism is extremely poor. She is not doing what efforts with pulmonary toileting. Remains on IV Zosyn. 06/19/2022, the patient is doing well. She is using the incentive spirometer. She is postop day #6 following her right hip ORIF. Surgical 1 site remains dry. The patient remains on IV Zosyn. She has a congested cough. Minimal amounts of sputum production. She had she is trying and she has been trying to expectorate mucus. Her coughing efforts of minimal at this point in time. She remains on Lovenox 30 mg subcu for deep prophylaxis. No issues with pain. Tolerating diet. Family was at the bedside. No new complaints otherwise for now. The white cell count of 7.12. Hemoglobin 7.5. BUN is 26 with a creatinine 1.1 and sodium levels of 140. 06/20/2022, patient is more interactive and awake and alert. She is on 3 L of oxygen by nasal cannula. She is using the incentive spirometer. She has family at the bedside. She has no new complaints. She is postop day #7 following her hip surgery. She is afebrile. She is hemodynamically stable. Surgical one- sided dry clean and intact. The white cell count at 7.6 with a hemoglobin of 7.5. Urine is a 26 with a creatinine 1.2 and a sodium level is at 138. The patient has been on Zosyn as an empiric antibiotic coverage. She is on Lovenox for deep prophylaxis. The patient is seen today 06/21/2022 in follow-up on the regular medical floor. She is currently sitting up in a chair at the bedside. Awake and alert in no acute distress. He currently on 6 L high flow nasal cannula to maintain O2 saturations in the 90s. Chest x-ray reveals small to borderline moderate size bilateral pleural effusions and associated atelectasis. She was given Lasix last evening for worsening shortness of breath. Lung sounds remain diminished bilaterally. No edema. She is continued on antibiotics in the form of Zosyn. Sodium 140. Potassium 3.8. BUN 25. Creatinine 1.31. Glucose 155. ProBNP 1160. She is continued on DuoNeb inhalations. Lovenox for DVT prophylaxis. The patient is seen today 06/22/2022 in follow-up on the regular medical floor. She is currently sitting up in a chair at the bedside. Awake and alert in no acute distress. Remains on 6 L high flow nasal cannula with O2 saturation low 90s. She's afebrile. Hemodynamically stable. Lungs sounds with crackles in the bilateral bases. She did respond well with a -5 L balance from Lasix yesterday. Chest x-ray continues to show persistent bibasilar small to moderate pleural effusions. An additional 40 mg of Lasix IV will be given today. White count 8.8. Hemoglobin 8.3. Sodium 141. Potassium 3.8. BUN 24. Creatinine 1.4. Glucose 128. The patient is seen today 06/23/2022 in follow-up on the regular medical floor. She is sitting up in bed. Awake and alert in no acute distress. He denies any worsening shortness of breath, cough or congestion. Currently maintaining good O2 saturations in the 90s on 4 L/m per nasal cannula. Follow-up chest x-ray r evealed stable small bilateral pleural effusions. Responded well to IV diuretics yesterday. Sodium 141. Potassium 3.9. BUN 30. Creatinine 1.4. Glucose 125. Chronic virus by PCR not detected. The plan is for subacute rehabilitation today. Objective - Vital Signs Vital signs: Vital Signs Temp 98.9 F 06/23/22 08:00 Pulse 81 06/23/22 09:28 Resp 18 06/23/22 09:28 BP 117/67 06/23/22 08:00 Pulse Ox 97 06/23/22 08:00 FiO2 100 06/15/22 07:48 Intake & Output 06/22/22 06/23/22 06/23/22 18:59 06:59 18:59 Weight 43.091 kg Other: Voiding Method Diaper Toilet Diaper Incontinent Diaper # Voids 1 2 # Bowel Movements 1 - Exam GENERAL: The patient is a pleasant 86-year-old female patient, resting comfortably in bed, alert and oriented x3, not in any acute distress. The patient is currently on 4 L/m per nasal cannula. The breathing is nonlabored. Head exam was generally normal. There was no scleral icterus or corneal arcus. Mucous membranes were moist. Edentulous HEENT: Pupils are round and equally reacting to light. EOMI. No scleral icterus. No conjunctival pallor. Normocephalic, atraumatic. No pharyngeal erythema. No thyromegaly. CARDIOVASCULAR: S1 and S2 present. No murmurs, rubs, or gallops. PULMONARY: Lungs sounds with crackles in the bilateral bases, diminished in the bases ABDOMEN: Soft, nontender, nondistended, normoactive bowel sounds. No palpable organomegaly. MUSCULOSKELETAL: No joint swelling or deformity. EXTREMITIES: No cyanosis, clubbing, or pedal edema. NEUROLOGICAL: Gross neurological examination did not reveal any focal deficits. - Labs CBC & Chem 7: 06/22/22 06:29 06/23/22 06:55 Labs: Abnormal Lab Results - Last 24 Hours (Table) 06/22/22 06/22/22 06/23/22 Range/Units 16:23 20:23 06:04 Carbon Dioxide (20.0-27.5) mmol/L BUN (9.0-27.0) mg/dL Est GFR (CKD-EPI)AfAm (60.0-200.0) Est GFR (CKD-EPI)NonAf (60.0-200.0) BUN/Creatinine Ratio (12.00-20.00) Ratio POC Glucose (mg/dL) 173 H 275 H 112 H (70-110) mg/dL 06/23/22 06/23/22 Range/Units 06:55 11:23 Carbon Dioxide 30.3 H (20.0-27.5) mmol/L BUN 30.7 H (9.0-27.0) mg/dL Est GFR (CKD-EPI)AfAm 39.9 L (60.0-200.0) Est GFR (CKD-EPI)NonAf 34.4 L (60.0-200.0) BUN/Creatinine Ratio 21.93 H (12.00-20.00) Ratio POC Glucose (mg/dL) 125 H (70-110) mg/dL Assessment and Plan Assessment: Acute on chronic hypoxic respiratory failure. Currently on 4.5 liters nasal cannula. Pro-calcitonin 0.36. She is continued on bronchodilators and Zosyn. Educated with the incentive spirometer. Chest x-ray is also showing bilateral pleural effusions. Responding well to IV diuretics. D-dimer, nonspecific elevation secondary to orthopedic surgery and femur fracture Right femur fracture post-ORIF on 06/13/2022 Hypernatremia, improved, currently 140 COPD Chronic hypoxic respiratory failure Dementia Impaired hearing/deafness Chronic kidney disease stage 2-3 Diabetes mellitus Plan: The patient was seen and evaluated Chest x-ray, labs and medications reviewed Currently stable and on 4.5 L of oxygen Cleared for discharge to subacute rehabilitation Encourage the increased use of the incentive spirometer Titrate the FiO2 as tolerated Small dose of diuretic Course of antibiotics in the form of Augmentin 5 more days I have personally seen and examined the patient, performed the documentation and the assessment and plan as written. Number of minutes spent on the visit: 10.
[2022-06-23] MEDS ORDERED: AMOXIC-POT CLAV 500-125 MG 1 EACH TAB PO SCH (21:00)
--- NOTE | 2022-06-24 15:30 | CDI ---
Documentation Clarification Form Date: 06/24/2022 03:20:01 PM From: Alissa Bernal Phone: Admit Date: 06/12/2022 08:36:00 PM Patient Name: Brunilda Elizabeth Visit Number: [id number] Discharge Date: 06/23/2022 04:11:00 PM ATTENTION: The Clinical Documentation Specialists (CDI) and [facility] Coding Staff appreciate your assistance in clarifying documentation. Please respond to the clarification below the line at the bottom and electronically sign. The CDI & [facility] Coding staff will review the response and follow-up if needed. Please note: Queries are made part of the Legal Health Record. If you have any questions, please contact the author of this message via ITS. Dr. Myles Bui Chronic kidney disease stage 2-3 is documented per 06/15/22 Progress Note. Additional clarification regarding the stage of CKD is requested. History/Risk Factors: 82yo F, RT femur fracture s/p hip hemiarthroplasty, COPD, A/C HRF, Dementia, impaired hearing/deafness, DMII w CKD, ADHF, MARIA ELENA, dehydration Clinical Indicators: BUN 34.1 H (9.0-27.0) mg/dL BUN/Creatinine Ratio 21.18 H GFR: NonAf 29.1 L (60.0-200.0); AfAm 33.7 L (60.0-200.0) Treatment: f/u Please clarify the stage of the CKD, if known: [ ] CKD Stage 2 (GFR 60-89) [ ] CKD Stage 3 (GFR 30-59) [ ] CKD Stage 3a (GFR 45-59) [ x ] CKD Stage 3b (GFR 30-44) [ ] CKD Stage 4 (GFR 15-29) [ ] Other, please specify [ ] Unable to determine (Template last revised: August 2020) MTDD
== END 2022-06-23 16:11 | DRG 521 ==
LOC: EC 17:00 → 4SSUR 20:36
PROVIDERS: ADMIT Hospitalist; ATTEND Hospitalist
PROC: 0SRR0JA Replacement of Right Hip Joint, Femoral Surface with Synthetic Substitute, Uncemented, Open Approach (ICD-10-PCS; principal; 2022-06-13 11:43)
PROC: 5A0945A Assistance with Respiratory Ventilation, 24-96 Consecutive Hours, High Flow/Velocity Cannula (ICD-10-PCS; 2022-06-21)
DX: S72.001A Fracture of unspecified part of neck of right femur, initial encounter for closed fracture (principal); I50.31 Acute diastolic (congestive) heart failure; J96.21 Acute and chronic respiratory failure with hypoxia; J15.9 Unspecified bacterial pneumonia; N17.9 Acute kidney failure, unspecified; J44.0 Chronic obstructive pulmonary disease with (acute) lower respiratory infection; J44.1 Chronic obstructive pulmonary disease with (acute) exacerbation; E87.0 Hyperosmolality and hypernatremia; I13.0 Hypertensive heart and chronic kidney disease with heart failure and stage 1 through stage 4 chronic kidney disease, or unspecified chronic kidney disease; E87.1 Hypo-osmolality and hyponatremia; J98.11 Atelectasis; E11.22 Type 2 diabetes mellitus with diabetic chronic kidney disease; N18.32 Chronic kidney disease, stage 3b; E03.9 Hypothyroidism, unspecified; E11.65 Type 2 diabetes mellitus with hyperglycemia; I77.810 Thoracic aortic ectasia; I08.1 Rheumatic disorders of both mitral and tricuspid valves; Z99.81 Dependence on supplemental oxygen; D72.828 Other elevated white blood cell count; W01.0XXA Fall on same level from slipping, tripping and stumbling without subsequent striking against object, initial encounter; F03.B0 Unspecified dementia, moderate, without behavioral disturbance, psychotic disturbance, mood disturbance, and anxiety; H91.93 Unspecified hearing loss, bilateral; F17.210 Nicotine dependence, cigarettes, uncomplicated; E86.0 Dehydration; I25.10 Atherosclerotic heart disease of native coronary artery without angina pectoris; Y92.481 Parking lot as the place of occurrence of the external cause; Z20.822 Contact with and (suspected) exposure to COVID-19; Z79.890 Hormone replacement therapy; Z79.899 Other long term (current) drug therapy; Z79.82 Long term (current) use of aspirin
CPT/HCPCS: 36415; 36600; 71045; 71250; 72170; 73501; 73502; 74230; 80048; 80053; 81003; 82550; 82553; 82805; 83880; 84145; 84484; 85025; 85027; 85379; 85610; 85730; 86850; 86900; 86901; 87635; 88305; 88311; 93005; 93306; 94640; 94760; 96374; 99285